=== PATIENT | male | born 1995 | race African-American/Black ===

== ENCOUNTER 2023-04-05 13:38 | Emergency (ER) | payer MEDICARE, MEDICAID, SELFPAY ==
[2023-04-05 13:54] VITALS: BP 166/124; PULSE 122; O2SAT 98
--- NOTE | 2023-04-05 13:57 | ED.PSYCH ---
HPI - Psych General Chief Complaint: Psychiatric Symptoms Stated Complaint: SECTION 12 Time Seen by Provider: 04/05/23 13:42 Source: patient Mode of arrival: EMS Limitations: no limitations History of Present Illness HPI Narrative: Patient comes to the emergency room via ambulance from home. Patient moved from [place] approximately 3 months ago. Per EMS, the patient's mother informed EMS that the patient has history of schizophrenia, patient has not been taking his medications for over 3 months. Patient admits that he has not been seen by a provider here yet. Patient denies suicidal or homicidal ideation. Patient states that he is able to care for himself. According to the patient's mother who told EMS, the patient cannot take care of himself, has been acting erratic. According to the patient's mother, the patient has been using unprescribed methamphetamines, Adderall Related Data Home Medications Medication Instructions Recorded Confirmed aripiprazole 5 mg tablet (Abilify) 5 mg PO DAILY 04/05/23 04/05/23 metformin 500 mg tablet 500 mg PO DAILY 04/05/23 04/05/23 Allergies Allergy/AdvReac Type Severity Reaction Status Date / Time No Known Allergies Allergy Verified 04/05/23 14:08 Review of Systems Review of Systems: Constitutional : No Weight loss, No Fever, No Chills, No Night Sweats, No Fatigue, No Malaise ENT/Mouth : No Hearing loss, No Ear Pain, No Nasal Congestion, No Sinus Pain, No Hoarseness, No sore throat, No Rhinorrhea, No Swallowing Difficulty Eyes: No Eye Pain, No Swelling, No Redness, No Foreign Body, No Discharge, No Vision Changes Cardiovascular : No Chest Pain, No SOB, No Dyspnea on Exertion, No Orthopnea, No Edema, No Palpitations Respiratory : No Cough, No Sputum, No Wheezing, No Smoke Exposure, No Dyspnea Gastrointestinal : No Nausea, No Vomiting, No Diarrhea, No Constipation, No abdominal Pain, No Hematochezia, No Melena Genitourinary : no irregular bleeding, No Dysuria, No Urinary Frequency, No Hematuria, No Urinary Incontinence, No Urgency, No Flank Pain, No Urinary Flow Changes, No Hesitancy Musculoskeletal : No joint pain, No Myalgias, No Joint Swelling Skin : No Skin Lesions, No rash Neuro : No Weakness, No Numbness, No Paresthesias, No Loss of Consciousness, No Dizziness, No Headache Psych : No Anxiety/Panic, No Depression, not suicidal, homicidal, states can take care of himself, admits being off medications Heme/Lymph: No Bruising, No Bleeding,No Lymphadenopathy Endocrine : No Polyuria, No Polydipsia, No Temperature Intolerance PMFSH Past Medical History Medical History (Updated 04/05/23 @ 14:05 by Beba Braden MD) Schizophrenia Social History Social History Smoked in Last 30 Days: No Use of substances other than those prescribed or required for medical reasons: No Advance Directives: No Advance Directives Information Provided: Yes Physical Exam Vital Signs: Vital Signs: Last Vital Signs Temp 98.1 F 04/05/23 13:58 Pulse 95 04/05/23 13:58 Resp 18 04/05/23 13:58 BP 149/106 H 04/05/23 13:58 Pulse Ox 100 04/05/23 13:58 O2 Del Method Room Air 04/05/23 13:58 BMI result Body Mass Index 27.1 Const: Other: Appearance: Alert. Oriented X3. No acute distress. Eyes: Pupils equal, round and reactive to light. Dilated pupils bilaterally ENT: Pharynx normal. Neck: Normal inspection. Neck supple. No lymph nodes noted. No crepitus CVS: Normal heart rate and rhythm. Pulses normal. Normal S1 and S2 Respiratory: No respiratory distress. Breath sounds normal. No Wheezing. No rales Abdomen: Soft and nontender. No rigidity. No distention. Skin: Skin warm and dry. Normal skin color. Normal skin turgor. Extremities: No lower extremity edema. No Lacerations. No Rash Neuro: Oriented X 3. No motor deficit. No sensory deficit. Moving all extremities. No slurred speech. CN 2 through 12 grossly intact Psych: calm, cooperative, odd affect Course Course Course Narrative: -patient's labs pending -patient was Section 12 in the community by a clinician -care team consult pending Medical Decision Making Medical Decision Making MDM Narrative: -care team evaluated the patient. At this time, patient will remain on a Section 12, care team will re-evaluate the patient in the morning. -per Care Team, requesting a case management consult, seems that patient is not taking his medications, family requesting a visiting nurse Differential Diagnosis Differential Diagnoses: The differential diagnosis associated with the presentation includes (Schizophrenia, bipolar disorder, polysubstance abuse) Admission/Observation Consideration of admission/observation: Escalation of care including admission/observation considered (Patient is on a Section 12, waiting to be seen by the care team to determine patient's disposition) Lab Data 04/05/23 15:10 04/05/23 15:10 Labs: Lab Results 04/05/23 04/05/23 Range/Units 14:01 15:10 WBC 8.0 (4.8-10.8) X10*3/uL RBC 5.04 (4.60-5.80) X10*6/uL Hgb 15.9 (14.0-18.0) g/dl Hct 44.9 (42.0-52.0) % MCV 89.1 (80.0-98.0) fL MCH 31.5 (27.0-33.0) pg MCHC 35.4 (31.0-36.0) g/dl RDW 11.9 (11.0-16.0) % Plt Count 305 (160-400) X10*3/uL MPV 10.1 (9.4-12.4) fL Immature Gran % (Auto) 0.3 (0.0-0.4) % Neut % (Auto) 69.1 (45-73) % Lymph % (Auto) 20.9 (20-40) % [place] % (Auto) 8.8 (2-11) % Eos % (Auto) 0.3 (0-4) % Baso % (Auto) 0.6 (0-2) % Lymph # (Auto) 1.7 (1.2-4.9) X10*3/uL [place] # (Auto) 0.7 (0.1-1.2) X10*3/uL Eos # (Auto) 0.0 (0.0-0.4) X10*3/uL Baso # (Auto) 0.1 (0.0-0.2) X10*3/uL Abs Immat Gran (auto) 0.02 (0.00-0.03) X10*3/uL Absolute Neuts (auto) 5.5 (2.0-8.3) x10*3/uL Absolute Nucleated RBC 0.000 (0.0-0.012) X10*3/uL Nucleated RBC % (auto) 0.0 (0.0-0.2) /100WBC Sodium 138 (135-145) mmol/L Potassium 3.0 L (3.3-5.1) mmol/L Chloride 102 (96-108) mmol/L Carbon Dioxide 25 (22-29) mmol/L Anion Gap 14 (12-20) BUN 18 H (9-16) mg/dL Creatinine 0.92 (0.5-1.4) mg/dL Estim Creat Clear Calc 131.2 Estimated GFR > 60 Random Glucose 115 (60-115) mg/dL Calcium 9.7 (8.4-10.2) mg/dL Total Bilirubin 0.7 (0.0-1.0) mg/dL Direct Bilirubin 0.3 (0.0-0.5) mg/dL AST 48 H (5-37) U/L ALT 44 H (0-40) U/L Alkaline Phosphatase 67 (39-117) U/L Total Protein 7.8 (6.5-8.0) g/dL Albumin 4.4 (3.5-5.0) g/dL Urine Color Dark Yellow Urine Appearance Clear Urine pH 6.0 (5.0-9.0) Ur Specific [place] >= 1.030 H (1.005-1.025) Urine Protein 100 (2+) H (Neg-Trace) mg/dL Urine Glucose (UA) Negative (Negative) mg/dL Urine Ketones 15 (Negative) mg/dL Urine Blood Negative (Negative) Urine Nitrite Negative (Negative) Ur Leukocyte Esterase Negative (Negative) Urine RBC 3-5 H (0-2) /HPF Urine WBC 0-5 (0-5) /HPF Ur Squamous Epith Cells 3-5 (0-2) /HPF Urine Bacteria None Seen (None Seen) Hyaline Casts 6-10 (0-2) /LPF Granular Casts Present Urine Opiates Screen Not Detected (Not Detect) Urine Fentanyl Screen Not Detected (Not Detect) Ur Barbiturates Screen Not Detected (Not Detect) Ur Phencyclidine Scrn Not Detected (Not Detect) Ur Amphetamines Screen POSITIVE H (Not Detect) U Benzodiazepines Scrn Not Detected (Not Detect) Urine Cocaine Screen Not Detected (Not Detect) U Marijuana (THC) Screen POSITIVE H (Not Detect) Ethyl Alcohol < 10 mg/dL Discharge Plan Discharge Clinical Impression: Schizophrenia Patient Disposition: Still a Patient Prescriptions: No Action metformin 500 mg Tablet 500 mg PO DAILY aripiprazole [Abilify] 5 mg Tablet 5 mg PO DAILY Interventions: [place]-Suicide Risk Severity Scale Last Done: 04/05/23 14:35
[2023-04-05 13:58] VITALS: BP 149/106; PULSE 95; RESP 18; TEMP 36.7; O2SAT 100; BMI 27.1
[2023-04-05 14:10] LABS: Appearance Urine Clear; Color Urine Dark Yellow; Glucose Urine UA Negative (Negative); Leukocyte Esterase Urine Negative (Negative); Nitrite Urine Negative (Negative); Specific Gravity - Urine >= 1.030 (1.005-1.025); UMIC TRIGGER UACC YES; Urine Blood Negative (Negative); Urine Ketones 15 mg/dL (Negative); Urine Protein 100 (2+) mg/dL (Neg-Trace)
[2023-04-05 14:17] LABS: Amphetamine Screen Urine POSITIVE (Not Detect); Barbiturates, Urine Not Detected (Not Detect); Benzodiazepines Screen Urine Not Detected (Not Detect); Cannabinoid Screen Urine POSITIVE (Not Detect); Cocaine Screen Urine Not Detected (Not Detect); Fentanyl, urine Not Detected (Not Detect); Opiate Screen Urine Not Detected (Not Detect); Phencyclidine Screen Urine Not Detected (Not Detect)
[2023-04-05 14:22] LABS: Bacteria Urine None Seen (None Seen); Granular Casts Urine Present; WBC Urine 0-5 /HPF (0-5)
--- NOTE | 2023-04-05 14:38 | PC.NURSE ---
Pt alert/oriented. Presents to ED on section 12 d/t family concerns. Pt appears anxious when spoken to however calm and polite. States here d/t argument with mother at home. But reports feeling safe in current environment. Denies SI or HI and denies history of it or attempts. Sitting on edge of bed, staring at surroundings, ?paranoia. Pt appears guarded and will only answer yes or no with most questions asked. Med rec completed
[2023-04-05 15:23] LABS: MANUAL DIFF FLAG NO
[2023-04-05 15:26] LABS: Basophils Absolute Auto 0.1 X10*3/uL (0.0-0.2); Basophils Percent Auto 0.6 % (0-2); Eosinophils Percent Auto 0.3 % (0-4); Hematocrit 44.9 % (42.0-52.0); Hemoglobin 15.9 g/dl (14.0-18.0); Imm Gran Abs Auto 0.02 X10*3/uL (0.00-0.03); Imm Gran Pct Auto 0.3 % (0.0-0.4); Lymphocytes Absolute Auto 1.7 X10*3/uL (1.2-4.9); Lymphocytes Percent Auto 20.9 % (20-40); Mean Corpuscular HGB Conc 35.4 g/dl (31.0-36.0); Mean Corpuscular Hemoglobin 31.5 pg (27.0-33.0); Mean Corpuscular Volume 89.1 fL (80.0-98.0); Mean Platelet Volume 10.1 fL (9.4-12.4); Monocytes Absolute Auto 0.7 X10*3/uL (0.1-1.2); Monocytes Percent Auto 8.8 % (2-11); Neutrophils Absolute Auto 5.5 x10*3/uL (2.0-8.3); Neutrophils Percent Auto 69.1 % (45-73); Platelet Count 305 X10*3/uL (160-400); Red Blood Count 5.04 X10*6/uL (4.60-5.80); Red Cell Distribution Width 11.9 % (11.0-16.0)
[2023-04-05 15:58] LABS: Alanine Aminotransferase 44 U/L (0-40); Albumin Level 4.4 g/dL (3.5-5.0); Alkaline Phosphatase 67 U/L (39-117); Anion Gap 14 (12-20); Aspartate Amino Transferase 48 U/L (5-37); Bilirubin Direct 0.3 mg/dL (0.0-0.5); Bilirubin Total 0.7 mg/dL (0.0-1.0); Blood Urea Nitrogen 18 mg/dL (9-16); Calcium 9.7 mg/dL (8.4-10.2); Carbon Dioxide 25 mmol/L (22-29); Chloride 102 mmol/L (96-108); Creatinine Clr Calc Pharmacy 131.2; Estimated Glomerular Filt Rate > 60; Ethanol < 10 mg/dL; Glucose Random 115 mg/dL (60-115); Sodium 138 mmol/L (135-145); Total Protein 7.8 g/dL (6.5-8.0)
--- NOTE | 2023-04-05 20:39 | MHC.CARE ---
T/W and Pt's mother discussed [facility] application process and she reports that she will follow through with this. VNA order has been put in by the provider to which the Pt is agreeable to. Mother would like to see if [facility] appointments could be moved to a closer date and is interested in a dairy nutritionist through [facility] to which the Pt is also agreeable to.
[2023-04-06 05:43] VITALS: BP 119/80; PULSE 99; RESP 18; TEMP 37.2; O2SAT 98
--- NOTE | 2023-04-06 08:22 | PC.NURSE ---
Late entry for resume of care at 0700, pt is currently resting comfortably safety measures in place, Q15 mintute checks maintained
[2023-04-06] MEDS: ARIPiprazole 5 MG TABLET PO (09:07)
[2023-04-06] MEDS: metFORMIN HCl 500 MG TABLET PO (09:07)
== END 2023-04-06 10:31 | disposition home or self-care (01) ==
PROVIDERS: Emergency Medicine; Emergency Provider Emergency Medicine Emergency Medical Services
DX: F25.9 Schizoaffective disorder, unspecified (principal); Z79.899 Other long term (current) drug therapy
CPT/HCPCS: 36415; 80048; 80076; 80307; 81001; 85025; 99284; 99285; S9485

== ENCOUNTER 2023-08-02 08:08 | Outpatient (AMB) | payer MEDICARE, MEDICAID, SELFPAY ==
--- NOTE | 2023-08-02 08:11 | A.OFFPC_ITS ---
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 Intake Note: Pt is here today to est care as a New Patient Allergies No Known Allergies Allergy (Verified 08/02/23 08:37) Medication List - Last Reconciled 08/02/23 by Candis Barksdale MD aripiprazole (Abilify) 15 mg PO DAILY Tobacco use date assessed: 08/02/23 Dental Screening Dental Screen Date: 08/02/23 Did you have a dental visit in the last 12 months?: No Was dental information given to patient?: Patient has dentist HPI 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 He recently came back here to [facility] after living in [place] for 5 years. Patient at that time was homeless, and was admitted at psychiatric unit for treatment of schizophrenia, Adderall abuse and history of cocaine use. As per his mother, there is strong family history of mental illness on both sides. He smokes cigarettes at least a pack a day and as per mother by psych [place] off the streets. He still has not been able to get an appointment to see a psychiatrist and getting contact with a therapist [facility] Medical History (Updated 08/08/23 @ 00:34 by Candis Barksdale MD) Elevated liver enzymes Adderall use disorder, mild, abuse History of cocaine use History of foot ulcer Schizophrenia Surgical History (Updated 08/02/23 @ 09:09 by Candis Barksdale MD) S/P ear surgery Family History (Updated 08/02/23 @ 09:13 by Candis Barksdale MD) Brother Substance use disorder Bipolar disorder Maternal Grandmother Schizophrenia Paternal Grandmother Mental health disorder Mother Diabetes mellitus Anxiety disorder Maternal Uncle Bipolar disorder Alcoholism Father Essential hypertension Social History [facility] Patient Tobacco Use Status: Current everyday Tobacco user Cigarette Packs Per Day: 1 e-Cigarette/Vaping Use: Currently Using service: No Current occupational status: unemployed Cognitive needs: No Hearing needs: No Vision needs: Yes Questionnaire PHQ-9 Over the last 2 weeks, how often have you been bothered by any of the following problems? 1. Little interest or pleasure in doing things: nearly every day 2. Feeling down, depressed, or hopeless: nearly every day 3. Trouble falling or staying asleep, or sleeping too much: nearly every day 4. Feeling tired or having little energy: more than half the days 5. Poor appetite or overeating: more than half the days 6. Feeling bad about yourself - or that you are a failure or have let yourself or your family down: more than half the days 7. Trouble concentrating on things, such as reading the newspaper or watching television: nearly every day 8. Moving or speaking so slowly that other people could have noticed. Or the opposite - being so fidgety or restless that you have been moving around a lot more than usual: not at all 9. Thoughts that you would be better off or of hurting yourself in some way: nearly every day Total score: 21 Depression Screening Interpretation: Positive (Diagnosed to have schizophrenia and cocaine and Adderall abuse, referred to mental health coordinator for as sistance in getting in to see psych) Depression Screening Follow-up: Existing condition and Community Mental Health Worker F/U Depression Screening Done: Yes 70434 - PHQ-9 Billing: Yes Source: Developed by Drs. Vasu Dang, Radha Rush, Sammy Nova and colleagues, with an educational reyna from [employer]. Thrive Questionnaire Date Thrive assessed: 08/02/23 I am a: Patient What is your living situation today?: I have a steady place to live Within the past 12 months, did the food you bought not last and you didn't have the money to get more?: Never true Within the past 12 months, did you worry whether your food would run out before you got money to buy more?: Never true Do you have trouble paying for medicines?: No Do you have trouble getting transportation to medical appointments?: No Do you have trouble paying your heating and electricity bill?: No Do you have trouble taking care of your child, family member or friend?: No Do you have trouble with day-to-day activities such as bathing, preparing meals, shopping, managing finances, etc.?: Yes Are you currently unemployed and looking for a job?: Yes Are you interested in more education?: No THRIVE Score: 0 AUDIT C Alcohol Use Questionnaire (AUDIT-C) 1. How often do you have a drink containing alcohol?: Never Total Score: 0 JESSIE-7 AMB Questionnaire JESSIE-7 Date JESSIE - 7 assessed: 08/02/23 Feeling nervous, anxious, or on edge: 0 = Not at all Not being able to stop or control worryin = Not at all Worrying too much about different things: 0 = Not at all Trouble relaxin = Not at all Being so restless that it is hard to sit still: 0 = Not at all Becoming easily annoyed or irritable: 0 = Not at all Feeling afraid as if something awful might happen: 0 = Not at all Total JESSIE-7 score (0-4 normal; 5-9 mild; 10-14 moderate; 15-21 severe): 0 Source: Developed by Drs. Vasu Dang, Radha Rush, Sammy Nova and colleagues, with an educational reyna from [employer]. JESSIE-7 Assessment Billing JESSIE-7 Assessment Tool: JESSIE-7 Assessment 39145 Review of Systems Const Details: Most of the history obtained from mother as patient not very communicative Reports as per HPI and Reports difficulty sleeping Eyes Reports no additional complaints ENT Reports nasal congestion, Denies nasal discharge, Denies nose pain, Denies post nasal drip, Denies sinus pain and Denies sinus pressure Card Denies chest pain, Denies irregular heart rhythm, Denies lightheadedness and Denies dyspnea Resp Denies cough and Denies dyspnea GI Reports no additional complaints Reports no additional complaints Musc Reports no additional complaints Skin/Breast Denies rash Neuro Reports behavioral changes and Denies seizure-like activity Psych Reports abnormal sleep pattern, Reports behavioral changes, Reports change in appetite, Reports auditory hallucinations, Reports anhedonia, Reports mood swings, Reports visual hallucinations and Reports hallucinations Endo Reports no additional complaints [place]lin/Lymph Reports no additional complaints Aller/Immun Reports no additional complaints Physical exam (Primary Care) Vital Signs: Last Vital Signs Pulse 67 08/02/23 08:13 BP 118/80 08/02/23 08:13 Pulse Ox 96 08/02/23 08:13 Oxygen Delivery Method Room Air 08/02/23 08:13 BMI result Body Mass Index 27.8 Tobacco/Smoking Status: Tobacco use Status Tobacco use date assessed 08/02/23 08/02/23 08:22 Patient Tobacco Use Status Current everyday Tobacco 08/02/23 08:22 e-Cigarette/Vaping Use Currently Using 08/02/23 08:22 PHQ-9: PHQ-9 Score PHQ-9: Total score 27 08/02/23 09:40 Depression Screening Interpretation: Positive (Diagnosed to have schizophrenia and cocaine and Adderall abuse, referred to mental health coordinator for assistance in getting in to see psych) Depression Screening Follow-up: Existing condition and Community Mental Health Worker F/U Thrive Assessment: Date of Thrive Assessment Date Thrive assessed 08/02/23 08/02/23 08:22 Const General: no acute distress and alert HENMT Head: Yes normocephalic Ears: external ears normal and TM's normal bilaterally General nose exam: Normal external nose present and No nasal discharge present Face and sinus: Yes face symmetric Mouth: Normal oral and palatal mucosa present, tongue normal, oropharynx normal and moist mucous membranes Eyes General: appearance normal, both eyes and all related structures Eyelids: Yes eyelids normal Conjunctivae: conjunctivae normal Sclerae: sclerae normal Pupils: Equal, round and reactive pupils present EOM: EOMs intact bilaterally Neck Neck: Yes full ROM, Yes no lymphadenopathy and Yes supple Thyroid: Thyroid normal Resp Effort & Inspection: normal respiratory effort Auscultation: clear to auscultation bilaterally Cardio Rate: regular rate Rhythm: regular rhythm Heart sounds: S1 normal heart sound present and S2 normal heart sound present GI Palpation (GI): Soft to palpation, nontender, no guarding and no masses Auscultation: normal bowel sounds General: Yes no CVA tenderness Male General Exam: No hernia Testes: no testicular mass Back/Spine/Pelvis Back: no CVA tenderness and No back tenderness Skin General skin exam: no rashes or lesions noted Neuro General: gait normal, moves all extremities, Normal light touch and pain sensation, no focal motor deficits and CN's II-XI intact bilaterally Cranial nerves: Yes Equal, round and reactive pupils present Cognition (Neuro): normal cognition Gait exam (Neuro): Normal gait present Motor exam (neuro): 5/5 motor strength present throughout Extrem General: Yes normal to inspection, Yes full ROM, Yes no joint enlargement, Yes no pedal edema and Yes normal gait Psych Appearance: grossly normal and well kempt Mental Status: mental status grossly normal Speech and movement: Slowed movement present (Neuro) Affect: Blunted affect present Attitude: cooperative Results AMB Hemoglobin A1c AMB Hemoglobin A1c 4.8 % Last Edit by Fransisco Rolon MA on 08/02/23 09:13 Results Reviewed Results Reviewed: Laboratory Last Values Hgb A1c (Clinic) 4.8 % (4.0-6.0) 08/02/23 09:07 Assessment and Plan Assessment & Plan (1) Elevated liver transaminase level: Code(s): R74.01 - Elevation of levels of liver transaminase levels (2) Annual visit for general adult medical examination with abnormal findings: Code(s): Z00.01 - Encounter for general adult medical examination with abnormal findings Plan: Will check appropriate labs. Recommended dental visit every 6 months and regular eye exams, at least every 2 years. Instructed to do self- testicular exam to check for any mass. No history of COVID vaccination, reminded to get yearly flu shot, up-to-date with his Tdap, received 2 MMR vaccine in the past as documented. (3) Hypokalemia: Code(s): E87.6 - Hypokalemia Plan: Noted to be having low potassium on previous labs, will check see potassium level (4) Elevated liver enzymes: Code(s): R74.8 - Abnormal levels of other serum enzymes Plan: Comprehensive metabolic panel ordered (5) Adderall use disorder, mild, abuse: Code(s): F15.10 - Other stimulant abuse, uncomplicated Plan: Referred to see addiction clinic at [place] with my request (6) History of cocaine use: Code(s): F14.91 - Cocaine use, unspecified, in remission Plan: Referred to addiction medicine clinic in [place] for further assistance and help with substance abuse Orders: Orders TSH reflex Free T4 08/02/23 E87.6 - Hypokalemia, R73.01 - Impaired fasting glucose, R74.01 - Elevation of levels of liver transaminase levels, Z00.01 - Encounter for general adult medical examination with abnormal findings, Z13.220 - Encounter for screening for lipoid disorders Comprehensive [place]. Panel Fast 08/02/23 E87.6 - Hypokalemia, R73.01 - Impaired fasting glucose, R74.01 - Elevation of levels of liver transaminase levels, Z00.01 - Encounter for general adult medical examination with abnormal findings, Z13.220 - Encounter for screening for lipoid disorders Complete Blood Count Auto Diff 08/02/23 E87.6 - Hypokalemia, R73.01 - Impaired fasting glucose, R74.01 - Elevation of levels of liver transaminase levels, Z00.01 - Encounter for general adult medical examination with abnormal findings, Z13.220 - Encounter for screening for lipoid disorders Vitamin D 25-OH Total 08/02/23 E87.6 - Hypokalemia, R73.01 - Impaired fasting glucose, R74.01 - Elevation of levels of liver transaminase levels, Z00.01 - Encounter for general adult medical examination with abnormal findings, Z13.220 - Encounter for screening for lipoid disorders Vitamin B12 and Folate 08/02/23 E87.6 - Hypokalemia, R73.01 - Impaired fasting glucose, R74.01 - Elevation of levels of liver transaminase levels, Z00.01 - Encounter for general adult medical examination with abnormal findings, Z13.220 - Encounter for screening for lipoid disorders AMB Hemoglobin A1c 08/02/23 Z13.9 - Encounter for screening, unspecified AMB EKG-In Office 08/02/23 F14.91 - Cocaine use, unspecified, in remission, F15.10 - Other stimulant abuse, uncomplicated AMB Hemoglobin A1c 08/02/23 R73.01 - Impaired fasting glucose Coding Level of Care Code New Pt [facility] Care [id number] Diagnoses Elevated liver transaminase level R74.01 Annual visit for general adult medical examination with abnormal findings Z00.01 Hypokalemia E87.6 Elevated liver enzymes R74.8 Adderall use disorder, mild, abuse F15.10 History of cocaine use F14.91 Additional Codes JESSIE-7 Assessment Billing - JESSIE-7 Assessment Tool: JESSIE-7 Assessment [id number] ([id number])
[2023-08-02 08:13] VITALS: BP 118/80; PULSE 67; O2SAT 96; BMI 27.8
== END 2023-08-02 17:18 | disposition home or self-care (01) ==
PROVIDERS: PCP Internal Medicine; Visit Provider Internal Medicine
DX: R73.01 Impaired fasting glucose (principal)
CPT/HCPCS: 83036; 99385

== ENCOUNTER 2023-08-02 09:41 | Outpatient (REF) | payer MEDICARE, MEDICAID, SELFPAY ==
[2023-08-02 10:26] LABS: MANUAL DIFF FLAG NO
[2023-08-02 10:35] LABS: Basophils Absolute Auto 0.1 X10*3/uL (0.0-0.2); Basophils Percent Auto 0.9 % (0-2); Eosinophils Absolute Auto 0.1 X10*3/uL (0.0-0.4); Eosinophils Percent Auto 2.1 % (0-4); Hematocrit 45.6 % (42.0-52.0); Hemoglobin 15.4 g/dl (14.0-18.0); Imm Gran Abs Auto 0.01 X10*3/uL (0.00-0.03); Imm Gran Pct Auto 0.2 % (0.0-0.4); Lymphocytes Absolute Auto 2.2 X10*3/uL (1.2-4.9); Mean Corpuscular HGB Conc 33.8 g/dl (31.0-36.0); Mean Corpuscular Hemoglobin 31.6 pg (27.0-33.0); Mean Corpuscular Volume 93.6 fL (80.0-98.0); Mean Platelet Volume 9.8 fL (9.4-12.4); Monocytes Absolute Auto 0.3 X10*3/uL (0.1-1.2); Neutrophils Absolute Auto 2.9 x10*3/uL (2.0-8.3); Neutrophils Percent Auto 51.8 % (45-73); Platelet Count 292 X10*3/uL (160-400); Red Blood Count 4.87 X10*6/uL (4.60-5.80); Red Cell Distribution Width 13.1 % (11.0-16.0); White Blood Count 5.7 X10*3/uL (4.8-10.8)
[2023-08-02 11:19] LABS: Alanine Aminotransferase 12 U/L (0-40); Albumin Level 4.2 g/dL (3.5-5.0); Alkaline Phosphatase 66 U/L (39-117); Anion Gap 10 (12-20); Aspartate Amino Transferase 15 U/L (5-37); Bilirubin Total 0.2 mg/dL (0.0-1.0); Blood Urea Nitrogen 10 mg/dL (9-16); Calcium 9.8 mg/dL (8.4-10.2); Carbon Dioxide 32 mmol/L (22-29); Chloride 105 mmol/L (96-108); Estimated Glomerular Filt Rate > 60; Glucose Fasting 77 mg/dL (60-99); Potassium 3.9 mmol/L (3.3-5.1); Sodium 143 mmol/L (135-145); Total Protein 7.2 g/dL (6.5-8.0)
[2023-08-02 11:35] LABS: TSH reflex Free T4 1.33 uIU/mL (0.32-4.0); Vitamin D 25-OH Total 11.3 ng/mL (>30)
[2023-08-02 12:27] LABS: Folate 5.6 ng/mL (> or = 4.0); Vitamin B12 529 pg/mL (200-900)
== END 2023-08-02 09:42 | disposition home or self-care (01) ==
LOC: HO.HMGCLDS 09:41
PROVIDERS: PCP Internal Medicine; Visit Provider Internal Medicine
DX: Z00.00 Encounter for general adult medical examination without abnormal findings (principal); R73.01 Impaired fasting glucose; Z13.220 Encounter for screening for lipoid disorders; Z13.9 Encounter for screening, unspecified; E87.6 Hypokalemia; R74.01 Elevation of levels of liver transaminase levels
CPT/HCPCS: 36415; 80053; 82306; 82607; 82746; 84443; 85025

== ENCOUNTER 2023-10-03 15:40 | Outpatient (AMB) | payer MEDICARE, MEDICAID, SELFPAY ==
[2023-10-03 15:47] VITALS: BP 140/80; PULSE 127; O2SAT 96; BMI 26.7
--- NOTE | 2023-10-03 15:47 | MHC.OFFWIV ---
Intake Vital Signs 10/03/23 15:47 Height 6 ft Weight 197 lb BMI 26.7 BP 140/80 H Blood Pressure Location Rt brachial Position Sitting Pulse 127 H Pulse Source Pulse Oximeter Pulse Oximetry (%) 96 Oxygen Delivery Method Room Air Intake Visit Reasons: EP RT eye Intake Note: Pt is here today c/o Rt eye bothering thinks something in it Patient Tobacco Use Status: Current everyday Tobacco user Allergies No Known Allergies Allergy (Verified 10/03/23 15:47) HPI HPI Comments History of Present Illness Details 28 y/o male patient who presents to walk in clinic with c/o right eye pain for 2 months now. Denies light sensitivity. Denies headaches, lightheadedness, nausea or vomiting. Denies Injury or trauma to the eye. [facility] Medical History (Updated 08/08/23 @ 00:34 by Candis Barksdale MD) Elevated liver enzymes Adderall use disorder, mild, abuse History of cocaine use History of foot ulcer Schizophrenia Surgical History (Updated 08/02/23 @ 09:09 by Candis Barksdale MD) S/P ear surgery Family History (Updated 08/02/23 @ 09:13 by Candis Barksdale MD) Brother Substance use disorder Bipolar disorder Maternal Grandmother Schizophrenia Paternal Grandmother Mental health disorder Mother Diabetes mellitus Anxiety disorder Maternal Uncle Bipolar disorder Alcoholism Father Essential hypertension Social History Housing: Condominium Patient Tobacco Use Status: Current everyday Tobacco user Cigarette Packs Per Day: 1 e-Cigarette/Vaping Use: Currently Using service: No Current occupational status: unemployed Cognitive needs: No Hearing needs: No Vision needs: Yes Review of Systems Const All systems reviewed & are unremarkable except as noted in HPI and below Physical Exam Vital Signs: Last Vital Signs Pulse 127 H 10/03/23 15:47 BP 140/80 H 10/03/23 15:47 Pulse Ox 96 10/03/23 15:47 Oxygen Delivery Method Room Air 10/03/23 15:47 BMI result Body Mass Index 26.7 HEENT Head: Yes normocephalic Ears: external ears normal and TM's normal bilaterally General nose exam: Normal nasal mucous membranes and turbinates present Eyes Eyelids: Yes eyelids normal Conjunctivae: conjunctivae normal Sclerae: sclerae normal Corneas: corneas normal Pupils: Equal, round and reactive pupils present EOM: EOMs intact bilaterally Direct Ophthalmoscopy: normal light reflex Neuro General: gait normal and moves all extremities Cranial nerves: Yes Equal, round and reactive pupils present Psych Attitude: cooperative Assessment & Plan Assessment & Plan (1) Ocular pain, right eye: Code(s): H57.11 - Ocular pain, right eye Plan: Eye exam WNL, hemorrhage, swelling or infection. No clear etiology for the pain' Provided Pt with [facility] [place]. Pt to call for an Appointment As soon as available. Coding Level of Care Code Est Pt Level 3 (24107) Diagnoses Ocular pain, right eye H57.11 Time Spent (min) 15
== END 2023-10-03 16:21 | disposition home or self-care (01) ==
PROVIDERS: PCP Internal Medicine; Visit Provider Nurse Practitioner Family
DX: H57.11 Ocular pain, right eye (principal)
CPT/HCPCS: 99213

== ENCOUNTER 2024-01-14 22:22 | Inpatient (IN) | payer MEDICARE, OTHER, MEDICAID, SELFPAY ==
--- NOTE | 2024-01-14 | ECG_ITS ---
Test Reason : TACHYCARDIA Blood Pressure : / mmHG Vent. Rate : 127 BPM Atrial Rate : 127 BPM P-R Int : 154 ms QRS Dur : 096 ms QT Int : 318 ms P-R-T Axes : 054 069 056 degrees QTc Int : 462 ms Sinus tachycardia Possible Left atrial enlargement Borderline ECG No previous ECGs available Referred By: Generic ED Physician Electronically Signed By:NICK DASILVA
[2024-01-14 22:30] VITALS: BP 210/100; PULSE 147; O2SAT 98
[2024-01-14 22:33] VITALS: BP 149/83; PULSE 128; RESP 22; TEMP 37.1; O2SAT 99; BMI 29.3
--- NOTE | 2024-01-14 22:42 | PC.NURSE ---
belongings located in C5 pt changed over by security
[2024-01-14 23:18] LABS: MANUAL DIFF FLAG NO
[2024-01-14 23:19] LABS: Basophils Percent Auto 0.4 % (0-2); Eosinophils Percent Auto 0.4 % (0-4); Hematocrit 42.1 % (42.0-52.0); Hemoglobin 14.9 g/dl (14.0-18.0); Imm Gran Abs Auto 0.03 X10*3/uL (0.00-0.03); Imm Gran Pct Auto 0.3 % (0.0-0.4); Lymphocytes Absolute Auto 1.4 X10*3/uL (1.2-4.9); Lymphocytes Percent Auto 14.8 % (20-40); Mean Corpuscular HGB Conc 35.4 g/dl (31.0-36.0); Mean Corpuscular Volume 90.5 fL (80.0-98.0); Mean Platelet Volume 9.4 fL (9.4-12.4); Monocytes Absolute Auto 0.6 X10*3/uL (0.1-1.2); Monocytes Percent Auto 6.4 % (2-11); Neutrophils Absolute Auto 7.4 x10*3/uL (2.0-8.3); Neutrophils Percent Auto 77.7 % (45-73); Platelet Count 236 X10*3/uL (160-400); Red Blood Count 4.65 X10*6/uL (4.60-5.80); White Blood Count 9.5 X10*3/uL (4.8-10.8)
[2024-01-14 23:21] LABS: Appearance Urine Clear; Color Urine Dark Yellow; Glucose Urine UA Negative (Negative); Leukocyte Esterase Urine Negative (Negative); Nitrite Urine Negative (Negative); Specific Gravity - Urine >= 1.030 (1.005-1.025); UMIC TRIGGER UACC YES; Urine Blood Negative (Negative); Urine Ketones Trace mg/dL (Negative); Urine Protein 30 (1+) mg/dL (Neg-Trace)
[2024-01-14 23:29] LABS: Amphetamine Screen Urine Not Detected (Not Detect); Barbiturates, Urine Not Detected (Not Detect); Benzodiazepines Screen Urine Not Detected (Not Detect); Buprenorphine Scr Not Detected (Not Detect); Cannabinoid Screen Urine POSITIVE (Not Detect); Cocaine Screen Urine POSITIVE (Not Detect); Fentanyl, urine Not Detected (Not Detect); Methadone Screen, Urine Not Detected (Not Detect); Opiate Screen Urine Not Detected (Not Detect); Oxycodone Screen Urine Not Detected (Not Detect); Phencyclidine Screen Urine Not Detected (Not Detect)
[2024-01-14 23:38] LABS: Alanine Aminotransferase 13 U/L (0-40); Albumin Level 4.5 g/dL (3.5-5.0); Alkaline Phosphatase 59 U/L (39-117); Anion Gap 15 (12-20); Aspartate Amino Transferase 25 U/L (5-37); Bilirubin Total 0.4 mg/dL (0.0-1.0); Blood Urea Nitrogen 18 mg/dL (9-16); Calcium 9.6 mg/dL (8.4-10.2); Carbon Dioxide 26 mmol/L (22-29); Chloride 105 mmol/L (96-108); Creatinine Clr Calc Pharmacy 99.5; Estimated Glomerular Filt Rate > 60; Ethanol < 10 mg/dL; Glucose Random 100 mg/dL (60-115); Potassium 3.5 mmol/L (3.3-5.1); Sodium 142 mmol/L (135-145); Total Protein 7.5 g/dL (6.5-8.0)
[2024-01-14 23:49] LABS: Bacteria Urine None Seen (None Seen); Hyaline Casts Urine >20 /LPF (0-2); RBC Urine 0-2 /HPF (0-2); Squamous Epithelial Cell Urine 0-2 /HPF (0-2); WBC Urine 0-5 /HPF (0-5)
--- NOTE | 2024-01-14 23:49 | ED.PSYCH ---
HPI - Psych General Chief Complaint: Psychiatric Symptoms Stated Complaint: crisis Time Seen by Provider: 01/14/24 22:59 Source: patient Mode of arrival: EMS Limitations: no limitations History of Present Illness ED Provider: chepe MERIDA Narrative: Patient 28 years old with your schizophrenia off medication for last day several days history of cocaine use making sexually inappropriate gastric towards mother clarke pascual believes that he is surrounded by snakes [address] evaluation the patient's patient asking for his Adderall at this time not focus Related Data Home Medications ?Medication ?Instructions ?Recorded ?Confirmed aripiprazole 5 mg tablet (Abilify) 15 mg PO DAILY 08/02/23 08/02/23 Previous Rx's ?Medication ?Instructions ?Recorded cholecalciferol (vitamin D3) 1,250 1,250 mcg PO QWEEK 3 months #13 09/22/23 mcg (50,000 unit) capsule caps Allergies Allergy/AdvReac Type Severity Reaction Status Date / Time No Known Allergies Allergy Verified 01/14/24 22:34 Review of Systems Review of Systems: Yes all other systems are reviewed and are negative [facility] Past Medical History Medical History Elevated liver enzymes Adderall use disorder, mild, abuse History of cocaine use History of foot ulcer Schizophrenia Surgical History S/P ear surgery Family History Family History Brother Substance use disorder Bipolar disorder Maternal Grandmother Schizophrenia Paternal Grandmother Mental health disorder Mother Diabetes mellitus Anxiety disorder Maternal Uncle Bipolar disorder Alcoholism Father Essential hypertension Social History Social History Housing: Condominium Alcohol intake: never Patient Tobacco Use Status: Current everyday Tobacco user Cigarette Packs Per Day: 1 Smoked in Last 30 Days: Yes e-Cigarette/Vaping Use: Currently Using Use of substances other than those prescribed or required for medical reasons: Yes Substance Use Type: Marijuana Advance Directives: No Advance Directives Information Provided: No service: No Current occupational status: unemployed Cognitive needs: No Hearing needs: No Vision needs: Yes Physical Exam Vital Signs: Vital Signs: Last Vital Signs Temp 98.7 F 01/14/24 22:33 Pulse 128 H 01/14/24 22:33 Resp 22 H 01/14/24 22:33 BP 149/83 H 01/14/24 22:33 Pulse Ox 99 01/14/24 22:33 BMI result Body Mass Index 29.3 Appearance: Alert. Oriented X3. No acute distress. Anxious Eyes: PERRLA, No Nystagmus ENT: Pharynx normal. Oral Mucosa moist Neck: Normal inspection. Neck supple. CVS: Normal heart rate and rhythm. Pulses normal. Respiratory: No respiratory distress. Equal air entry bilateral, no wheezing/rales/rhonchi Abdomen: Soft and nontender. Bowel sounds are present, no mass palpable, no CVA tenderness Skin: Skin warm and dry. Normal skin color. Normal skin turgor. Extremities: No lower extremity edema. No calf tenderness Neuro: Oriented X 3. No motor deficit. No sensory deficit.No cerebellar signs , cranial nerves II-XII intact Medications Administered Discontinued Medications Generic Name Dose Route Start Last Admin Trade Name Lindenq PRN Reason Stop Dose Admin Lorazepam 2 mg 01/14/24 23:49 01/15/24 00:16 Lorazepam 1 Mg Tablet PO 01/14/24 23:50 2 mg ONCE ONE Administration Medical Decision Making Medical Decision Making [facility] Narrative: Patient with schizophrenia with paranoid with cocaine use will get care team eval Differential Diagnosis Differential Diagnoses: The differential diagnosis associated with the presentation includes Lab Data [facility] Lab Attestation statement: I reviewed the patient's lab results. 01/14/24 23:13 01/14/24 23:13 Labs: Lab Results 01/14/24 Range/Units 23:13 WBC 9.5 (4.8-10.8) X10*3/uL RBC 4.65 (4.60-5.80) X10*6/uL Hgb 14.9 (14.0-18.0) g/dl Hct 42.1 (42.0-52.0) % MCV 90.5 (80.0-98.0) fL MCH 32.0 (27.0-33.0) pg MCHC 35.4 (31.0-36.0) g/dl RDW 12.0 (11.0-16.0) % Plt Count 236 (160-400) X10*3/uL MPV 9.4 (9.4-12.4) fL Immature Gran % (Auto) 0.3 (0.0-0.4) % Neut % (Auto) 77.7 H (45-73) % Lymph % (Auto) 14.8 L (20-40) % [place] % (Auto) 6.4 (2-11) % Eos % (Auto) 0.4 (0-4) % Baso % (Auto) 0.4 (0-2) % Lymph # (Auto) 1.4 (1.2-4.9) X10*3/uL [place] # (Auto) 0.6 (0.1-1.2) X10*3/uL Eos # (Auto) 0.0 (0.0-0.4) X10*3/uL Baso # (Auto) 0.0 (0.0-0.2) X10*3/uL Abs Immat Gran (auto) 0.03 (0.00-0.03) X10*3/uL Absolute Neuts (auto) 7.4 (2.0-8.3) x10*3/uL Absolute Nucleated RBC 0.000 (0.0-0.012) X10*3/uL Nucleated RBC % (auto) 0.0 (0.0-0.2) /100WBC Sodium 142 (135-145) mmol/L Potassium 3.5 (3.3-5.1) mmol/L Chloride 105 (96-108) mmol/L Carbon Dioxide 26 (22-29) mmol/L Anion Gap 15 (12-20) BUN 18 H (9-16) mg/dL Creatinine 1.29 (0.5-1.4) mg/dL Estim Creat Clear Calc 99.5 Estimated GFR > 60 Random Glucose 100 (60-115) mg/dL Calcium 9.6 (8.4-10.2) mg/dL Total Bilirubin 0.4 (0.0-1.0) mg/dL AST 25 (5-37) U/L ALT 13 (0-40) U/L Alkaline Phosphatase 59 (39-117) U/L Total Protein 7.5 (6.5-8.0) g/dL Albumin 4.5 (3.5-5.0) g/dL Urine Color Dark Yellow Urine Appearance Clear Urine pH 6.0 (5.0-9.0) Ur Specific [place] >= 1.030 H (1.005-1.025) Urine Protein 30 (1+) H (Neg-Trace) mg/dL Urine Glucose (UA) Negative (Negative) mg/dL Urine Ketones Trace (Negative) mg/dL Urine Blood Negative (Negative) Urine Nitrite Negative (Negative) Ur Leukocyte Esterase Negative (Negative) Urine RBC 0-2 (0-2) /HPF Urine WBC 0-5 (0-5) /HPF Ur Squamous Epith Cells 0-2 (0-2) /HPF Urine Bacteria None Seen (None Seen) Hyaline Casts >20 (0-2) /LPF Urine Opiates Screen Not Detected (Not Detect) Ur Buprenorphine Scrn Not Detected (Not Detect) ng/mL Ur Oxycodone Screen Not Detected (Not Detect) ng/mL Urine Methadone Screen Not Detected (Not Detect) ng/mL Urine Fentanyl Screen Not Detected (Not Detect) Ur Barbiturates Screen Not Detected (Not Detect) Ur Phencyclidine Scrn Not Detected (Not Detect) Ur Amphetamines Screen Not Detected (Not Detect) U Benzodiazepines Scrn Not Detected (Not Detect) Urine Cocaine Screen POSITIVE H (Not Detect) U Marijuana (THC) Screen POSITIVE H (Not Detect) Ethyl Alcohol < 10 mg/dL Discharge Plan Discharge Clinical Impression: Chronic schizophrenia Patient Disposition: Still a Patient Prescriptions: No Action cholecalciferol (vitamin D3) 1,250 mcg (50,000 unit) capsule 1,250 mcg PO QWEEK 90 Days Qty: 13 0RF aripiprazole [Abilify] 5 mg tablet 15 mg PO DAILY Interventions: [place]-Suicide Risk Severity Scale Last Done: 01/15/24 00:00 Print Language: Khmer
[2024-01-15] MEDS: LORazepam 1 MG TABLET 2 MG PO ×2 (00:16→04:26)
--- NOTE | 2024-01-15 00:30 | PC.NURSE ---
Addendum entered by Carmen Abernathy 01/15/24 03:12: Pt denies SI/HI. Admits to seeing snakes at home. Original Note: This development writer assumed care at 2300. Pt A&Ox2, denies any pain. States he needs to use the phone to call his mother to warn her about the snakes . Pt redirected, and medicated per JUN.
--- NOTE | 2024-01-15 03:13 | PC.NURSE ---
Pt increasingly paranoid, asking for the phone to call his mother, asking if police is coming to pick him up. Pt redirected. 1:1 sitter at bedside.
[2024-01-15] MEDS: HaloperidoL 5 MG TABLET 10 MG PO (04:26)
[2024-01-15] MEDS: diphenhydrAMINE HCL 25 MG CAPSULE 50 MG PO (04:26)
--- NOTE | 2024-01-15 04:42 | PC.NURSE ---
Assumed care of pt at 0330, pt anxious and paranoid, repetitively asking the same questions requesting a phone, stating he has an emergency and there are snakes in his home and he needs to call his mom. Md made aware and assessed pt. Pt requesting his doctor and despite several attempts at redirecting pt continues to get up and request phone, doctor and to go home. Md ordered for PO Benadryl, ativan and haldol. Pt took medication without difficulty, escorted to the bathroom, sitter at bedside.
[2024-01-15 05:47] VITALS: BP 154/62; PULSE 100; RESP 18; TEMP 36.5; O2SAT 97
--- NOTE | 2024-01-15 07:15 | PC.NURSE ---
Resumed care of patient at 0700, patient is currently resting comfortably, order placed for breakfast tray at this time. Pt offers no complaints, awaiting care team at this time
--- NOTE | 2024-01-15 09:54 | PC.NURSE ---
pt currently sleeping 1:1 sitter at bedside, rr equal/non labored, vitals previously stable, will continue with plan of care
--- NOTE | 2024-01-15 10:21 | MHC.CARE ---
Pt mother called and wants to speak with CARE team Vidya Barrientos [phone]
[2024-01-15 10:45] VITALS: BP 116/60; PULSE 92; RESP 18; TEMP 36.4; O2SAT 99
--- NOTE | 2024-01-15 11:01 | PC.NURSE ---
med req- this nurse called pharmacy to have a med req performed. they will be calling [facility] to update the med req
--- NOTE | 2024-01-15 12:17 | PC.NURSE ---
assumed careof pt at 1100- pt currently talking with mother on [facility] phone
--- NOTE | 2024-01-15 13:21 | PC.NURSE ---
care team at bedside
--- NOTE | 2024-01-15 14:39 | PC.NURSE ---
pt up eating lunch no apparent distress at this time- care team meeting complete, sitter remains at bedside
--- NOTE | 2024-01-15 16:19 | PC.NURSE ---
pt boarding in dept- resting on stretcher with eyes closed, audible snoring, NAD noted
--- NOTE | 2024-01-15 16:33 | MHC.CARE ---
Pt is an adult [facility] bedsearch. Section 12A placed in chart.
[2024-01-15 20:30] VITALS: BP 112/64; PULSE 80; RESP 16; TEMP 36.7; O2SAT 98
--- NOTE | 2024-01-16 06:11 | PC.NURSE ---
continues to rest quietly on stretcher with even and unlabored respirations. patient observer remains at bedside for patient safety.
[2024-01-16 06:14] VITALS: BP 110/64; PULSE 98; RESP 16; TEMP 36.1; O2SAT 98
--- NOTE | 2024-01-16 10:42 | MHC.CARE ---
Marie spoke with Roberto's mother and updated her that he has been accepted to the psychiatric unit at [facility] for today. She inquired about a time and which unit however Marie did not have this information at this time. She provided me with Desiree's phone number who is Roberto's ACCS worker. Left message for Desiree at [phone]. Father's name is Kevin and his phone number is [phone]
[2024-01-16 13:51] VITALS: BP 139/73; PULSE 79; RESP 16; TEMP 36.7; O2SAT 99
--- NOTE | 2024-01-16 15:48 | PC.NURSE ---
PT DECLINED NRT OR FLU SHOT
--- NOTE | 2024-01-16 16:49 | PC.ADMIT ---
Roberto is a 28yo male who arrived to the unit at 13:51 via wheel chair from [facility]. Skin check performed, vitals obtained and patient oriented to the unit. Pt was disorganized, repeating questions, giving conflicting answers and minimized the events surrounding his admission, therefor was unable to participate in admission process. I'm fine, I want to leave. Nothing bad happened Per crisis evaluation, Roberto resides with his mother, holds a DX of schizophrenia and MACIE and has been off his medications for an unknown period of time. Pt was using cocoaine for several days and began seeing VH of snakes. Roberto was reported to run into his mothers run, making sexual gestures and looking up her skirt. He was picked up by [place] PD running naked to his neighbors house.
--- NOTE | 2024-01-16 17:24 | PC.ADMIT ---
Mello is a 28y male, admitted from [facility] and arrived on the unit at 13:51. Skin check performed, vitals obtained and pt oriented to the unit. Pt presented as disorganzied, giving conflicting answers, and minimizing the event leading to his admission and provided minimal information during admission process and stated, I'm fine. Nothing happened. I want top leave . He declined a CV and is currently a section 12B. Per crisis evaluation, Roberto resides with his mother and her partner who is medically compromised and wheel-chair bound. He holds a dx of schizophrenia and MACIE and has been off his medication for an unknown period of time. Roberto had been using marijuana and cocaine for several days and began having VH of snakes. Additionally, he ran into his mothers room, started making sexual gestures, inappropriate comments, and looked up her skirt. He was then picked up by police after going to his neighbors house naked. Tox screen positive for marijuana and cocaine. Per crisis evaluation, mother reports he sits in his room, self dialoguing and smoking cigarettes all day. She also states he needed reconstructive ear surgery because he literally lost them in [place] (?). She states he was running the streets in [place] doing different drugs and was then conserved for 10 months at a facility there. He has current providers through [facility] in [place] who are helping complete [facility] guardianship paperwork and getting him into residential housing. He currently on 15min checks for safety.
[2024-01-16 20:00] VITALS: BP 143/74; PULSE 86; RESP 16; TEMP 36.4; O2SAT 99
[2024-01-17 08:34] VITALS: BP 119/67; PULSE 60; RESP 16; TEMP 36.9; O2SAT 97
[2024-01-17 10:44] LABS: Cholesterol 187 mg/dL (<200); HDL Cholesterol 40 mg/dL (>40); LDL Cholesterol Calculated 124 mg/dL (<100); Triglycerides 115 mg/dL (<150)
[2024-01-17 10:50] LABS: Estimated Average Glucose 91 mg/dL; Hemoglobin A1C 112.6976 umol/L; Hemoglobin A1c % 4.8 % (<6.0); Total Hemoglobin (HGBA1C) 3830.1022 umol/L
[2024-01-17] MEDS: Paliperidone ER 6 MG TAB.ER.24 PO (12:10)
[2024-01-17] MEDS: Divalproex Sodium Sprinkles 125 MG CAP.DR.SPR PO (12:10)
[2024-01-17] MEDS: Divalproex Sodium 500 MG TABLET.DR 1000 MG PO (12:10)
[2024-01-17] MEDS: ARIPiprazole 20 MG TABLET PO (12:10)
[2024-01-17] MEDS: Benztropine Mesylate 1 MG TABLET PO (12:10)
--- NOTE | 2024-01-17 12:54 | PC.NURSE ---
01/17/24 signed a CV then signed a 3 day up on 01/20/24.
--- NOTE | 2024-01-17 14:01 | HO.PSYADMNOT ---
HPI Date of Service: 01/17/24 Chief Complaint: psychosis Sources of Information: patient interviewed, chart reviewed and crisis/core team assessment reviewed HPI Subjective Notes: Rouse Warning, Conditional Voluntary and 3 Day Narrative: Patient is a 28-year-old male with history of schizophrenia, cocaine use disorder and stimulant use disorder who was brought in by EMS due to being found running outside naked secondary to medication noncompliance and cocaine use. Per crisis report, patient was found running outside naked by police. Per family, patient has schizophrenia has been off his medications and has been using cocaine. Pt presented with increased paranoia and believes that he was surrounded by snakes. Patient has a hx of frequent visual hallucinations. Patient also ran over to the neighbor's house naked. He denied SI/HI/AH. Per patient's mother, patient was living on the streets in [place] and was conserved for 10 months on an inpatient unit. Patient's mother is working with [facility] to file [facility] paperwork for guardianship. Patient has outpatient psychiatric providers through [facility]. Patient's mother's filed section 35 and pt received treatment from October 2023- December 13 2023. Utox positive for cocaine and marijuana. Patient denied any other substance use. During admission assessment, patient presents alert and oriented x3. Calm and cooperative. long term care social worker, Melisa, present during assessment. Patient reports feeling okay ; patient stated, I'm a normal kid. I take my meds. I got into cocaine and something crazy happened and I started seeing snakes and running naked. I think it was the amount of cocaine that I was taking . Patient reports he is medication compliant. He reports using one bag of cocaine every few days ; he is unable to specify amount. Patient reports smoking marijuana daily. Denies any other substance use. denies hx of SA/SIB. Patient signed 3 day notice stating that he does not feel like he needs to be inpatient in that he just took too much cocaine which made him act in a bizarre manner. Patient denies SI/HI/VH/AH. Medical Evaluation Reviewed: Yes [facility] Medical History (Updated 01/17/24 @ 17:24 by Roseanna Rawls NP) Elevated liver enzymes Adderall use disorder, mild, abuse History of cocaine use History of foot ulcer Schizophrenia Surgical History S/P ear surgery Family History: Denies Social History: Lives with mother and stepdad. Single. No kids. Disability. High school diploma. Substance History: Patient reports using 1 bag of cocaine every few days and smoking marijuana daily. Denies any other substance use. Trauma History: Denies Diagnostics Vital Signs (24Hr): Vital Signs - 24 hr 01/16/24 20:00 01/17/24 08:34 Temperature 97.6 F 98.5 F Pulse Rate 86 60 Respiratory Rate 16 16 Blood Pressure 143/74 H 119/67 Pulse Oximetry 99 97 Oxygen Delivery Method Room Air Room Air BMI result Body Mass Index 29.3 Labs 01/14/24 23:13 01/14/24 23:13 Labs: Laboratory Results - last 48 hr 01/17/24 09:46 Estimat Average Glucose 91 Hemoglobin A1c % 4.8 Triglycerides 115 Cholesterol 187 LDL Cholesterol, Calc 124 H HDL Cholesterol 40 L Meds/Allergies Meds Home Medications ?Medication ?Instructions ?Recorded ?Confirmed ?Type aripiprazole 20 mg tablet 20 mg PO DAILY 01/15/24 01/17/24 History benztropine 1 mg tablet 1 mg PO DAILY 01/15/24 01/17/24 History divalproex 125 mg tablet,delayed 125 mg PO DAILY 01/15/24 01/17/24 History release divalproex 500 mg tablet,delayed 1,000 mg PO DAILY 01/15/24 01/17/24 History release paliperidone 6 mg tablet,extended 6 mg PO DAILY 01/15/24 01/17/24 History release 24 hr propranolol 10 mg tablet 10 mg PO BID PRN anxiety 01/15/24 01/17/24 History Allergies Allergies Allergy/AdvReac Type Severity Reaction Status Date / Time No Known Allergies Allergy Verified 01/14/24 22:34 Mental Status Exam Mental Status Exam Narrative: Pt is alert and oriented; behavior is cooperative and calm; dressed in casual attire; mood is described as okay ; eye contact appropriate; Speech is normal rate, volume and not pressured; thought process is organized; Thought content is on discharge; otherwise pertinent to relevant topics and without any delusional content, paranoid ideations or grandiosity; denies SI/HI/VH/AH. Assessment & Plan Assessment & Plan (1) Schizophrenia: Status: Acute Code(s): F20.9 - Schizophrenia, unspecified (2) Cocaine use disorder: Status: Acute Code(s): F14.10 - Cocaine abuse, uncomplicated (3) Stimulant abuse: Status: Acute Code(s): F15.10 - Other stimulant abuse, uncomplicated Plan Patient is a 28-year-old male with history of schizophrenia, cocaine use disorder and stimulant use disorder who was brought in by EMS due to being found running outside naked secondary to medication noncompliance and cocaine use. 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 No changes have occurred unless specified. If the History and Physical was not performed prior to admission, the Hospitalist's service will be consulted for completing the admission physical. Time Spent With Patient Time: Total time managing care of this patient today _60___ minutes.
[2024-01-17 20:00] VITALS: BP 131/57; PULSE 63; RESP 18; TEMP 37; O2SAT 96
[2024-01-18 08:07] VITALS: BP 103/53; PULSE 65; TEMP 36.8; O2SAT 97
[2024-01-18] MEDS: ARIPiprazole 20 MG TABLET PO (08:31)
[2024-01-18] MEDS: Benztropine Mesylate 1 MG TABLET PO (08:31)
[2024-01-18] MEDS: Divalproex Sodium 500 MG TABLET.DR 1000 MG PO (08:31)
[2024-01-18] MEDS: Paliperidone ER 6 MG TAB.ER.24 PO (08:31)
[2024-01-18] MEDS: Divalproex Sodium Sprinkles 125 MG CAP.DR.SPR PO (10:06)
--- NOTE | 2024-01-18 14:30 | PC.NURSE ---
01/18/24 retracted 3day, 01/18/24 Signed a 3day up on 01/24/24.
--- NOTE | 2024-01-18 15:30 | HO.PSYCHPN ---
Subjective Subjective Date of Service: 01/18/24 Reason For Visit: psychosis Subjective Notes: 3 Day Interim History: Reviewed with Dr. Castro. Patient retracted 3 day notice and signed another 3 day notice which is due on 01/24/2024. Patient reports feeling okay; discussed possibility of receiving FOX. carry in worker to set up provider meeting along with pact team and mother; patient aware. Patient denies SI/HI/VH/AH. Medication Compliance: Yes Side effects from medications: No Attending Groups: No Review of Systems Constitutional: Reports as per HPI Eyes: Reports as per HPI Reports as per HPI Cardiovascular: Reports as per HPI Respiratory: Reports as per HPI Gastrointestinal: Reports as per HPI Genitourinary: Reports as per HPI Musculoskeletal: Reports as per HPI Skin/Breast: Reports as per HPI Reports as per HPI Psychiatric: Reports as per HPI Endocrine: Reports as per HPI Hematologic/Lymphatic: Reports as per HPI Allergic/Immunologic: Reports as per HPI Mental Status Exam Mental Status Exam Narrative: Pt is alert and oriented; behavior is cooperative and calm; dressed in casual attire; mood is described as okay ; eye contact appropriate; Speech is normal rate, volume and not pressured; thought process is organized; Thought content is on discharge; otherwise pertinent to relevant topics and without any delusional content, paranoid ideations or grandiosity; denies SI/HI/VH/AH. Diagnostics Vital Signs (24Hr): Vital Signs - 24 hr 01/17/24 20:00 01/18/24 08:07 Temperature 98.6 F 98.3 F Pulse Rate 63 65 Respiratory Rate 18 Blood Pressure 131/57 L 103/53 L Pulse Oximetry 96 97 Oxygen Delivery Method Room Air Room Air BMI result Body Mass Index 29.3 Labs 01/14/24 23:13 01/14/24 23:13 Labs: Laboratory Results - last 48 hr 01/17/24 09:46 Estimat Average Glucose 91 Hemoglobin A1c % 4.8 Triglycerides 115 Cholesterol 187 LDL Cholesterol, Calc 124 H HDL Cholesterol 40 L Medications Medications Current Medications Acetaminophen (Acetaminophen 325 Mg Tablet) 650 mg PO Q6H PRN PRN Reason: Headache/Pain Mild Scale (1-3) Al Hydroxide/Mg Hydroxide (Magnesium Hydrox/Alum Hydrox 30 Ml Oral.Susp) 30 ml PO Q6H PRN PRN Reason: Heartburn/Nausea Aripiprazole (Aripiprazole 20 Mg Tablet) 20 mg PO DAILY [facility] Last Admin: 01/18/24 08:31 Dose: 20 mg Benztropine Mesylate (Benztropine Mesylate 1 Mg Tablet) 1 mg PO DAILY [facility] Last Admin: 01/18/24 08:31 Dose: 1 mg Divalproex Sodium (Divalproex Sodium 500 Mg Tablet.Dr) 1,000 mg PO DAILY [facility] Last Admin: 01/18/24 08:31 Dose: 1,000 mg Divalproex Sodium (Divalproex Sodium Sprinkles 125 Mg Cap.Dr.Spr) 125 mg PO DAILY [facility] Last Admin: 01/18/24 10:06 Dose: 125 mg Hydroxyzine HCl (Hydroxyzine Hcl 25 Mg Tablet) 25 mg PO Q6H PRN PRN Reason: Anxiety Magnesium Hydroxide (Milk Of Magnesia 30 Ml Oral.Susp) 30 ml PO DAILY PRN PRN Reason: Constipation Nicotine (Nicotine 21 Mg Patch.Td24) 21 mg TRANSDERMA DAILY PRN PRN Reason: smoking cessation Nicotine Polacrilex (Nicotine Polacrilex 2 Mg Gum) 4 mg BUCCAL Q2H PRN PRN Reason: Nicotine Cravings Olanzapine (Olanzapine 5 Mg Tablet) 5 mg PO TID PRN PRN Reason: agitation Paliperidone (Paliperidone Er 6 Mg Tab.Er.24) 6 mg PO DAILY [facility] Last Admin: 01/18/24 08:31 Dose: 6 mg Propranolol HCl (Propranolol Hcl 10 Mg Tablet) 10 mg PO BID PRN; Protocol PRN Reason: anxiety Trazodone HCl (Trazodone Hcl 50 Mg Tablet) 50 mg PO BEDTIME MRX1 PRN PRN Reason: Insomnia Allergies Allergies Allergy/AdvReac Type Severity Reaction Status Date / Time No Known Allergies Allergy Verified 01/14/24 22:34 Assessment & Plan Assessment & Plan (1) Schizophrenia: Status: Acute Code(s): F20.9 - Schizophrenia, unspecified (2) Cocaine use disorder: Status: Acute Code(s): F14.10 - Cocaine abuse, uncomplicated (3) Stimulant abuse: Status: Acute Code(s): F15.10 - Other stimulant abuse, uncomplicated Plan Patient is a 28-year-old male with history of schizophrenia, cocaine use disorder and stimulant use disorder who was brought in by EMS due to being found running outside naked secondary to medication noncompliance and cocaine use. 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 Patient reports feeling okay; discussed possibility of receiving FOX. carry in worker to set up provider meeting along with pact team and mother; patient aware. Patient denies SI/HI/VH/AH. Continue current tx plan. Patient educated on: diagnosis, medication risk/benefits and therapeutic strategies Reason for continued inpatient stay Substantial Risk for: med/psych decompensation Time Spent With Patient Time: Total time managing care of this patient today _20___ minutes.
[2024-01-18 20:00] VITALS: BP 102/51; PULSE 73; RESP 14; O2SAT 96
[2024-01-19 07:00] VITALS: BMI 28.3
[2024-01-19 08:00] VITALS: BP 143/72; PULSE 104; RESP 18; TEMP 36.9; O2SAT 99
[2024-01-19] MEDS: Paliperidone ER 6 MG TAB.ER.24 PO (08:11)
[2024-01-19] MEDS: Benztropine Mesylate 1 MG TABLET PO (08:11)
[2024-01-19] MEDS: ARIPiprazole 20 MG TABLET PO (08:11)
[2024-01-19] MEDS: Divalproex Sodium 500 MG TABLET.DR 1000 MG PO (08:11)
[2024-01-19] MEDS: Divalproex Sodium Sprinkles 125 MG CAP.DR.SPR PO (08:11)
--- NOTE | 2024-01-19 12:27 | P.PNPSI_ITS ---
Subjective Subjective Date of Service: 01/19/24 Reason For Visit: psychosis Subjective Notes: 3 Day Interim History: Reviewed with Dr. Castro. Patient reports feeling okay ; he is focused on discharging home. Pt agreed to FOX; will receive Abilify Maintena 400mg IM on 01/21/24; pt aware. Patient denies SI/HI/VH/AH. 3 day up on 01/24/24. Medication Compliance: Yes Side effects from medications: No Attending Groups: Intermittent Review of Systems Constitutional: Reports as per HPI Eyes: Reports as per HPI Reports as per HPI Cardiovascular: Reports as per HPI Respiratory: Reports as per HPI Gastrointestinal: Reports as per HPI Genitourinary: Reports as per HPI Musculoskeletal: Reports as per HPI Skin/Breast: Reports as per HPI Reports as per HPI Psychiatric: Reports as per HPI Endocrine: Reports as per HPI Hematologic/Lymphatic: Reports as per HPI Allergic/Immunologic: Reports as per HPI Mental Status Exam Mental Status Exam Narrative: Pt is alert and oriented; behavior is cooperative and calm; dressed in casual attire; mood is described as okay ; eye contact appropriate; Speech is normal rate, volume and not pressured; thought process is organized; Thought content is on discharge; otherwise pertinent to relevant topics and without any delusional content, paranoid ideations or grandiosity; denies SI/HI/VH/AH. Diagnostics Vital Signs (24Hr): Vital Signs - 24 hr 01/18/24 20:00 01/19/24 08:00 Temperature 98.5 F Pulse Rate 73 104 H Respiratory Rate 14 18 Blood Pressure 102/51 L 143/72 H Pulse Oximetry 96 99 Oxygen Delivery Method Room Air Room Air BMI result Body Mass Index 29.3 Labs 01/14/24 23:13 01/14/24 23:13 Medications Medications Current Medications Acetaminophen (Acetaminophen 325 Mg Tablet) 650 mg PO Q6H PRN PRN Reason: Headache/Pain Mild Scale (1-3) Al Hydroxide/Mg Hydroxide (Magnesium Hydrox/Alum Hydrox 30 Ml Oral.Susp) 30 ml PO Q6H PRN PRN Reason: Heartburn/Nausea Aripiprazole (Aripiprazole 20 Mg Tablet) 20 mg PO DAILY [facility] Last Admin: 01/19/24 08:11 Dose: 20 mg Benztropine Mesylate (Benztropine Mesylate 1 Mg Tablet) 1 mg PO DAILY [facility] Last Admin: 01/19/24 08:11 Dose: 1 mg Divalproex Sodium (Divalproex Sodium 500 Mg Tablet.Dr) 1,000 mg PO DAILY [facility] Last Admin: 01/19/24 08:11 Dose: 1,000 mg Divalproex Sodium (Divalproex Sodium Sprinkles 125 Mg Cap.Dr.Spr) 125 mg PO DAILY [facility] Last Admin: 01/19/24 08:11 Dose: 125 mg Hydroxyzine HCl (Hydroxyzine Hcl 25 Mg Tablet) 25 mg PO Q6H PRN PRN Reason: Anxiety Magnesium Hydroxide (Milk Of Magnesia 30 Ml Oral.Susp) 30 ml PO DAILY PRN PRN Reason: Constipation Nicotine (Nicotine 21 Mg Patch.Td24) 21 mg TRANSDERMA DAILY PRN PRN Reason: smoking cessation Nicotine Polacrilex (Nicotine Polacrilex 2 Mg Gum) 4 mg BUCCAL Q2H PRN PRN Reason: Nicotine Cravings Olanzapine (Olanzapine 5 Mg Tablet) 5 mg PO TID PRN PRN Reason: agitation Paliperidone (Paliperidone Er 6 Mg Tab.Er.24) 6 mg PO DAILY [facility] Last Admin: 01/19/24 08:11 Dose: 6 mg Propranolol HCl (Propranolol Hcl 10 Mg Tablet) 10 mg PO BID PRN; Protocol PRN Reason: anxiety Trazodone HCl (Trazodone Hcl 50 Mg Tablet) 50 mg PO BEDTIME MRX1 PRN PRN Reason: Insomnia Allergies Allergies Allergy/AdvReac Type Severity Reaction Status Date / Time No Known Allergies Allergy Verified 01/14/24 22:34 Assessment & Plan Assessment & Plan (1) Schizophrenia: Status: Acute Code(s): F20.9 - Schizophrenia, unspecified (2) Cocaine use disorder: Status: Acute Code(s): F14.10 - Cocaine abuse, uncomplicated (3) Stimulant abuse: Status: Acute Code(s): F15.10 - Other stimulant abuse, uncomplicated Plan Patient is a 28-year-old male with history of schizophrenia, cocaine use disorder and stimulant use disorder who was brought in by EMS due to being found running outside naked secondary to medication noncompliance and cocaine use. 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 Patient reports feeling okay; discussed possibility of receiving FOX. community placement worker to set up provider meeting along with pact team and mother; patient aware. Patient denies SI/HI/VH/AH. Continue current tx plan. 01/18: Patient reports feeling okay ; he is focused on discharging home. Pt agreed to FOX; will receive Abilify Maintena 400mg IM on 01/21/24; pt aware. Patient denies SI/HI/VH/AH. 3 day up on 01/24/24. Patient educated on: diagnosis and medication risk/benefits Reason for continued inpatient stay Substantial Risk for: med/psych decompensation Time Spent With Patient Time: Total time managing care of this patient today _20___ minutes.
[2024-01-19] MEDS: Flu Vacc TS2024-25(6mos up)/PF 0.5 ML SYRINGE IM (12:47)
[2024-01-19 20:00] VITALS: BP 171/78; PULSE 104; RESP 18; TEMP 36.6; O2SAT 97
[2024-01-20 08:33] VITALS: BP 164/75; PULSE 109; TEMP 36.7; O2SAT 97
[2024-01-20] MEDS: Paliperidone ER 6 MG TAB.ER.24 PO (09:33)
[2024-01-20] MEDS: Divalproex Sodium Sprinkles 125 MG CAP.DR.SPR PO (09:33)
[2024-01-20] MEDS: ARIPiprazole 20 MG TABLET PO (09:33)
[2024-01-20] MEDS: Divalproex Sodium 500 MG TABLET.DR 1000 MG PO (09:33)
[2024-01-20] MEDS: Benztropine Mesylate 1 MG TABLET PO (09:33)
[2024-01-20 09:43] LABS: Ammonia 44 umol/L (13-55)
[2024-01-20 09:52] LABS: Valproate 40.3 mcg/mL (50.0-100.0)
[2024-01-20 09:55] LABS: Alanine Aminotransferase 25 U/L (0-40); Albumin Level 4.6 g/dL (3.5-5.0); Alkaline Phosphatase 64 U/L (39-117); Anion Gap 14 (12-20); Aspartate Amino Transferase 24 U/L (5-37); Bilirubin Direct 0.1 mg/dL (0.0-0.5); Bilirubin Total 0.3 mg/dL (0.0-1.0); Carbon Dioxide 30 mmol/L (22-29); Chloride 101 mmol/L (96-108); Potassium 4.2 mmol/L (3.3-5.1); Sodium 141 mmol/L (135-145); Total Protein 7.5 g/dL (6.5-8.0)
--- NOTE | 2024-01-20 12:53 | P.PNPSI_ITS ---
Subjective Subjective Date of Service: 01/20/24 Reason For Visit: psychosis Subjective Notes: 3 Day Interim History: Reviewed with Dr. Castro. Active on unit. Patient reports feeling good ; focused on discharging home. denies any issues. Pt agreed to FOX; will receive Abilify Maintena 400mg IM on 01/21/24; pt aware. denies SI/HI/VH/AH. 3 day up on 01/24/24. Family meeting scheduled on 01/24/24 per social work. Medication Compliance: Yes Side effects from medications: No Review of Systems Constitutional: Reports as per HPI Eyes: Reports as per HPI Reports as per HPI Cardiovascular: Reports as per HPI Respiratory: Reports as per HPI Gastrointestinal: Reports as per HPI Genitourinary: Reports as per HPI Musculoskeletal: Reports as per HPI Skin/Breast: Reports as per HPI Reports as per HPI Psychiatric: Reports as per HPI Endocrine: Reports as per HPI Hematologic/Lymphatic: Reports as per HPI Allergic/Immunologic: Reports as per HPI Mental Status Exam Mental Status Exam Narrative: Pt is alert and oriented; behavior is cooperative and calm; dressed in casual attire; mood is described as good ; eye contact appropriate; Speech is normal rate, volume and not pressured; thought process is organized; Thought content is on discharge; otherwise pertinent to relevant topics and without any delusional content, paranoid ideations or grandiosity; denies SI/HI/VH/AH. Diagnostics Vital Signs (24Hr): Vital Signs - 24 hr 01/19/24 20:00 01/20/24 08:33 Temperature 97.8 F 98.1 F Pulse Rate 104 H 109 H Respiratory Rate 18 Blood Pressure 171/78 H 164/75 H Pulse Oximetry 97 97 Oxygen Delivery Method Room Air Room Air BMI result Body Mass Index 28.3 Labs 01/14/24 23:13 01/20/24 09:01 Labs: Laboratory Results - last 48 hr 01/20/24 09:01 Sodium 141 Potassium 4.2 Chloride 101 Carbon Dioxide 30 H Anion Gap 14 Total Bilirubin 0.3 Direct Bilirubin 0.1 AST 24 ALT 25 Alkaline Phosphatase 64 Ammonia 44 Total Protein 7.5 Albumin 4.6 Valproic Acid 40.3 L Medications Medications Current Medications Acetaminophen (Acetaminophen 325 Mg Tablet) 650 mg PO Q6H PRN PRN Reason: Headache/Pain Mild Scale (1-3) Al Hydroxide/Mg Hydroxide (Magnesium Hydrox/Alum Hydrox 30 Ml Oral.Susp) 30 ml PO Q6H PRN PRN Reason: Heartburn/Nausea Aripiprazole (Aripiprazole 20 Mg Tablet) 20 mg PO DAILY [facility] Last Admin: 01/20/24 09:33 Dose: 20 mg Aripiprazole (Aripiprazole Er 400 Mg Suser.Syr) 400 mg IM Q28D [facility] Benztropine Mesylate (Benztropine Mesylate 1 Mg Tablet) 1 mg PO DAILY [facility] Last Admin: 01/20/24 09:33 Dose: 1 mg Divalproex Sodium (Divalproex Sodium 500 Mg Tablet.Dr) 1,000 mg PO DAILY [facility] Last Admin: 01/20/24 09:33 Dose: 1,000 mg Divalproex Sodium (Divalproex Sodium Sprinkles 125 Mg Cap.Dr.Spr) 125 mg PO DAILY [facility] Last Admin: 01/20/24 09:33 Dose: 125 mg Hydroxyzine HCl (Hydroxyzine Hcl 25 Mg Tablet) 25 mg PO Q6H PRN PRN Reason: Anxiety Magnesium Hydroxide (Milk Of Magnesia 30 Ml Oral.Susp) 30 ml PO DAILY PRN PRN Reason: Constipation Nicotine (Nicotine 21 Mg Patch.Td24) 21 mg TRANSDERMA DAILY PRN PRN Reason: smoking cessation Nicotine Polacrilex (Nicotine Polacrilex 2 Mg Gum) 4 mg BUCCAL Q2H PRN PRN Reason: Nicotine Cravings Olanzapine (Olanzapine 5 Mg Tablet) 5 mg PO TID PRN PRN Reason: agitation Paliperidone (Paliperidone Er 6 Mg Tab.Er.24) 6 mg PO DAILY [facility] Last Admin: 01/20/24 09:33 Dose: 6 mg Propranolol HCl (Propranolol Hcl 10 Mg Tablet) 10 mg PO BID PRN; Protocol PRN Reason: anxiety Trazodone HCl (Trazodone Hcl 50 Mg Tablet) 50 mg PO BEDTIME MRX1 PRN PRN Reason: Insomnia Allergies Allergies Allergy/AdvReac Type Severity Reaction Status Date / Time No Known Allergies Allergy Verified 01/14/24 22:34 Assessment & Plan Assessment & Plan (1) Schizophrenia: Status: Acute Code(s): F20.9 - Schizophrenia, unspecified (2) Cocaine use disorder: Status: Acute Code(s): F14.10 - Cocaine abuse, uncomplicated (3) Stimulant abuse: Status: Acute Code(s): F15.10 - Other stimulant abuse, uncomplicated Plan Patient is a 28-year-old male with history of schizophrenia, cocaine use disorder and stimulant use disorder who was brought in by EMS due to being found running outside naked secondary to medication noncompliance and cocaine use. 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 technology coach Discharge planning 01/17: Patient retracted 3 day notice and signed another 3 day notice which is due on 01/24/2024. Patient reports feeling okay; discussed possibility of receiving FOX. plant care worker to set up provider meeting along with pact team and mother; patient aware. Patient denies SI/HI/VH/AH. Continue current tx plan. 01/18: Patient reports feeling okay ; he is focused on discharging home. Pt agreed to FOX; will receive Abilify Maintena 400mg IM on 01/21/24; pt aware. Patient denies SI/HI/VH/AH. 3 day up on 01/24/24. 01/19: Active on unit. Patient reports feeling good ; focused on discharging home. denies any issues. Pt agreed to FOX; will receive Abilify Maintena 400mg IM on 01/21/24; pt aware. denies SI/HI/VH/AH. 3 day up on 01/24/24. Family meeting scheduled on 01/24/24 per social work. Patient educated on: diagnosis and medication risk/benefits Reason for continued inpatient stay Substantial Risk for: med/psych decompensation Time Spent With Patient Time: Total time managing care of this patient today _20___ minutes.
[2024-01-20 14:09] VITALS: BP 115/61; PULSE 92; TEMP 37; O2SAT 98
[2024-01-21 08:00] VITALS: BP 109/56; PULSE 70; RESP 18; TEMP 36.4; O2SAT 95
[2024-01-21] MEDS: Divalproex Sodium Sprinkles 125 MG CAP.DR.SPR PO (08:20)
[2024-01-21] MEDS: Divalproex Sodium 500 MG TABLET.DR 1000 MG PO (08:20)
[2024-01-21] MEDS: ARIPiprazole 20 MG TABLET PO (08:21)
[2024-01-21] MEDS: Benztropine Mesylate 1 MG TABLET PO (08:21)
[2024-01-21] MEDS: Paliperidone ER 6 MG TAB.ER.24 PO (08:21)
[2024-01-21] MEDS: ARIPiprazole ER 400 MG SUSER.SYR IM (09:55)
--- NOTE | 2024-01-21 11:10 | HO.PSYCHPN ---
Subjective Subjective Date of Service: 01/21/24 Reason For Visit: psychosis Subjective Notes: Conditional Voluntary and 3 Day Interim History: Patient was seen and discussed in rounds today. Records and plans were reviewed. He continues to have a 3 day notice in which is up on 01/21. Denies any symptoms. Continues to have some inappropriate affect/laughter. No complaints or side effects. No changes were made today Review of Systems Review of Systems Yes all other systems are reviewed and are negative Mental Status Exam Mental Status Exam Narrative: In today's visit he is alert, oriented and pleasant. Normal speech. Moderate eye contact. Affect is appropriate and constricted. Reported to have some inappropriate laughter but not observed today. No SI. No AVH. Cognitively could not be assessed. Judgment appears to be intact Diagnostics Vital Signs (24Hr): Vital Signs - 24 hr 01/20/24 14:09 01/21/24 08:00 Temperature 98.6 F 97.5 F Pulse Rate 92 70 Respiratory Rate 18 Blood Pressure 115/61 109/56 L Pulse Oximetry 98 95 Oxygen Delivery Method Room Air Room Air BMI result Body Mass Index 28.3 Labs 01/14/24 23:13 01/20/24 09:01 Labs: Laboratory Results - last 48 hr 01/20/24 09:01 Sodium 141 Potassium 4.2 Chloride 101 Carbon Dioxide 30 H Anion Gap 14 Total Bilirubin 0.3 Direct Bilirubin 0.1 AST 24 ALT 25 Alkaline Phosphatase 64 Ammonia 44 Total Protein 7.5 Albumin 4.6 Valproic Acid 40.3 L Medications Medications Current Medications Acetaminophen (Acetaminophen 325 Mg Tablet) 650 mg PO Q6H PRN PRN Reason: Headache/Pain Mild Scale (1-3) Al Hydroxide/Mg Hydroxide (Magnesium Hydrox/Alum Hydrox 30 Ml Oral.Susp) 30 ml PO Q6H PRN PRN Reason: Heartburn/Nausea Aripiprazole (Aripiprazole 20 Mg Tablet) 20 mg PO DAILY [facility] Last Admin: 01/21/24 08:21 Dose: 20 mg Aripiprazole (Aripiprazole Er 400 Mg Suser.Syr) 400 mg IM Q28D [facility] Last Admin: 01/21/24 09:55 Dose: 400 mg Benztropine Mesylate (Benztropine Mesylate 1 Mg Tablet) 1 mg PO DAILY [facility] Last Admin: 01/21/24 08:21 Dose: 1 mg Divalproex Sodium (Divalproex Sodium 500 Mg Tablet.) 1,000 mg PO DAILY [facility] Last Admin: 01/21/24 08:20 Dose: 1,000 mg Divalproex Sodium (Divalproex Sodium Sprinkles 125 Mg Cap.Spr) 125 mg PO DAILY [facility] Last Admin: 01/21/24 08:20 Dose: 125 mg Hydroxyzine HCl (Hydroxyzine Hcl 25 Mg Tablet) 25 mg PO Q6H PRN PRN Reason: Anxiety Magnesium Hydroxide (Milk Of Magnesia 30 Ml Oral.Susp) 30 ml PO DAILY PRN PRN Reason: Constipation Nicotine (Nicotine 21 Mg Patch.Td24) 21 mg TRANSDERMA DAILY PRN PRN Reason: smoking cessation Nicotine Polacrilex (Nicotine Polacrilex 2 Mg Gum) 4 mg BUCCAL Q2H PRN PRN Reason: Nicotine Cravings Olanzapine (Olanzapine 5 Mg Tablet) 5 mg PO TID PRN PRN Reason: agitation Paliperidone (Paliperidone Er 6 Mg Tab.Er.24) 6 mg PO DAILY [facility] Last Admin: 01/21/24 08:21 Dose: 6 mg Propranolol HCl (Propranolol Hcl 10 Mg Tablet) 10 mg PO BID PRN; Protocol PRN Reason: anxiety Trazodone HCl (Trazodone Hcl 50 Mg Tablet) 50 mg PO BEDTIME MRX1 PRN PRN Reason: Insomnia Allergies Allergies Allergy/AdvReac Type Severity Reaction Status Date / Time No Known Allergies Allergy Verified 01/14/24 22:34 Assessment & Plan Assessment & Plan (1) Schizophrenia: Status: Acute Code(s): F20.9 - Schizophrenia, unspecified (2) Cocaine use disorder: Status: Acute Code(s): F14.10 - Cocaine abuse, uncomplicated (3) Stimulant abuse: Status: Acute Code(s): F15.10 - Other stimulant abuse, uncomplicated Plan Patient is a 28-year-old male with history of schizophrenia, cocaine use disorder and stimulant use disorder who was brought in by EMS due to being found running outside naked secondary to medication noncompliance and cocaine use. 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 Patient reports feeling okay; discussed possibility of receiving FOX. box worker to set up provider meeting along with pact team and mother; patient aware. Patient denies SI/HI/VH/AH. Continue current tx plan. 01/18: Patient reports feeling okay ; he is focused on discharging home. Pt agreed to FOX; will receive Abilify Maintena 400mg IM on 01/21/24; pt aware. Patient denies SI/HI/VH/AH. 3 day up on 01/24/24. 01/19: Active on unit. Patient reports feeling good ; focused on discharging home. denies any issues. Pt agreed to FOX; will receive Abilify Maintena 400mg IM on 01/21/24; pt aware. denies SI/HI/VH/AH. 3 day up on 01/24/24. Family meeting scheduled on 01/24/24 per social work. Reason for continued inpatient stay Substantial Risk for: rapid decompensation Time Spent With Patient Time: Total time managing care of this patient today ____ minutes.
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
[2024-01-21 20:00] VITALS: RESP 16
[2024-01-22] MEDS: Divalproex Sodium Sprinkles 125 MG CAP.DR.SPR PO (08:19)
[2024-01-22] MEDS: Divalproex Sodium 500 MG TABLET.DR 1000 MG PO (08:19)
[2024-01-22] MEDS: Benztropine Mesylate 1 MG TABLET PO (08:20)
[2024-01-22] MEDS: Paliperidone ER 6 MG TAB.ER.24 PO (08:20)
[2024-01-22] MEDS: ARIPiprazole 20 MG TABLET PO (08:20)
[2024-01-22 08:52] VITALS: BP 152/94; PULSE 104; RESP 19; TEMP 36.6; O2SAT 99
--- NOTE | 2024-01-22 10:05 | P.PNPSI_ITS ---
Subjective Subjective Date of Service: 01/22/24 Reason For Visit: psychosis Subjective Notes: Conditional Voluntary and 3 Day Interim History: Patient was seen and discussed in rounds today. Records and plans were reviewed. He has been stable with no behavioral issues reported. Walking up and down the freed. No complaints or side effects. Eating and sleeping adequately. Received his IM Abilify yesterday. No SI. No changes were made today Review of Systems Review of Systems Yes all other systems are reviewed and are negative Mental Status Exam Mental Status Exam Narrative: In today's visit he is alert, oriented and pleasant. Normal speech. Moderate eye contact. Affect is appropriate and constricted. Reported to have some inappropriate laughter but not observed today. No SI. No AVH. Cognitively could not be assessed. Judgment appears to be intact Diagnostics Vital Signs (24Hr): Vital Signs - 24 hr 01/21/24 20:00 01/22/24 08:52 Temperature 97.8 F Pulse Rate 104 H Respiratory Rate 16 19 Blood Pressure 152/94 H Pulse Oximetry 99 Oxygen Delivery Method Room Air BMI result Body Mass Index 28.3 Labs 01/14/24 23:13 01/20/24 09:01 Medications Medications Current Medications Acetaminophen (Acetaminophen 325 Mg Tablet) 650 mg PO Q6H PRN PRN Reason: Headache/Pain Mild Scale (1-3) Al Hydroxide/Mg Hydroxide (Magnesium Hydrox/Alum Hydrox 30 Ml Oral.Susp) 30 ml PO Q6H PRN PRN Reason: Heartburn/Nausea Aripiprazole (Aripiprazole 20 Mg Tablet) 20 mg PO DAILY [facility] Last Admin: 01/22/24 08:20 Dose: 20 mg Aripiprazole (Aripiprazole Er 400 Mg Suser.Syr) 400 mg IM Q28D [facility] Last Admin: 01/21/24 09:55 Dose: 400 mg Benztropine Mesylate (Benztropine Mesylate 1 Mg Tablet) 1 mg PO DAILY [facility] Last Admin: 01/22/24 08:20 Dose: 1 mg Divalproex Sodium (Divalproex Sodium 500 Mg Tablet.Dr) 1,000 mg PO DAILY [facility] Last Admin: 01/22/24 08:19 Dose: 1,000 mg Divalproex Sodium (Divalproex Sodium Sprinkles 125 Mg Cap.) 125 mg PO DAILY [facility] Last Admin: 01/22/24 08:19 Dose: 125 mg Hydroxyzine HCl (Hydroxyzine Hcl 25 Mg Tablet) 25 mg PO Q6H PRN PRN Reason: Anxiety Magnesium Hydroxide (Milk Of Magnesia 30 Ml Oral.Susp) 30 ml PO DAILY PRN PRN Reason: Constipation Nicotine (Nicotine 21 Mg Patch.Td24) 21 mg TRANSDERMA DAILY PRN PRN Reason: smoking cessation Nicotine Polacrilex (Nicotine Polacrilex 2 Mg Gum) 4 mg BUCCAL Q2H PRN PRN Reason: Nicotine Cravings Olanzapine (Olanzapine 5 Mg Tablet) 5 mg PO TID PRN PRN Reason: agitation Paliperidone (Paliperidone Er 6 Mg Tab.Er.24) 6 mg PO DAILY [facility] Last Admin: 01/22/24 08:20 Dose: 6 mg Propranolol HCl (Propranolol Hcl 10 Mg Tablet) 10 mg PO BID PRN; Protocol PRN Reason: anxiety Trazodone HCl (Trazodone Hcl 50 Mg Tablet) 50 mg PO BEDTIME MRX1 PRN PRN Reason: Insomnia Allergies Allergies Allergy/AdvReac Type Severity Reaction Status Date / Time No Known Allergies Allergy Verified 01/14/24 22:34 Assessment & Plan Assessment & Plan (1) Schizophrenia: Status: Acute Code(s): F20.9 - Schizophrenia, unspecified (2) Cocaine use disorder: Status: Acute Code(s): F14.10 - Cocaine abuse, uncomplicated (3) Stimulant abuse: Status: Acute Code(s): F15.10 - Other stimulant abuse, uncomplicated Plan Patient is a 28-year-old male with history of schizophrenia, cocaine use disorder and stimulant use disorder who was brought in by EMS due to being found running outside naked secondary to medication noncompliance and cocaine use. 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 Patient reports feeling okay; discussed possibility of receiving FOX. optical goods worker to set up provider meeting along with pact team and mother; patient aware. Patient denies SI/HI/VH/AH. Continue current tx plan. 01/18: Patient reports feeling okay ; he is focused on discharging home. Pt agreed to FOX; will receive Abilify Maintena 400mg IM on 01/21/24; pt aware. Patient denies SI/HI/VH/AH. 3 day up on 01/24/24. 01/19: Active on unit. Patient reports feeling good ; focused on discharging home. denies any issues. Pt agreed to FOX; will receive Abilify Maintena 400mg IM on 01/21/24; pt aware. denies SI/HI/VH/AH. 3 day up on 01/24/24. Family meeting scheduled on 01/24/24 per social work. 01/21: Continue current regimen and plans Reason for continued inpatient stay Substantial Risk for: rapid decompensation Time Spent With Patient Time: Total time managing care of this patient today ____ minutes.
[2024-01-22 20:00] VITALS: BP 160/77; PULSE 107; RESP 16; TEMP 36.6; O2SAT 98
--- NOTE | 2024-01-23 09:24 | P.PNPSI_ITS ---
Subjective Subjective Date of Service: 01/23/24 Reason For Visit: psychosis Subjective Notes: Conditional Voluntary and 3 Day Interim History: Patient was seen and discussed in rounds today. Records and plans were reviewed. He continues to have self dialogue. No behavioral problems. No complaints or side effects on the long-acting injection on Tuesday. Eating and sleeping adequately. No changes were made today Review of Systems Review of Systems Yes all other systems are reviewed and are negative Mental Status Exam Mental Status Exam Narrative: In today's visit he is alert, oriented and pleasant. Normal speech. Moderate eye contact. Affect is appropriate and constricted. Reported to have some inappropriate laughter but not observed today. No SI. No AVH. Cognitively could not be assessed. Judgment appears to be intact Diagnostics Vital Signs (24Hr): Vital Signs - 24 hr 01/22/24 20:00 Temperature 98 F Pulse Rate 107 H Respiratory Rate 16 Blood Pressure 160/77 H Pulse Oximetry 98 Oxygen Delivery Method Room Air BMI result Body Mass Index 28.3 Labs 01/14/24 23:13 01/20/24 09:01 Medications Medications Current Medications Acetaminophen (Acetaminophen 325 Mg Tablet) 650 mg PO Q6H PRN PRN Reason: Headache/Pain Mild Scale (1-3) Al Hydroxide/Mg Hydroxide (Magnesium Hydrox/Alum Hydrox 30 Ml Oral.Susp) 30 ml PO Q6H PRN PRN Reason: Heartburn/Nausea Aripiprazole (Aripiprazole 20 Mg Tablet) 20 mg PO DAILY [facility] Last Admin: 01/22/24 08:20 Dose: 20 mg Aripiprazole (Aripiprazole Er 400 Mg Suser.Syr) 400 mg IM Q28D [facility] Last Admin: 01/21/24 09:55 Dose: 400 mg Benztropine Mesylate (Benztropine Mesylate 1 Mg Tablet) 1 mg PO DAILY [facility] Last Admin: 01/22/24 08:20 Dose: 1 mg Divalproex Sodium (Divalproex Sodium 500 Mg Tablet.) 1,000 mg PO DAILY [facility] Last Admin: 01/22/24 08:19 Dose: 1,000 mg Divalproex Sodium (Divalproex Sodium Sprinkles 125 Mg Cap.Spr) 125 mg PO DAILY [facility] Last Admin: 01/22/24 08:19 Dose: 125 mg Hydroxyzine HCl (Hydroxyzine Hcl 25 Mg Tablet) 25 mg PO Q6H PRN PRN Reason: Anxiety Magnesium Hydroxide (Milk Of Magnesia 30 Ml Oral.Susp) 30 ml PO DAILY PRN PRN Reason: Constipation Nicotine (Nicotine 21 Mg Patch.Td24) 21 mg TRANSDERMA DAILY PRN PRN Reason: smoking cessation Nicotine Polacrilex (Nicotine Polacrilex 2 Mg Gum) 4 mg BUCCAL Q2H PRN PRN Reason: Nicotine Cravings Olanzapine (Olanzapine 5 Mg Tablet) 5 mg PO TID PRN PRN Reason: agitation Paliperidone (Paliperidone Er 6 Mg Tab.Er.24) 6 mg PO DAILY [facility] Last Admin: 01/22/24 08:20 Dose: 6 mg Propranolol HCl (Propranolol Hcl 10 Mg Tablet) 10 mg PO BID PRN; Protocol PRN Reason: anxiety Trazodone HCl (Trazodone Hcl 50 Mg Tablet) 50 mg PO BEDTIME MRX1 PRN PRN Reason: Insomnia Allergies Allergies Allergy/AdvReac Type Severity Reaction Status Date / Time No Known Allergies Allergy Verified 01/14/24 22:34 Assessment & Plan Assessment & Plan (1) Schizophrenia: Status: Acute Code(s): F20.9 - Schizophrenia, unspecified (2) Cocaine use disorder: Status: Acute Code(s): F14.10 - Cocaine abuse, uncomplicated (3) Stimulant abuse: Status: Acute Code(s): F15.10 - Other stimulant abuse, uncomplicated Plan Patient is a 28-year-old male with history of schizophrenia, cocaine use disorder and stimulant use disorder who was brought in by EMS due to being found running outside naked secondary to medication noncompliance and cocaine use. 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 Patient reports feeling okay; discussed possibility of receiving FOX. residential program worker to set up provider meeting along with pact team and mother; patient aware. Patient denies SI/HI/VH/AH. Continue current tx plan. 01/18: Patient reports feeling okay ; he is focused on discharging home. Pt agreed to FOX; will receive Abilify Maintena 400mg IM on 01/21/24; pt aware. Patient denies SI/HI/VH/AH. 3 day up on 01/24/24. 01/19: Active on unit. Patient reports feeling good ; focused on discharging home. denies any issues. Pt agreed to FOX; will receive Abilify Maintena 400mg IM on 01/21/24; pt aware. denies SI/HI/VH/AH. 3 day up on 01/24/24. Family meeting scheduled on 01/24/24 per social work. 01/21: Continue current regimen and plans 01/22: Continue current plans and regimen Reason for continued inpatient stay Substantial Risk for: med/psych decompensation Time Spent With Patient Time: Total time managing care of this patient today ____ minutes.
[2024-01-23 09:42] VITALS: BP 108/63; PULSE 76; RESP 16; TEMP 36.4; O2SAT 94
[2024-01-23] MEDS: Divalproex Sodium 500 MG TABLET.DR 1000 MG PO (09:42)
[2024-01-23] MEDS: ARIPiprazole 20 MG TABLET PO (09:42)
[2024-01-23] MEDS: Divalproex Sodium Sprinkles 125 MG CAP.DR.SPR PO (09:42)
[2024-01-23] MEDS: Paliperidone ER 6 MG TAB.ER.24 PO (09:42)
[2024-01-23] MEDS: Benztropine Mesylate 1 MG TABLET PO (09:42)
[2024-01-23 20:00] VITALS: BP 108/53; PULSE 81; RESP 16; TEMP 36.8; O2SAT 97
[2024-01-24] MEDS: Magnesium Hydrox/Alum Hydrox 30 ML ORAL.SUSP PO (02:12)
[2024-01-24 08:00] VITALS: BP 155/68; PULSE 106; RESP 18; TEMP 37.1; O2SAT 99
[2024-01-24] MEDS: Divalproex Sodium 500 MG TABLET.DR 1000 MG PO (08:49)
[2024-01-24] MEDS: ARIPiprazole 20 MG TABLET PO (08:50)
[2024-01-24] MEDS: Paliperidone ER 6 MG TAB.ER.24 PO (08:50)
[2024-01-24] MEDS: Benztropine Mesylate 1 MG TABLET PO (08:50)
[2024-01-24] MEDS: Divalproex Sodium Sprinkles 125 MG CAP.DR.SPR PO (08:50)
--- NOTE | 2024-01-24 10:27 | PM.PSYDC ---
DS: Providers Provider Date of Service: 01/24/24 Date of admission: 01/16/24 13:12 Date of discharge: 01/24/24 Primary care physician: Lucy Physician Admitting clinician: Roseanna Rawls Attending physician on admission: Ricki Castro Attending physician on discharge: Ricki Castro Discharging clinician: Roseanna Rawls DS: Diagnosis Discharge Diagnosis (1) Schizophrenia: Status: Acute (2) Cocaine use disorder: Status: Acute (3) Stimulant abuse: Status: Acute DS: Medications Discharge Medications Home Medications: Home Medications ?Medication ?Instructions ?Recorded ?Confirmed aripiprazole 20 mg tablet 20 mg PO DAILY 01/15/24 01/17/24 benztropine 1 mg tablet 1 mg PO DAILY 01/15/24 01/17/24 divalproex 125 mg tablet,delayed 125 mg PO DAILY 01/15/24 01/17/24 release divalproex 500 mg tablet,delayed 1,000 mg PO DAILY 01/15/24 01/17/24 release paliperidone 6 mg tablet,extended 6 mg PO DAILY 01/15/24 01/17/24 release 24 hr propranolol 10 mg tablet 10 mg PO BID PRN anxiety 01/15/24 01/17/24 Mental Status Exam Mental Status Exam Narrative: Pt is alert and oriented; behavior is cooperative and calm; dressed in casual attire; mood is described as good ; eye contact appropriate; Speech is normal rate, volume and not pressured; thought process is organized; Thought content is on discharge; otherwise pertinent to relevant topics and without any delusional content, paranoid ideations or grandiosity; denies SI/HI/VH/AH. Data Data Completed and Pending Completed studies during hospitalization [Text1]: 01/17/24 01/20/24 09:46 09:01 Sodium 141 Potassium 4.2 Chloride 101 Carbon Dioxide 30 H Anion Gap 14 Estimat Average Glucose 91 Hemoglobin A1c % 4.8 Total Bilirubin 0.3 Direct Bilirubin 0.1 AST 24 ALT 25 Alkaline Phosphatase 64 Ammonia 44 Total Protein 7.5 Albumin 4.6 Triglycerides 115 Cholesterol 187 LDL Cholesterol, Calc 124 H HDL Cholesterol 40 L Valproic Acid 40.3 L DS: Summary Hospital Course Hospital Course: Patient is a 28-year-old male with history of schizophrenia, cocaine use disorder and stimulant use disorder who was brought in by EMS due to being found running outside naked secondary to medication noncompliance and cocaine use. Per crisis report, patient was found running outside naked by police. Per family, patient has schizophrenia has been off his medications and has been using cocaine. Pt presented with increased paranoia and believes that he was surrounded by snakes. Patient has a hx of frequent visual hallucinations. Patient also ran over to the neighbor's house naked. He denied SI/HI/AH. Per patient's mother, patient was living on the streets in [place] and was conserved for 10 months on an inpatient unit. Patient's mother is working with [facility] to file [facility] paperwork for guardianship. Patient has outpatient psychiatric providers through [facility]. Patient's mother's filed section 35 and pt received treatment from October 2023- December 13 2023. Utox positive for cocaine and marijuana. Patient denied any other substance use. During admission assessment, patient presents alert and oriented x3. Calm and cooperative. before and after school daycare workerMelisa, present during assessment. Patient reports feeling okay ; patient stated, I'm a normal kid. I take my meds. I got into cocaine and something crazy happened and I started seeing snakes and running naked. I think it was the amount of cocaine that I was taking . Patient reports he is medication compliant. He reports using one bag of cocaine every few days ; he is unable to specify amount. Patient reports smoking marijuana daily. Denies any other substance use. denies hx of SA/SIB. Patient signed 3 day notice stating that he does not feel like he needs to be inpatient in that he just took too much cocaine which made him act in a bizarre manner. Patient denies SI/HI/VH/AH. 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 Patient reports feeling okay; discussed possibility of receiving FOX. before and after school daycare worker to set up provider meeting along with pact team and mother; patient aware. Patient denies SI/HI/VH/AH. Continue current tx plan. Patient reports feeling okay ; he is focused on discharging home. Pt agreed to FOX; will receive Abilify Maintena 400mg IM on 01/21/24; pt aware. Patient denies SI/HI/VH/AH. 3 day up on 01/24/24. Active on unit. Patient reports feeling good ; focused on discharging home. denies any issues. Pt agreed to FOX; will receive Abilify Maintena 400mg IM on 01/21/24; pt aware. denies SI/HI/VH/AH. 3 day up on 01/24/24. Family meeting scheduled on 01/24/24 per social work. T/W and before and after school daycare worker, [place]; met with patient and his mother to review medications and hospital course. Pt reports he plans on following up with outpatient providers. pt denies SI/HI/VH/AH. pt discharged on 3 day notice. Time spent discussing smoking cessation with patient: 3 to 10 minutes Status at Discharge Cognitive/behavioral status at discharge: Patient was interviewed prior to discharge and found to be fully oriented and without SI or HI. Patient has insight and demonstrates good judgment in terms of wanting to pursue treatment. Patient has a safety plan that includes presenting to the closest ER or calling 911 if feeling unsafe. Functional status at discharge: independent ambulation Overall status at discharge: patient is back to baseline Time Spent with Patient Time attestation: Total time managing care of this patient today _30___ minutes. Time spent: Less than 30 minutes Discharge Plan Discharge Anticipated Discharge Date/Time: 01/24/24 11:30 Patient Disposition: Home, Self-Care Discharge Diagnosis: Schizophrenia, Cocaine use d/o, Stimulant abuse Referrals: Abilify Injection: [facility] [Other] - 02/18/24 (Call the pharmacy the morning before you go for the injection to be sure a pharmacist is available at the time you plan to go Stay in contact with your ACCS team, as they will be trying to assist in identifying a plan for the injection moving forward. Until a better plan is in place, keep having the injection sent to [facility] and call them once the injection is sent to let them know the due date and need for pharmacist to give it. ) Candis Barksdale MD [Physician] - 1 Week (The office will call you with an appointment to be seen within 1 week) Discharge Medications: New benztropine 1 mg Tablet 1 mg PO DAILY 30 Days Qty: 30 0RF divalproex 125 mg Capsule, Delayed Rel Sprinkle 125 mg PO DAILY 30 Days Qty: 30 0RF divalproex 500 mg Tablet,Delayed Release (Dr/Ec) 1,000 mg PO DAILY 30 Days Qty: 60 0RF paliperidone [Invega] 6 mg Tablet Extended Release 24 Hr 6 mg PO DAILY 30 Days Qty: 30 0RF aripiprazole [Abilify] 20 mg Tablet 20 mg PO DAILY 30 Days Qty: 30 0RF Abilify Maintena 400 mg Suspension,Extended Rel Syring 400 mg IM Q28D Qty: 1 0RF Rx Instructions: Next IM due on 02/18/2024. Continued propranolol 10 mg tablet 10 mg PO BID PRN (Reason: anxiety) Discontinued divalproex 500 mg tablet,delayed release (DR/EC) 1,000 mg PO DAILY divalproex 125 mg tablet,delayed release (DR/EC) 125 mg PO DAILY benztropine 1 mg tablet 1 mg PO DAILY aripiprazole 20 mg tablet 20 mg PO DAILY paliperidone 6 mg tablet extended release 24 hr 6 mg PO DAILY Discharge Orders: Discharge Order (Routine); Ordered 01/24/24 Ordered By: Roseanna Rawls Diet: Regular diet Activity on Discharge: As tolerated Stand Alone Forms: Patient Portal Discharge page, Community Support Print Language: [place]an Care Plan Goals: Maintain mood and safe behaviors Take medications as prescribed Continue to pursue sobriety Practice coping skills Continue with outpatient providers and reach out to them as needed Health Concerns: Mood stability and behaviors Sobriety Plan of Treatment: Follow up with your PCP, psychiatric provider and other outpatient providers regarding above concerns Take medications as prescribed Assessment: Patient was interviewed prior to discharge and found to be fully oriented and without SI or HI. Patient has insight and demonstrates good judgment in terms of wanting to pursue treatment. Patient has a safety plan that includes presenting to the closest ER or calling 911 if feeling unsafe. Discharge Date/Time: 01/24/24 11:57
[2024-01-24] MEDS: Naloxone HCl Nasal TAKE HOME 4 MG SPRAY 8 MG NOSTRILALT (11:54)
== END 2024-01-24 11:57 | disposition home or self-care (01) | DRG 885 ==
LOC: HO.ED 01-15 04:21 → HO.PM5 01-16 13:35
PROVIDERS: Internal Medicine; Admitting Provider Psychiatry & Neurology Psychiatry; Emergency Provider Emergency Medicine Emergency Medical Services; Responsible Provider Registered Nurse; Visit Provider Psychiatry & Neurology Psychiatry
DX: F20.9 Schizophrenia, unspecified (principal); F17.210 Nicotine dependence, cigarettes, uncomplicated; Z71.6 Tobacco abuse counseling; F14.10 Cocaine abuse, uncomplicated; Z91.199 Patient's noncompliance with other medical treatment and regimen due to unspecified reason; F15.10 Other stimulant abuse, uncomplicated; Z71.51 Drug abuse counseling and surveillance of drug abuser; Z79.899 Other long term (current) drug therapy
CPT/HCPCS: 36415; 80051; 80053; 80061; 80076; 80164; 80307; 81001; 82140; 83036; 85025; 90656; 93005; 99285; J0401; S9485

== ENCOUNTER → 2024-01-16 13:12 | Outpatient (BNV) | payer OTHER, SELFPAY | PROVIDERS: Admitting Provider Psychiatry & Neurology Psychiatry; Emergency Provider Emergency Medicine Emergency Medical Services; Visit Provider Registered Nurse | DX: F20.0 Paranoid schizophrenia (principal); F14.10 Cocaine abuse, uncomplicated; F15.10 Other stimulant abuse, uncomplicated | CPT/HCPCS: 90792; 99231; 99232; 99238 ==

== ENCOUNTER 2024-02-10 11:44 | Emergency (ER) | payer MEDICARE, MEDICAID, SELFPAY ==
[2024-02-10 11:48] VITALS: BP 150/90; PULSE 130; O2SAT 94
--- NOTE | 2024-02-10 12:00 | PC.NURSE ---
Pt. changed over per security. Belongings taken by security and locked in [place].
[2024-02-10 12:08] VITALS: BP 140/69; PULSE 94; RESP 20; TEMP 36.9; O2SAT 97; BMI 25.8
--- NOTE | 2024-02-10 12:45 | PC.NURSE ---
Pt.'s mother, Vidya, would like to leave her number in the chart - [phone] Mother states that pt. was just discharged from .
--- NOTE | 2024-02-10 12:52 | ED.GENADULT ---
HPI - General Adult General Chief complaint: Psychiatric Symptoms Stated complaint: S/P COCAINE USE,PDCUSTODY,CALM+COOPERATIVE PER EMS Time Seen by Provider: 02/10/24 12:52 Source: patient and police Mode of arrival: ambulatory Limitations: no limitations History of Present Illness ED Provider: Blanca Valdes PA-C HPI narrative: Patient is a 28 year old assigned male at with a history of schizophrenia and stimulant abuse presenting to the emergency department today with police after being found knocking on multiple doors. Patient states that he was using cocaine and went knocking on random doors for which the police brought him here. Patient denies any dizziness, lightheadedness, abdominal pain, nausea, vomiting, fever, chills, blurry vision, double vision, loss of vision, chest pain, difficulty breathing, shortness of breath, back pain, night sweats, pain with urination, increased urinary frequency, increased urinary urgency, blood in his urine or stool, syncope or a near syncopal episode, recent trauma or falls, bowel incontinence, bladder incontinence, or any other complaints at this time. Relieving factors: none Exacerbating factors: none Associated symptoms: denies other symptoms Treatments prior to arrival: none Related Data Home Medications ?Medication ?Instructions ?Recorded ?Confirmed propranolol 10 mg tablet 10 mg PO BID PRN anxiety 01/15/24 01/17/24 Previous Rx's ?Medication ?Instructions ?Recorded aripiprazole 20 mg tablet (Abilify) 20 mg PO DAILY 30 days #30 tabs 01/24/24 aripiprazole 400 mg suspension, 400 mg IM Q28D #1 ea 01/24/24 extended rel.intramuscular syringe (Abilifsingh Lovea) benztropine 1 mg tablet 1 mg PO DAILY 30 days #30 tabs 01/24/24 divalproex 125 mg capsule,delayed 125 mg PO DAILY 30 days #30 caps 01/24/24 release sprinkle divalproex 500 mg tablet,delayed 1,000 mg (2 x 500 mg) PO DAILY 30 01/24/24 release days #60 tabs paliperidone 6 mg tablet,extended 6 mg PO DAILY 30 days #30 tabs 01/24/24 release 24 hr (Invega) Allergies Allergy/AdvReac Type Severity Reaction Status Date / Time No Known Allergies Allergy Verified 02/10/24 12:09 Review of Systems Constitutional: Constitutional: Reports no additional constitutional complaints, Denies chills, Denies fever(s) and Denies night sweats Eyes: Eyes: Reports no additional eye complaints, Denies blurry vision, Denies change in vision, Denies diplopia, Denies eye discharge, Denies loss of vision and Denies eye pain ENT: Denies dizziness Cardiovascular: Cardiovascular: Reports no additional cardiovascular complaints, Denies chest pain, Denies lightheadedness, Denies Loss of Consciousness and Denies dyspnea Respiratory: Respiratory: Reports no additional respiratory complaints and Denies dyspnea Gastrointestinal: Gastrointestinal: Reports no additional gastrointestinal complaints, Denies abdominal pain, Denies melena, Denies hematochezia, Denies change in bowel habits and Denies change in stool character Genitourinary: Genitourinary: Reports no additional male genitourinary complaints, Denies hematuria, Denies oliguria, Denies difficulty urinating, Denies dysuria, Denies urinary frequency, Denies urinary hesitancy, Denies urinary incontinence and Denies urinary urgency Musculoskeletal: Musculoskeletal: Reports no additional musculoskeletal complaints, Denies numbness and Denies tingling Neurologic: Denies dizziness, Denies loss of vision, Denies numbness and Denies tingling Psychiatric: Psychiatric: Reports no additional psychiatric complaints Endocrine: Endocrine: Reports no additional endocrine complaints Hematologic/Lymphatic: Hematologic/Lymphatic: Reports no additional hematologic/lymphatic complaints Allergic/Immunologic: Allergic/Immunologic: Reports no additional allergic/immunologic complaints [facility] Past Medical History Attestation statement: The following information was validated with the patient. Source: old records reviewed and nursing notes reviewed Medical History Elevated liver enzymes Adderall use disorder, mild, abuse History of cocaine use History of foot ulcer Schizophrenia Surgical History S/P ear surgery Family History Family History Brother Substance use disorder Bipolar disorder Maternal Grandmother Schizophrenia Paternal Grandmother Mental health disorder Mother Diabetes mellitus Anxiety disorder Maternal Uncle Bipolar disorder Alcoholism Father Essential hypertension Social History Social History Household Members: Family Household Members Other:: mother and her partner Housing: Unknown / Unable to assess Alcohol intake: never Patient Tobacco Use Status: Current everyday Tobacco user Tobacco use type: Cigarette Cigarette Packs Per Day: 1 Cigarettes Per Day: 20.0 e-Cigarette/Vaping Use: Currently Using Substance Use Type: Crack/Cocaine and Marijuana Advance Directives: No Advance Directives Information Provided: Yes Do you have a plan to hurt others: No Plan service: No Current occupational status: unemployed Sexual orientation: Straight/Heterosexual Cognitive needs: No Hearing needs: No Vision needs: Yes Physical Exam ED Vital Signs: Vital Signs - 24 hr 02/10/24 12:08 02/10/24 14:29 Temperature 98.4 F Pulse Rate 94 112 H Respiratory Rate 20 16 Blood Pressure 140/69 H 136/80 Pulse Oximetry 97 98 Oxygen Delivery Method Room Air Room Air BMI result Body Mass Index 25.8 Const General: cooperative, no acute distress, alert and awake Nutritional Appearance: well nourished Orientation/consciousness: patient oriented x3 Limitations: no limitations HENMT Head: Yes normal to inspection and Yes atraumatic Ears: hearing grossly normal bilaterally and external ears normal General nose exam: Normal external nose present, no nasal discharge noted and no epistaxis Face and sinus: Yes normal facial exam, No abrasion and No laceration Mouth: Normal oral and palatal mucosa present, no drooling and no muffled voice Eyes General: appearance normal, both eyes and all related structures Periorbital: periorbital findings normal Eyelids: Yes eyelids normal Conjunctivae: conjunctivae normal Pupils: Equal, round and reactive pupils present EOM: EOMs intact bilaterally Neck Neck: Yes normal visual inspection, Yes full ROM and Yes no lymphadenopathy Chest Chest palpation & inspection: normal inspection of the chest Resp Effort & Inspection: normal respiratory effort and able to speak in complete sentences GI Inspection: Yes normal to inspection Neuro General: patient oriented x3 and moves all extremities Cranial nerves: Yes Equal, round and reactive pupils present Cognition (Neuro): normal cognition Extrem General: Yes normal to inspection, Yes full ROM and Yes capillary refill normal Psych Appearance: grossly normal Mental Status: mental status grossly normal Affect: normal affect Attitude: cooperative Thought process: Normal thought process present Thought content: Normal thought content present Insight: Good insight present (Psych) Medical Decision Making Medical Decision Making MDM Narrative: Patient is a 28 year old assigned male at with a history of schizophrenia and stimulant abuse presenting to the emergency department today with police after being found knocking on multiple doors. Patient's physical exam was unremarkable. Patient's blood work was unremarkable. I explained my physical exam findings as well as all test results to the patient. I answered all questions asked by the patient. Patient was evaluated by CARE team who recommended discharge. I stressed the importance of the patient taking his medication as directed (either prescribed or as the over the counter packaging recommends). I stressed the importance of the patient following up with his primary care provider. I stressed the importance of the patient returning to the emergency department immediately if his symptoms were to worsen or if he were to develop any dizziness, shortness of breath, difficulty breathing, chest pain, blurry vision, loss of vision, nausea, vomiting, abdominal pain, fever, chills, back pain, or any other complaints. Patient verbalized agreement and understanding with this treatment plan and discharge. Differential Diagnosis Differential Diagnoses: The differential diagnosis associated with the presentation includes Stimulant abuse Stimulant use Admission/Observation Consideration of admission/observation: Escalation of care including admission/observation considered Patient would have been admitted to the hospital had his work up had any findings where hospital admission was appropriate and his clinical presentation warranted hospital admission. Consult Healthcare Provider Management of the patient was discussed with: Behavioral Health Provider (spoke to the CARE team as noted in the MDM Rationale portion of this note.) Lab Data [facility] Lab Attestation statement: I reviewed the patient's lab results. My interpretation of these results are in the MDM Rationale portion of this note. 02/10/24 13:22 02/10/24 13:22 Labs: Lab Results 02/10/24 Range/Units 13:22 WBC 9.0 (4.8-10.8) X10*3/uL RBC 4.42 L (4.60-5.80) X10*6/uL Hgb 14.2 (14.0-18.0) g/dl Hct 41.4 L (42.0-52.0) % MCV 93.7 (80.0-98.0) fL MCH 32.1 (27.0-33.0) pg MCHC 34.3 (31.0-36.0) g/dl RDW 12.7 (11.0-16.0) % Plt Count 234 (160-400) X10*3/uL MPV 9.5 (9.4-12.4) fL Immature Gran % (Auto) 0.3 (0.0-0.4) % Neut % (Auto) 84.9 H (45-73) % Lymph % (Auto) 11.1 L (20-40) % [place] % (Auto) 3.0 (2-11) % Eos % (Auto) 0.0 (0-4) % Baso % (Auto) 0.7 (0-2) % Lymph # (Auto) 1.0 L (1.2-4.9) X10*3/uL [place] # (Auto) 0.3 (0.1-1.2) X10*3/uL Eos # (Auto) 0.0 (0.0-0.4) X10*3/uL Baso # (Auto) 0.1 (0.0-0.2) X10*3/uL Abs Immat Gran (auto) 0.03 (0.00-0.03) X10*3/uL Absolute Neuts (auto) 7.6 (2.0-8.3) x10*3/uL Absolute Nucleated RBC 0.000 (0.0-0.012) X10*3/uL Nucleated RBC % (auto) 0.0 (0.0-0.2) /100WBC Sodium 145 (135-145) mmol/L Potassium 4.6 (3.3-5.1) mmol/L Chloride 112 H (96-108) mmol/L Carbon Dioxide 27 (22-29) mmol/L Anion Gap 11 L (12-20) BUN 6 L (9-16) mg/dL Creatinine 0.92 (0.5-1.4) mg/dL Estim Creat Clear Calc 122.3 Estimated GFR > 60 Random Glucose 101 (60-115) mg/dL Calcium 9.7 (8.4-10.2) mg/dL Total Bilirubin 0.1 (0.0-1.0) mg/dL AST 16 (5-37) U/L ALT 16 (0-40) U/L Alkaline Phosphatase 50 (39-117) U/L Total Protein 6.7 (6.5-8.0) g/dL Albumin 4.0 (3.5-5.0) g/dL Urine Color Dark Yellow Urine Appearance Clear Urine pH 6.5 (5.0-9.0) Ur Specific [place] >= 1.030 H (1.005-1.025) Urine Protein Trace (Neg-Trace) mg/dL Urine Glucose (UA) Negative (Negative) mg/dL Urine Ketones Trace (Negative) mg/dL Urine Blood Negative (Negative) Urine Nitrite Negative (Negative) Ur Leukocyte Esterase Negative (Negative) Salicylates < 5.0 L (15-30) mg/dL Urine Opiates Screen Not Detected (Not Detect) Ur Buprenorphine Scrn Not Detected (Not Detect) ng/mL Ur Oxycodone Screen Not Detected (Not Detect) ng/mL Urine Methadone Screen Not Detected (Not Detect) ng/mL Urine Fentanyl Screen Not Detected (Not Detect) Acetaminophen < 3 (<30) mcg/mL Ur Barbiturates Screen Not Detected (Not Detect) Ur Phencyclidine Scrn Not Detected (Not Detect) Ur Amphetamines Screen Not Detected (Not Detect) U Benzodiazepines Scrn Not Detected (Not Detect) Urine Cocaine Screen POSITIVE H (Not Detect) U Marijuana (THC) Screen POSITIVE H (Not Detect) Ethyl Alcohol < 10 mg/dL COVID-19 (GERALDO) Negative (Negative) COVID-19 Clin Com See Note Independent Historian Clinical information obtained from an independent historian. History obtained from or confirmed by: Other (PD provided additional history and confirmed the history provided by the patient.) Discharge Plan Discharge Clinical Impression: Cocaine use disorder, Stimulant abuse Patient Disposition: Home, Self-Care Instructions: Cocaine Abuse (ED) Additional Instructions: Please refrain from the use of stimulants. Follow up with your primary care provider. Return to the emergency department immediately if your symptoms worsen or if you develop any dizziness, shortness of breath, difficulty breathing, chest pain, blurry vision, loss of vision, nausea, vomiting, abdominal pain, fever, chills, back pain, or any other complaints. Prescriptions: No Action propranolol 10 mg tablet 10 mg PO BID PRN (Reason: anxiety) benztropine 1 mg Tablet 1 mg PO DAILY 30 Days Qty: 30 0RF divalproex 125 mg Capsule, Delayed Rel Sprinkle 125 mg PO DAILY 30 Days Qty: 30 0RF divalproex 500 mg Tablet,Delayed Release (Dr/Ec) 1,000 mg PO DAILY 30 Days Qty: 60 0RF paliperidone [Invega] 6 mg Tablet Extended Release 24 Hr 6 mg PO DAILY 30 Days Qty: 30 0RF aripiprazole [Abilify] 20 mg Tablet 20 mg PO DAILY 30 Days Qty: 30 0RF Abilify Maintena 400 mg Suspension,Extended Rel Syring 400 mg IM Q28D Qty: 1 0RF Rx Instructions: Next IM due on 02/18/2024. Referrals: [facility] [place] [facility] [Provider Group] (Call to establish and follow up with a primary care provider. If you already have a primary care provider, please follow up with them.) [facility] [place] [facility], [place]r[facility] [Provider Group] (Call to establish and follow up with a primary care provider. If you already have a primary care provider, please follow up with them.) [facility] [place] [facility],Alysia [Provider Group] (Call to establish and follow up with a primary care provider. If you already have a primary care provider, please follow up with them.) Print Language: Lao
--- NOTE | 2024-02-10 12:54 | ECG_ITS ---
Test Reason : COCAINE USE Blood Pressure : / mmHG Vent. Rate : 119 BPM Atrial Rate : 119 BPM P-R Int : 162 ms QRS Dur : 088 ms QT Int : 320 ms P-R-T Axes : 000 124 133 degrees QTc Int : 450 ms Sinus tachycardia Lateral infarct , age undetermined - could be from lead reversal Abnormal ECG When compared with ECG of 14-JAN-2024 22:54, QRS axis Shifted right Lateral infarct is now Present Referred By: Blanca Valdes Electronically Signed By:LAURA HERNANDEZ
[2024-02-10 13:29] LABS: MANUAL DIFF FLAG NO
[2024-02-10 13:32] LABS: Appearance Urine Clear; Basophils Absolute Auto 0.1 X10*3/uL (0.0-0.2); Basophils Percent Auto 0.7 % (0-2); Color Urine Dark Yellow; Glucose Urine UA Negative (Negative); Hematocrit 41.4 % (42.0-52.0); Hemoglobin 14.2 g/dl (14.0-18.0); Imm Gran Abs Auto 0.03 X10*3/uL (0.00-0.03); Imm Gran Pct Auto 0.3 % (0.0-0.4); Leukocyte Esterase Urine Negative (Negative); Lymphocytes Percent Auto 11.1 % (20-40); Mean Corpuscular HGB Conc 34.3 g/dl (31.0-36.0); Mean Corpuscular Hemoglobin 32.1 pg (27.0-33.0); Mean Corpuscular Volume 93.7 fL (80.0-98.0); Mean Platelet Volume 9.5 fL (9.4-12.4); Monocytes Absolute Auto 0.3 X10*3/uL (0.1-1.2); Neutrophils Absolute Auto 7.6 x10*3/uL (2.0-8.3); Neutrophils Percent Auto 84.9 % (45-73); Nitrite Urine Negative (Negative); PH 6.5 (5.0-9.0); Platelet Count 234 X10*3/uL (160-400); Red Blood Count 4.42 X10*6/uL (4.60-5.80); Red Cell Distribution Width 12.7 % (11.0-16.0); Specific Gravity - Urine >= 1.030 (1.005-1.025); Urine Blood Negative (Negative); Urine Ketones Trace mg/dL (Negative); Urine Protein Trace mg/dL (Neg-Trace)
[2024-02-10 13:43] LABS: Amphetamine Screen Urine Not Detected (Not Detect); Barbiturates, Urine Not Detected (Not Detect); Benzodiazepines Screen Urine Not Detected (Not Detect); Buprenorphine Scr Not Detected (Not Detect); Cannabinoid Screen Urine POSITIVE (Not Detect); Cocaine Screen Urine POSITIVE (Not Detect); Fentanyl, urine Not Detected (Not Detect); Methadone Screen, Urine Not Detected (Not Detect); Opiate Screen Urine Not Detected (Not Detect); Oxycodone Screen Urine Not Detected (Not Detect); Phencyclidine Screen Urine Not Detected (Not Detect)
[2024-02-10 13:50] LABS: COVID-19 Test Negative (Negative); IDNOW Serial# 152EDE1D
[2024-02-10 13:52] LABS: Acetaminophen LAB < 3 mcg/mL (<30); Salicylate < 5.0 mg/dL (15-30)
[2024-02-10 13:58] LABS: Alanine Aminotransferase 16 U/L (0-40); Alkaline Phosphatase 50 U/L (39-117); Anion Gap 11 (12-20); Aspartate Amino Transferase 16 U/L (5-37); Bilirubin Total 0.1 mg/dL (0.0-1.0); Blood Urea Nitrogen 6 mg/dL (9-16); Calcium 9.7 mg/dL (8.4-10.2); Carbon Dioxide 27 mmol/L (22-29); Chloride 112 mmol/L (96-108); Creatinine Clr Calc Pharmacy 122.3; Estimated Glomerular Filt Rate > 60; Ethanol < 10 mg/dL; Glucose Random 101 mg/dL (60-115); Potassium 4.6 mmol/L (3.3-5.1); Sodium 145 mmol/L (135-145); Total Protein 6.7 g/dL (6.5-8.0)
[2024-02-10 14:29] VITALS: BP 136/80; PULSE 112; RESP 16; O2SAT 98
--- NOTE | 2024-02-10 14:30 | MHC.EDTECH ---
Pt changeover on arrival w security present at bedside. Belongings secured in security [facility] locker area
--- NOTE | 2024-02-10 15:09 | MHC.CARE ---
Patient seen by CARE team, does not appear to meet INPT LOC. Discussed with patient's mother who is in agreement, and will pick patient up in the ED around 430pm. Patient himself is aware of this plan.
[2024-02-10 16:34] VITALS: BP 136/67; PULSE 99; RESP 18; TEMP 36.7; O2SAT 96
== END 2024-02-10 16:34 | disposition home or self-care (01) ==
PROVIDERS: Physician Assistant Medical; Emergency Provider Emergency Medicine Emergency Medical Services
DX: F14.10 Cocaine abuse, uncomplicated (principal); F15.10 Other stimulant abuse, uncomplicated; F12.10 Cannabis abuse, uncomplicated; F20.9 Schizophrenia, unspecified; R00.0 Tachycardia, unspecified; Z11.52 Encounter for screening for COVID-19; Z79.899 Other long term (current) drug therapy; Z51.81 Encounter for therapeutic drug level monitoring
CPT/HCPCS: 80053; 80143; 80179; 80307; 81003; 85025; 87635; 93005; 99284; S9485

== ENCOUNTER → 2024-02-10 12:54 | Outpatient (BNV) | payer MEDICARE, MEDICAID, SELFPAY | PROVIDERS: Emergency Provider Emergency Medicine Emergency Medical Services; Visit Provider Internal Medicine | DX: R00.0 Tachycardia, unspecified (principal) | CPT/HCPCS: 93010 ==

== ENCOUNTER 2024-04-04 15:01 | Emergency (ER) | payer MEDICARE, MEDICAID, SELFPAY ==
[2024-04-04 15:22] VITALS: BP 137/73; BP 160/100; PULSE 105; PULSE 94; RESP 14; TEMP 37.5; O2SAT 100; O2SAT 99; BMI 28.7
[2024-04-04 15:31] LABS: MANUAL DIFF FLAG NO
[2024-04-04 15:42] LABS: Basophils Percent Auto 0.6 % (0-2); Eosinophils Percent Auto 0.1 % (0-4); Hematocrit 43.1 % (42.0-52.0); Hemoglobin 14.7 g/dl (14.0-18.0); Imm Gran Abs Auto 0.02 X10*3/uL (0.00-0.03); Imm Gran Pct Auto 0.3 % (0.0-0.4); Lymphocytes Absolute Auto 1.3 X10*3/uL (1.2-4.9); Lymphocytes Percent Auto 18.6 % (20-40); Mean Corpuscular HGB Conc 34.1 g/dl (31.0-36.0); Mean Corpuscular Hemoglobin 31.9 pg (27.0-33.0); Mean Corpuscular Volume 93.5 fL (80.0-98.0); Mean Platelet Volume 9.7 fL (9.4-12.4); Monocytes Absolute Auto 0.4 X10*3/uL (0.1-1.2); Monocytes Percent Auto 6.1 % (2-11); Neutrophils Percent Auto 74.3 % (45-73); Platelet Count 197 X10*3/uL (160-400); Red Blood Count 4.61 X10*6/uL (4.60-5.80); Red Cell Distribution Width 12.3 % (11.0-16.0); White Blood Count 6.7 X10*3/uL (4.8-10.8)
--- NOTE | 2024-04-04 15:49 | ED_ITS ---
HPI - General Adult General Chief complaint: ETOH/Substance Use Stated complaint: Cocaine use. Pt has schizophrenia per ems Time Seen by Provider: 04/04/24 15:10 Source: patient Mode of arrival: ambulatory Limitations: no limitations History of Present Illness ED Provider: RACHID Reyes HPI narrative: 28-year-old male history of cocaine use disorder, alcohol abuse, schizophrenia, stimulant abuse presenting to the emergency department after using cocaine he states he used a little bit, he was angry at his mother he decided to call 911 and he came into the hospital. He reports he really does not want to be here. He is not suicidal, not homicidal. Denies anxiety, depression. Denies visual, auditory and tactile hallucinations. Tells me he is fine and would like to leave. He is not seeking assistance of any type he does not want detox. Denies medical complaints at this time. No fevers, chills, chest pain, shortness of breath, nausea, vomiting, abdominal pain. Related Data Home Medications ?Medication ?Instructions ?Recorded ?Confirmed propranolol 10 mg tablet 10 mg PO BID PRN anxiety 01/15/24 01/17/24 Previous Rx's ?Medication ?Instructions ?Recorded aripiprazole 20 mg tablet (Abilify) 20 mg PO DAILY 30 days #30 tabs 01/24/24 aripiprazole 400 mg suspension, 400 mg IM Q28D #1 ea 01/24/24 extended rel.intramuscular syringe (Abilify Maintena) benztropine 1 mg tablet 1 mg PO DAILY 30 days #30 tabs 01/24/24 divalproex 125 mg capsule,delayed 125 mg PO DAILY 30 days #30 caps 01/24/24 release sprinkle divalproex 500 mg tablet,delayed 1,000 mg (2 x 500 mg) PO DAILY 30 01/24/24 release days #60 tabs paliperidone 6 mg tablet,extended 6 mg PO DAILY 30 days #30 tabs 01/24/24 release 24 hr (Invega) Allergies Allergy/AdvReac Type Severity Reaction Status Date / Time No Known Allergies Allergy Verified 04/04/24 15:24 Review of Systems 2 Review of Systems: Yes all other systems are reviewed and are negative PMFSH Past Medical History Attestation statement: The following information was validated with the patient. Source: old records reviewed and nursing notes reviewed Medical History Elevated liver enzymes Adderall use disorder, mild, abuse History of cocaine use History of foot ulcer Schizophrenia Surgical History S/P ear surgery Family History Family History Brother Substance use disorder Bipolar disorder Maternal Grandmother Schizophrenia Paternal Grandmother Mental health disorder Mother Diabetes mellitus Anxiety disorder Maternal Uncle Bipolar disorder Alcoholism Father Essential hypertension Social History Social History Household Members: Family Household Members Other:: mother and her partner Housing: Unknown / Unable to assess Alcohol intake: never Patient Tobacco Use Status: Current everyday Tobacco user Tobacco use type: Cigarette Cigarette Packs Per Day: 1 Cigarettes Per Day: 20.0 Smoked in Last 30 Days: Yes e-Cigarette/Vaping Use: Currently Using Use of substances other than those prescribed or required for medical reasons: Yes Substance Use Type: Crack/Cocaine Substance Use Frequency: Daily Last Used Substance: Just Prior to Admission Advance Directives: No Advance Directives Information Provided: Yes Do you have a plan to hurt others: No Plan service: No Current occupational status: unemployed Sexual orientation: Straight/Heterosexual Cognitive needs: No Hearing needs: No Vision needs: Yes Physical Exam ED Vital Signs: Vital Signs - 24 hr 04/04/24 15:22 Temperature 99.5 F Pulse Rate 94 Respiratory Rate 14 Blood Pressure 137/73 Pulse Oximetry 100 BMI result Body Mass Index 28.7 vss Appearance: Alert.? Oriented X3.? No acute distress.? Head: Normocephalic, atraumatic, no step-offs or deformities Eyes: Pupils equal, round and reactive to light.? Neck: Normal inspection.? Neck supple.? CVS: Normal heart rate and rhythm.? Pulses normal.? Respiratory: No respiratory distress.? Breath sounds normal.? Abdomen: Soft and nontender.? Skin: Skin warm and dry.? Normal skin color.? Normal skin turgor.? Extremities: No lower extremity edema.? No calf ttp. 5/5 strength to bilateral upper and lower extremities Neuro: Oriented X 3.? No motor deficit.? No sensory deficit. CN 2-12 intact Course Reevaluation(s) Reevaluation #1: CBC unremarkable. Chemistry pending. Urine and urine toxicology not yet obtained. Arch patient not interested in detox. Patient will be discharged home. Time: 15:53 Medical Decision Making Medical Decision Making [facility] Narrative: 28-year-old male presents with cocaine abuse, not SI not HI. No complaints at this time. Physical exam benign. Patient likely here secondary to cocaine use disorder. No signs of overdose, no anxiety, depression, suicidal or homicidal ideation. No medical complaints unlikely metabolic derangements. Patient wants to leave he does not want a workup. He is not on a section 12 and there is no indication for 1 at this time. He is not a threat to self or others. Patient has a right to refuse labs and further treatment. Patient will be discharged home Differential Diagnosis Differential Diagnoses: The differential diagnosis associated with the presentation includes (Patient likely here secondary to cocaine use disorder. No signs of overdose, no anxiety, depression, suicidal or homicidal ideation. No medical complaints unlikely metabolic derangements.) Admission/Observation Consideration of admission/observation: Escalation of care including admission/observation considered (no indication ) Consult Healthcare Provider Management of the patient was discussed with: Behavioral Health Provider (Care team will give him a list of resources for detox.) Lab Data [facility] Lab Attestation statement: I reviewed the patient's lab results. 04/04/24 15:26 04/04/24 15:26 Labs: Lab Results 04/04/24 Range/Units 15:26 WBC 6.7 (4.8-10.8) X10*3/uL RBC 4.61 (4.60-5.80) X10*6/uL Hgb 14.7 (14.0-18.0) g/dl Hct 43.1 (42.0-52.0) % MCV 93.5 (80.0-98.0) fL MCH 31.9 (27.0-33.0) pg MCHC 34.1 (31.0-36.0) g/dl RDW 12.3 (11.0-16.0) % Plt Count 197 (160-400) X10*3/uL MPV 9.7 (9.4-12.4) fL Immature Gran % (Auto) 0.3 (0.0-0.4) % Neut % (Auto) 74.3 H (45-73) % Lymph % (Auto) 18.6 L (20-40) % [place] % (Auto) 6.1 (2-11) % Eos % (Auto) 0.1 (0-4) % Baso % (Auto) 0.6 (0-2) % Lymph # (Auto) 1.3 (1.2-4.9) X10*3/uL [place] # (Auto) 0.4 (0.1-1.2) X10*3/uL Eos # (Auto) 0.0 (0.0-0.4) X10*3/uL Baso # (Auto) 0.0 (0.0-0.2) X10*3/uL Abs Immat Gran (auto) 0.02 (0.00-0.03) X10*3/uL Absolute Neuts (auto) 5.0 (2.0-8.3) x10*3/uL Absolute Nucleated RBC 0.000 (0.0-0.012) X10*3/uL Nucleated RBC % (auto) 0.0 (0.0-0.2) /100WBC Social Determinants Patient?s care significantly limited by Social Determinants of Health including: Other Social Determinant of Health Discharge Plan Discharge Clinical Impression: Schizophrenia, Cocaine use disorder Patient Disposition: Home, Self-Care Instructions: Cocaine Abuse (ED), Schizophrenia (ED) Additional Instructions: Take your medications as prescribed. If you were prescribed antibiotics today, it is important that you take your medication to their entirety, do not skip any doses, do not finish them early. Follow-up with your primary care provider this week. Return to the emergency department with new or worsening symptoms. Such as fevers, chills, chest pain, shortness of breath, nausea, vomiting, dizziness, headache, vision changes, lethargy In case of emergency call 911 Prescriptions: No Action propranolol 10 mg tablet 10 mg PO BID PRN (Reason: anxiety) benztropine 1 mg Tablet 1 mg PO DAILY 30 Days Qty: 30 0RF divalproex 125 mg Capsule, Delayed Rel Sprinkle 125 mg PO DAILY 30 Days Qty: 30 0RF divalproex 500 mg Tablet,Delayed Release (Dr/Ec) 1,000 mg PO DAILY 30 Days Qty: 60 0RF paliperidone [Invega] 6 mg Tablet Extended Release 24 Hr 6 mg PO DAILY 30 Days Qty: 30 0RF aripiprazole [Abilify] 20 mg Tablet 20 mg PO DAILY 30 Days Qty: 30 0RF Abilify Maintena 400 mg Suspension,Extended Rel Syring 400 mg IM Q28D Qty: 1 0RF Rx Instructions: Next IM due on 02/18/2024. Referrals: Physician,None [Primary Care Provider] - 2 days Print Language: Welsh
[2024-04-04 15:54] VITALS: BP 137/73; PULSE 94; RESP 14; TEMP 37.5; O2SAT 100
[2024-04-04 15:54] LABS: Alanine Aminotransferase 28 U/L (0-40); Albumin Level 4.4 g/dL (3.5-5.0); Anion Gap 14 (12-20); Aspartate Amino Transferase 27 U/L (5-37); Bilirubin Total 0.3 mg/dL (0.0-1.0); Blood Urea Nitrogen 13 mg/dL (9-16); Calcium 9.4 mg/dL (8.4-10.2); Carbon Dioxide 29 mmol/L (22-29); Chloride 102 mmol/L (96-108); Creatinine Clr Calc Pharmacy 150.4; Estimated Glomerular Filt Rate > 60; Ethanol < 10 mg/dL; Glucose Random 98 mg/dL (60-115); Magnesium 2.1 mg/dL (1.6-2.6); Potassium 3.9 mmol/L (3.3-5.1); Sodium 141 mmol/L (135-145); Total Protein 7.4 g/dL (6.5-8.0)
[2024-04-04 16:20] LABS: Alkaline Phosphatase 51 U/L (39-117)
== END 2024-04-04 15:55 | disposition home or self-care (01) ==
PROVIDERS: Physician Assistant; Emergency Provider Emergency Medicine
DX: F25.9 Schizoaffective disorder, unspecified (principal); F14.10 Cocaine abuse, uncomplicated; F15.10 Other stimulant abuse, uncomplicated; Z79.899 Other long term (current) drug therapy; Z51.81 Encounter for therapeutic drug level monitoring
CPT/HCPCS: 36415; 80053; 80307; 83735; 85025; 99283

== ENCOUNTER 2024-04-04 22:51 | Inpatient (IN) | payer MEDICARE, OTHER, SELFPAY ==
--- NOTE | 2024-04-04 | ECG_ITS ---
Test Reason : SUBSTANCE USE Blood Pressure : / mmHG Vent. Rate : 102 BPM Atrial Rate : 102 BPM P-R Int : 162 ms QRS Dur : 104 ms QT Int : 376 ms P-R-T Axes : 055 067 048 degrees QTc Int : 490 ms Sinus tachycardia Prominent T waves across precordium- comparable to previous ECG When compared with ECG of 10-FEB-2024 12:57, No significant changes seen If any chest discomfort then consider repeating the ECG Referred By: Peter Francis Electronically Signed By:Juan Giron
[2024-04-04 22:55] VITALS: BP 160/100; PULSE 110; O2SAT 98
[2024-04-04 23:28] VITALS: BP 152/91; PULSE 104; RESP 18; TEMP 36.6; O2SAT 99; BMI 24.4
[2024-04-05 00:42] LABS: Ethanol < 10 mg/dL
[2024-04-05] MEDS: LORazepam 1 MG TABLET 2 MG PO ×2 (01:53→20:45)
--- NOTE | 2024-04-05 02:39 | PC.NURSE ---
patient periodically coming out of room and asking about going home today t/w responds. periodically client appears to be self-stimluating in room.
--- NOTE | 2024-04-05 02:55 | PC.NURSE ---
patient appears to be standing staring out window in the dark
--- NOTE | 2024-04-05 03:05 | ED_ITS ---
HPI - Psych General Chief Complaint: Psychiatric Symptoms Stated Complaint: Cocaine use, schizophrenia Time Seen by Provider: 04/04/24 23:02 Source: patient Mode of arrival: EMS Limitations: no limitations History of Present Illness ED Provider: HPI Narrative: Patient's history of cocaine abuse schizophrenia came here as he was hallucinating seeing snakes in the room asking for Adderall on arrival does not know why he is in the ER patient's mom called ambulance patient was seen here earlier but patient left without workup or seeing any care team Related Data Previous Rx's ?Medication ?Instructions ?Recorded aripiprazole 400 mg suspension, 400 mg IM Q28D #1 ea 01/24/24 extended rel.intramuscular syringe (Abilifsingh Maintena) Allergies Allergy/AdvReac Type Severity Reaction Status Date / Time No Known Allergies Allergy Verified 04/04/24 23:32 Review of Systems Review of Systems: Yes all other systems are reviewed and are negative PMFSH Past Medical History Medical History Elevated liver enzymes Adderall use disorder, mild, abuse History of cocaine use History of foot ulcer Schizophrenia Surgical History S/P ear surgery Family History Family History Brother Substance use disorder Bipolar disorder Maternal Grandmother Schizophrenia Paternal Grandmother Mental health disorder Mother Diabetes mellitus Anxiety disorder Maternal Uncle Bipolar disorder Alcoholism Father Essential hypertension Social History Social History Household Members: Family Household Members Other:: mother and her partner Housing: Unknown / Unable to assess Alcohol intake: never Patient Tobacco Use Status: Current everyday Tobacco user Tobacco use type: Cigarette Cigarette Packs Per Day: 1 Cigarettes Per Day: 20.0 e-Cigarette/Vaping Use: Currently Using Substance Use Type: Crack/Cocaine Advance Directives: No Advance Directives Information Provided: No service: No Current occupational status: unemployed Sexual orientation: Straight/Heterosexual Cognitive needs: No Hearing needs: No Vision needs: Yes Physical Exam Vital Signs: Vital Signs: Last Vital Signs Temp 98.4 F 04/05/24 04:02 Pulse 98 12/26/24 04:02 Resp 18 04/05/24 04:02 BP 113/63 04/05/24 04:02 Pulse Ox 100 04/05/24 04:02 O2 Del Method Room Air 04/05/24 04:02 BMI result Body Mass Index 24.4 Appearance: Alert. Anxious. No acute distress. Eyes: PERRLA, No Nystagmus ENT: Pharynx normal. Oral Mucosa moist Neck: Normal inspection. Neck supple. CVS: Normal heart rate and rhythm. Pulses normal. Respiratory: No respiratory distress. Equal air entry bilateral, no wheezing/rales/rhonchi Abdomen: Soft and nontender. Bowel sounds are present, no mass palpable, no CVA tenderness Skin: Skin warm and dry. Normal skin color. Normal skin turgor. Extremities: No lower extremity edema. No calf tenderness psych: Anxious denies any SI or HI delusional+ Neuro: Oriented X2-3 No motor deficit. No sensory deficit.No cerebellar signs , cranial nerves II-XII intact Medications Administered Discontinued Medications Generic Name Dose Route Start Last Admin Trade Name Bradly PRN Reason Stop Dose Admin Lorazepam 2 mg 04/05/24 01:45 04/05/24 01:53 Lorazepam 1 Mg Tablet PO 04/05/24 01:46 2 mg ONCE ONE Administration Medical Decision Making Medical Decision Making [facility] Narrative: Patient with cocaine abuse disorder, alcohol abuse, schizophrenia comes here for delusional and hallucinations will get care team involved Lab Data [facility] Lab Attestation statement: I reviewed the patient's lab results. Labs: Lab Results 04/05/24 04/05/24 Range/Units 00:23 04:04 Urine Color Dark Yellow Urine Appearance Clear Urine pH 6.5 (5.0-9.0) Ur Specific [place] >= 1.030 H (1.005-1.025) Urine Protein Trace (Neg-Trace) mg/dL Urine Glucose (UA) Negative (Negative) mg/dL Urine Ketones Trace (Negative) mg/dL Urine Blood Negative (Negative) Urine Nitrite Negative (Negative) Ur Leukocyte Esterase Negative (Negative) Urine RBC 0-2 (0-2) /HPF Urine WBC 0-5 (0-5) /HPF Ur Squamous Epith Cells 0-2 (0-2) /HPF Urine Bacteria None Seen (None Seen) Hyaline Casts 0-2 (0-2) /LPF Urine Opiates Screen Not Detected (Not Detect) Ur Buprenorphine Scrn Not Detected (Not Detect) ng/mL Ur Oxycodone Screen Not Detected (Not Detect) ng/mL Urine Methadone Screen Not Detected (Not Detect) ng/mL Urine Fentanyl Screen Not Detected (Not Detect) Ur Barbiturates Screen Not Detected (Not Detect) Ur Phencyclidine Scrn Not Detected (Not Detect) Ur Amphetamines Screen Not Detected (Not Detect) U Benzodiazepines Scrn Not Detected (Not Detect) Urine Cocaine Screen POSITIVE H (Not Detect) U Marijuana (THC) Screen POSITIVE H (Not Detect) Ethyl Alcohol < 10 mg/dL Independent Interpretation I performed an independent interpretation of an: EKG Discharge Plan Discharge Clinical Impression: Schizophrenia, Acute psychosis Patient Disposition: Still a Patient Prescriptions: No Action Abilify Maintena 400 mg Suspension,Extended Rel Syring 400 mg IM Q28D Qty: 1 0RF Rx Instructions: Next IM due on 02/18/2024. Interventions: [place]-Suicide Risk Severity Scale Last Done: 04/05/24 01:14 Print Language: Mohawk
--- NOTE | 2024-04-05 03:25 | PC.NURSE ---
patient continues to disease control inspector dark room
--- NOTE | 2024-04-05 03:45 | PC.NURSE ---
patient redirected to take a seat d/t concerns for client safety, client didnt protest but also didnt comply.
--- NOTE | 2024-04-05 03:59 | PC.NURSE ---
patient asked again about dc, gave urine sample, patient awaits care team assessment
[2024-04-05 04:02] VITALS: BP 113/63; PULSE 98; RESP 18; TEMP 36.9; O2SAT 100
[2024-04-05 04:11] LABS: Appearance Urine Clear; Color Urine Dark Yellow; Glucose Urine UA Negative (Negative); Leukocyte Esterase Urine Negative (Negative); Nitrite Urine Negative (Negative); PH 6.5 (5.0-9.0); Specific Gravity - Urine >= 1.030 (1.005-1.025); Urine Blood Negative (Negative); Urine Ketones Trace mg/dL (Negative); Urine Protein Trace mg/dL (Neg-Trace)
[2024-04-05 04:15] LABS: Bacteria Urine None Seen (None Seen); Hyaline Casts Urine 0-2 /LPF (0-2); RBC Urine 0-2 /HPF (0-2); Squamous Epithelial Cell Urine 0-2 /HPF (0-2); WBC Urine 0-5 /HPF (0-5)
--- NOTE | 2024-04-05 04:20 | PC.NURSE ---
remains standing in room
[2024-04-05 04:24] LABS: Amphetamine Screen Urine Not Detected (Not Detect); Barbiturates, Urine Not Detected (Not Detect); Benzodiazepines Screen Urine Not Detected (Not Detect); Buprenorphine Scr Not Detected (Not Detect); Cannabinoid Screen Urine POSITIVE (Not Detect); Cocaine Screen Urine POSITIVE (Not Detect); Fentanyl, urine Not Detected (Not Detect); Methadone Screen, Urine Not Detected (Not Detect); Opiate Screen Urine Not Detected (Not Detect); Oxycodone Screen Urine Not Detected (Not Detect); Phencyclidine Screen Urine Not Detected (Not Detect)
--- NOTE | 2024-04-05 08:40 | MHC.CARE ---
0800 - Attempted to meet with pt to conduct an assessment. Pt is in bed, laying on his side and does not respond to verbal prompting or to being gently shaken. Pt does appear awake, and staff have stated that he was recently out of his room and on the phone with his Mother.
[2024-04-05 11:02] LABS: MANUAL DIFF FLAG NO
[2024-04-05 11:04] LABS: Basophils Percent Auto 0.6 % (0-2); Eosinophils Absolute Auto 0.2 X10*3/uL (0.0-0.4); Eosinophils Percent Auto 2.3 % (0-4); Hematocrit 40.7 % (42.0-52.0); Hemoglobin 14.1 g/dl (14.0-18.0); Imm Gran Abs Auto 0.01 X10*3/uL (0.00-0.03); Imm Gran Pct Auto 0.2 % (0.0-0.4); Lymphocytes Percent Auto 30.9 % (20-40); Mean Corpuscular HGB Conc 34.6 g/dl (31.0-36.0); Mean Corpuscular Hemoglobin 32.3 pg (27.0-33.0); Mean Corpuscular Volume 93.1 fL (80.0-98.0); Mean Platelet Volume 9.9 fL (9.4-12.4); Monocytes Absolute Auto 0.7 X10*3/uL (0.1-1.2); Monocytes Percent Auto 10.9 % (2-11); Neutrophils Absolute Auto 3.6 x10*3/uL (2.0-8.3); Neutrophils Percent Auto 55.1 % (45-73); Platelet Count 216 X10*3/uL (160-400); Red Blood Count 4.37 X10*6/uL (4.60-5.80); Red Cell Distribution Width 12.3 % (11.0-16.0); White Blood Count 6.5 X10*3/uL (4.8-10.8)
--- NOTE | 2024-04-05 11:08 | MHC.CARE ---
Pt will be an inpatient psychiatric bedsearch
[2024-04-05 11:25] LABS: Alanine Aminotransferase 21 U/L (0-40); Albumin Level 3.9 g/dL (3.5-5.0); Anion Gap 11 (12-20); Aspartate Amino Transferase 26 U/L (5-37); Bilirubin Total 0.4 mg/dL (0.0-1.0); Blood Urea Nitrogen 15 mg/dL (9-16); Calcium 9.2 mg/dL (8.4-10.2); Carbon Dioxide 31 mmol/L (22-29); Chloride 103 mmol/L (96-108); Creatinine Clr Calc Pharmacy 134.9; Estimated Glomerular Filt Rate > 60; Glucose Random 96 mg/dL (60-115); Potassium 3.6 mmol/L (3.3-5.1); Sodium 141 mmol/L (135-145); Total Protein 6.5 g/dL (6.5-8.0)
[2024-04-05 11:58] LABS: Alkaline Phosphatase 48 U/L (39-117)
--- NOTE | 2024-04-05 13:50 | MHC.CARE ---
Desiree Calderon - [facility] cnc lathe programmer Phone - [phone]
[2024-04-05 17:47] VITALS: BP 117/71; PULSE 77; RESP 16; TEMP 36.9; O2SAT 97
--- NOTE | 2024-04-06 03:57 | PC.NURSE ---
late entry- asked ed provider to restart meds, perhaps provider couldnt prioritize this item. asked 2nd prvider for antipsychotic and benzodiazepine (patient had positive response to prior dose)
[2024-04-06 06:20] VITALS: BP 108/55; PULSE 78; RESP 18; TEMP 36.7; O2SAT 98
--- NOTE | 2024-04-06 09:12 | PC.NURSE ---
patient currently sleeping, rr equal/non labored, plan of care ongoing.
[2024-04-06 13:38] VITALS: BMI 28.9
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
[2024-04-06 15:29] VITALS: BP 164/67; PULSE 92; RESP 18; TEMP 36.1; O2SAT 97
--- NOTE | 2024-04-06 17:52 | PC.ADMIT ---
Roberto was admitted to [facility] on a 12B on 04/06/24 at 1325 for treatment of schizophrenia after being medication non-complaint per patient's mothers report. Admission done primarily from crisis assessment due to patient being unwilling to speak to RN. Roberto was brought into the ED via ambulance from his home after using cocaine and reporting VH of snakes on his body and in his room. He was requesting Adderall while in the ED despite not being previously prescribed Adderall. He has a longstanding history of substance use (primarily Cocaine) and taking non-prescribed Adderall. He has been presumably medication non-compliant for approximately 1 month. He has a history of prior [facility] admissions, most recent being in January of 2024 at [facility] on M[facility] and a history of HI towards his mother. Per crisis report, Roberto has a visiting nurse to administer medications through [facility]. Upon initial assessment, Roberto is calm and pleasant, cooperative with skin check and vitals. Skin check unremarkable. His mood is flat and affect is congruent with mood. Roberto reports feeling good and is asking about discharge. He currently denies SI/HI/AVH to RN. Per crisis report, Roberto was presenting with bizarre behavior and thought blocking, not evident at time of admission. His thoughts are clear and linear, focus is impaired evident by Roberto not directly answering questions or changing subject. [facility] contacted regarding last dose of Abilify Maintena but did not answer. Roberto is not a good historian and could not give an accurate timeline of last dose. Tox screen positive for THC and Cocaine. Pt is a 1 PPD smoker but denied nicotine replacement. No medical issues or physical complaints offered. Placed on 15 minute checks for safety.
[2024-04-06 20:00] VITALS: BP 110/51; PULSE 69; RESP 18; TEMP 36.6; O2SAT 96
[2024-04-06] MEDS: Divalproex Sodium 500 MG TABLET.DR 1000 MG PO (20:06)
[2024-04-06 20:09] LABS: Ammonia 55 umol/L (13-55)
[2024-04-06 20:16] LABS: Valproate < 12.5 mcg/mL (50.0-100.0)
[2024-04-07 07:53] VITALS: BP 142/70; PULSE 81; RESP 16; TEMP 36.7; O2SAT 97
--- NOTE | 2024-04-07 10:37 | HO.PSYCHPN ---
Subjective Subjective Date of Service: 04/07/24 Reason For Visit: Manic Psychotic Behavior Interim History: Patient seen. ZACHARY RN. Patient reports he is doing well. He denies AVH. Denies seeing snakes. Denies SI. Says he slept well last night. RN reports he is isolative to self. Calm and cooperative. Review of Systems Review of Systems Yes all other systems are reviewed and are negative Mental Status Exam Mental Status Exam Narrative: Pt is alert and oriented; behavior is cooperative and calm; dressed in hospital attire; mood is described as pretty good; eye contact appropriate; Speech is normal rate, loudness, amount, and not pressured; thought process is superficially organized; Thought content is on discharge and getting adderall; otherwise pertinent to relevant topics and without any delusional content, paranoid ideation or grandiosity; denies SI/HI/VH/AH. Diagnostics Vital Signs (24Hr): Vital Signs - 24 hr 04/06/24 15:29 04/06/24 20:00 04/07/24 07:53 Temperature 97.0 F 97.8 F 98.0 F Pulse Rate 92 69 81 Respiratory Rate 18 18 16 Blood Pressure 164/67 H 110/51 L 142/70 H Pulse Oximetry 97 96 97 Oxygen Delivery Method Room Air Room Air Room Air BMI result Body Mass Index 28.9 Labs 04/05/24 10:49 04/05/24 10:49 Labs: Laboratory Results - last 48 hr 04/05/24 04/06/24 10:49 19:57 WBC 6.5 RBC 4.37 L Hgb 14.1 Hct 40.7 L MCV 93.1 MCH 32.3 MCHC 34.6 RDW 12.3 Plt Count 216 MPV 9.9 Immature Gran % (Auto) 0.2 Neut % (Auto) 55.1 Lymph % (Auto) 30.9 [place] % (Auto) 10.9 Eos % (Auto) 2.3 Baso % (Auto) 0.6 Lymph # (Auto) 2.0 [place] # (Auto) 0.7 Eos # (Auto) 0.2 Baso # (Auto) 0.0 Abs Immat Gran (auto) 0.01 Absolute Neuts (auto) 3.6 Absolute Nucleated RBC 0.000 Nucleated RBC % (auto) 0.0 Sodium 141 Potassium 3.6 Chloride 103 Carbon Dioxide 31 H Anion Gap 11 L BUN 15 Creatinine 0.86 Estim Creat Clear Calc 134.9 Estimated GFR > 60 Random Glucose 96 Calcium 9.2 Total Bilirubin 0.4 AST 26 ALT 21 Alkaline Phosphatase 48 Ammonia 55 Total Protein 6.5 Albumin 3.9 Valproic Acid < 12.5 L Medications Medications Current Medications Acetaminophen (Acetaminophen 325 Mg Tablet) 650 mg PO Q6H PRN PRN Reason: Headache/Pain Mild Scale (1-3) Al Hydroxide/Mg Hydroxide (Magnesium Hydrox/Alum Hydrox 30 Ml Oral.Susp) 30 ml PO Q6H PRN PRN Reason: Heartburn/Nausea Divalproex Sodium (Divalproex Sodium 500 Mg Tablet.Dr) 1,000 mg PO BEDTIME ORA Last Admin: 04/06/24 20:06 Dose: 1,000 mg Hydroxyzine HCl (Hydroxyzine Hcl 25 Mg Tablet) 25 mg PO Q6H PRN PRN Reason: Anxiety Magnesium Hydroxide (Milk Of Magnesia 30 Ml Oral.Susp) 30 ml PO DAILY PRN PRN Reason: Constipation Nicotine Polacrilex (Nicotine Polacrilex 2 Mg Gum) 4 mg BUCCAL Q2H PRN PRN Reason: Nicotine Cravings Propranolol HCl (Propranolol Hcl 10 Mg Tablet) 10 mg PO BID PRN; Protocol PRN Reason: anxiety Trazodone HCl (Trazodone Hcl 50 Mg Tablet) 50 mg PO BEDTIME MRX1 PRN PRN Reason: Insomnia Allergies Allergies Allergy/AdvReac Type Severity Reaction Status Date / Time No Known Allergies Allergy Verified 04/04/24 23:32 Assessment & Plan Assessment & Plan (1) Stimulant abuse: Status: Acute Code(s): F15.10 - Other stimulant abuse, uncomplicated (2) Cocaine use disorder: Status: Acute Code(s): F14.10 - Cocaine abuse, uncomplicated (3) Schizophrenia: Status: Acute Code(s): F20.9 - Schizophrenia, unspecified (4) Adderall use disorder, mild, abuse: Status: Acute Code(s): F15.10 - Other stimulant abuse, uncomplicated Plan continue VPA and propranolol. Rx Hx shows months of abilify FOX through 03/16 and PO invega through 02/17. restart PO invega, T/C different FOX from abilify. collect collateral on antipsychotic Hx. do not prescribe stimulants. supportive care through cocaine withdrawal syndrome. 12/28: Continue current management and treatment plan. Reason for continued inpatient stay Substantial Risk for: inability to function and rapid decompensation Time Spent With Patient Time: Total time managing care of this patient today ____ minutes.
[2024-04-07 20:00] VITALS: BP 116/86; PULSE 93; RESP 18; TEMP 36.3; O2SAT 97
[2024-04-07] MEDS: Divalproex Sodium 500 MG TABLET.DR 1000 MG PO (20:45)
[2024-04-07] MEDS: traZODone HCL 50 MG TABLET PO (23:14)
[2024-04-07] MEDS: hydrOXYzine HCL 25 MG TABLET PO (23:14)
[2024-04-08 08:00] VITALS: BP 112/53; PULSE 65; RESP 14; TEMP 36.6; O2SAT 97
--- NOTE | 2024-04-08 09:58 | HO.PSYCHPN ---
Subjective Subjective Date of Service: 04/08/24 Reason For Visit: Manic Psychotic Behavior Interim History: Patient seen. Discussed with RN. Patient has been doing well. He denies hallucinations. Isolating. He asks If I say I am seeing things will they keep me longer? He doesn't appear to be respondiong to internal stimuli. Denies SI. Says he slept well last night. RN reports he is isolative to self. Calm and cooperative. Review of Systems Review of Systems Yes all other systems are reviewed and are negative Mental Status Exam Mental Status Exam Narrative: Pt is alert and oriented; behavior is cooperative and calm; dressed in hospital attire; mood is described as pretty good; eye contact appropriate; Speech is normal rate, loudness, amount, and not pressured; thought process is superficially organized; Thought content is on discharge and getting adderall; otherwise pertinent to relevant topics and without any delusional content, paranoid ideation or grandiosity; denies SI/HI/VH/AH. Diagnostics Vital Signs (24Hr): Vital Signs - 24 hr 04/07/24 20:00 04/08/24 08:00 Temperature 97.3 F 97.9 F Pulse Rate 93 65 Respiratory Rate 18 14 Blood Pressure 116/86 112/53 L Pulse Oximetry 97 97 Oxygen Delivery Method Room Air Room Air BMI result Body Mass Index 28.9 Labs 04/05/24 10:49 04/05/24 10:49 Labs: Laboratory Results - last 48 hr 04/06/24 19:57 Ammonia 55 Valproic Acid < 12.5 L Medications Medications Current Medications Acetaminophen (Acetaminophen 325 Mg Tablet) 650 mg PO Q6H PRN PRN Reason: Headache/Pain Mild Scale (1-3) Al Hydroxide/Mg Hydroxide (Magnesium Hydrox/Alum Hydrox 30 Ml Oral.Susp) 30 ml PO Q6H PRN PRN Reason: Heartburn/Nausea Divalproex Sodium (Divalproex Sodium 500 Mg Tablet.) 1,000 mg PO BEDTIME ORA Last Admin: 04/07/24 20:45 Dose: 1,000 mg Hydroxyzine HCl (Hydroxyzine Hcl 25 Mg Tablet) 25 mg PO Q6H PRN PRN Reason: Anxiety Last Admin: 04/07/24 23:14 Dose: 25 mg Magnesium Hydroxide (Milk Of Magnesia 30 Ml Oral.Susp) 30 ml PO DAILY PRN PRN Reason: Constipation Nicotine Polacrilex (Nicotine Polacrilex 2 Mg Gum) 4 mg BUCCAL Q2H PRN PRN Reason: Nicotine Cravings Propranolol HCl (Propranolol Hcl 10 Mg Tablet) 10 mg PO BID PRN; Protocol PRN Reason: anxiety Trazodone HCl (Trazodone Hcl 50 Mg Tablet) 50 mg PO BEDTIME MRX1 PRN PRN Reason: Insomnia Last Admin: 04/07/24 23:14 Dose: 50 mg Allergies Allergies Allergy/AdvReac Type Severity Reaction Status Date / Time No Known Allergies Allergy Verified 04/04/24 23:32 Assessment & Plan Assessment & Plan (1) Stimulant abuse: Status: Acute Code(s): F15.10 - Other stimulant abuse, uncomplicated (2) Cocaine use disorder: Status: Acute Code(s): F14.10 - Cocaine abuse, uncomplicated (3) Schizophrenia: Status: Acute Code(s): F20.9 - Schizophrenia, unspecified (4) Adderall use disorder, mild, abuse: Status: Acute Code(s): F15.10 - Other stimulant abuse, uncomplicated Plan continue VPA and propranolol. Rx Hx shows months of abilify FOX through 03/16 and PO invega through 02/17. restart PO invega, T/C different FOX from abilify. collect collateral on antipsychotic Hx. do not prescribe stimulants. supportive care through cocaine withdrawal syndrome. 04/07: Continue current management and treatment plan. 04/08: Continue current management and treatment plan. Reason for continued inpatient stay Substantial Risk for: inability to function and rapid decompensation Time Spent With Patient Time: Total time managing care of this patient today ____ minutes.
[2024-04-08 20:00] VITALS: BP 139/73; PULSE 80; RESP 15; TEMP 36.8; O2SAT 99
[2024-04-08] MEDS: Divalproex Sodium 500 MG TABLET.DR 1000 MG PO (20:44)
[2024-04-08] MEDS: traZODone HCL 50 MG TABLET PO (20:44)
[2024-04-09] MEDS: hydrOXYzine HCL 25 MG TABLET PO ×2 (01:12→22:21)
[2024-04-09] MEDS: traZODone HCL 50 MG TABLET PO ×3 (01:12→22:21)
[2024-04-09] MEDS: Magnesium Hydrox/Alum Hydrox 30 ML ORAL.SUSP PO (01:12)
[2024-04-09 08:30] VITALS: BP 119/74; PULSE 96; RESP 18; TEMP 36.6; O2SAT 97
--- NOTE | 2024-04-09 09:43 | HO.PSYCHPN ---
Subjective Subjective Date of Service: 04/09/24 Reason For Visit: Manic Psychotic Behavior Subjective Notes: 3 Day Interim History: Active on unit. keeping to self. patient reports feeling better ; pt stated, I'm doing good. I'm no longer having voices. I also slept really good last night . denies SI/HI/VH/AH. Pt reports he plans on staying with his mother when discharged. 3 day up on 04/12/24. Medication Compliance: Yes Side effects from medications: No Attending Groups: No Review of Systems Constitutional: Reports as per HPI Eyes: Reports as per HPI Reports as per HPI Cardiovascular: Reports as per HPI Respiratory: Reports as per HPI Gastrointestinal: Reports as per HPI Genitourinary: Reports as per HPI Musculoskeletal: Reports as per HPI Skin/Breast: Reports as per HPI Reports as per HPI Psychiatric: Reports as per HPI Endocrine: Reports as per HPI Hematologic/Lymphatic: Reports as per HPI Allergic/Immunologic: Reports as per HPI Mental Status Exam Mental Status Exam Patient Appearance: Appropriate Patient Orientation: Person, Place, Time and Situation Level of Consciousness: Awake and Alert Patient Behavior: Appropriate, Cooperative and Good Eye Contact Mood Description: Calm Affect Description: Calm Ability to Follow Directions: Good Speech Pattern: Clear and Appropriate Memory Description: Intact Hallucinations: None Thought Process: Intact Thought Content: positive for Intact Diagnostics Vital Signs (24Hr): Vital Signs - 24 hr 04/08/24 20:00 Temperature 98.2 F Pulse Rate 80 Respiratory Rate 15 Blood Pressure 139/73 Pulse Oximetry 99 BMI result Body Mass Index 28.9 Labs 04/05/24 10:49 04/05/24 10:49 Medications Medications Current Medications Acetaminophen (Acetaminophen 325 Mg Tablet) 650 mg PO Q6H PRN PRN Reason: Headache/Pain Mild Scale (1-3) Al Hydroxide/Mg Hydroxide (Magnesium Hydrox/Alum Hydrox 30 Ml Oral.Susp) 30 ml PO Q6H PRN PRN Reason: Heartburn/Nausea Last Admin: 04/09/24 01:12 Dose: 30 ml Divalproex Sodium (Divalproex Sodium 500 Mg Tablet.Dr) 1,000 mg PO BEDTIME ORA Last Admin: 04/08/24 20:44 Dose: 1,000 mg Hydroxyzine HCl (Hydroxyzine Hcl 25 Mg Tablet) 25 mg PO Q6H PRN PRN Reason: Anxiety Last Admin: 04/09/24 01:12 Dose: 25 mg Magnesium Hydroxide (Milk Of Magnesia 30 Ml Oral.Susp) 30 ml PO DAILY PRN PRN Reason: Constipation Nicotine Polacrilex (Nicotine Polacrilex 2 Mg Gum) 4 mg BUCCAL Q2H PRN PRN Reason: Nicotine Cravings Propranolol HCl (Propranolol Hcl 10 Mg Tablet) 10 mg PO BID PRN; Protocol PRN Reason: anxiety Trazodone HCl (Trazodone Hcl 50 Mg Tablet) 50 mg PO BEDTIME MRX1 PRN PRN Reason: Insomnia Last Admin: 04/09/24 01:12 Dose: 50 mg Allergies Allergies Allergy/AdvReac Type Severity Reaction Status Date / Time No Known Allergies Allergy Verified 04/04/24 23:32 Assessment & Plan Assessment & Plan (1) Stimulant abuse: Status: Acute Code(s): F15.10 - Other stimulant abuse, uncomplicated (2) Cocaine use disorder: Status: Acute Code(s): F14.10 - Cocaine abuse, uncomplicated (3) Schizophrenia: Status: Acute Code(s): F20.9 - Schizophrenia, unspecified (4) Adderall use disorder, mild, abuse: Status: Acute Code(s): F15.10 - Other stimulant abuse, uncomplicated Plan continue VPA and propranolol. Rx Hx shows months of abilify FOX through 03/16 and PO invega through 02/17. restart PO invega, T/C different FOX from abilify. collect collateral on antipsychotic Hx. do not prescribe stimulants. supportive care through cocaine withdrawal syndrome. 04/07: Continue current management and treatment plan. 04/08: Continue current management and treatment plan. 04/09: Active on unit. keeping to self. patient reports feeling better ; pt stated, I'm doing good. I'm no longer having voices. I also slept really good last night . denies SI/HI/VH/AH. Pt reports he plans on staying with his mother when discharged. 3 day up on 04/12/24. Continue current tx plan. Patient educated on: diagnosis and medication risk/benefits Reason for continued inpatient stay Substantial Risk for: med/psych decompensation Time Spent With Patient Time: Total time managing care of this patient today _20___ minutes.
[2024-04-09 19:16] LABS: COVID-19 Test Negative (Negative); IDNOW Serial# 08D9AD1C
[2024-04-09 19:43] VITALS: BP 122/58; PULSE 72; RESP 18; TEMP 36.5; O2SAT 96
[2024-04-09] MEDS: Divalproex Sodium 500 MG TABLET.DR 1000 MG PO (20:34)
[2024-04-09] MEDS: Acetaminophen 325 MG TABLET 650 MG PO (20:37)
[2024-04-09] MEDS: guaiFENesin DM 600/30 1 TAB TAB.ER.12H PO (20:56)
[2024-04-10 07:33] VITALS: BP 128/67; PULSE 79; RESP 16; TEMP 36.4; O2SAT 95
[2024-04-10] MEDS: guaiFENesin DM 600/30 1 TAB TAB.ER.12H PO ×2 (08:40→21:15)
[2024-04-10] MEDS: Benztropine Mesylate 1 MG TABLET PO (12:10)
[2024-04-10] MEDS: Paliperidone ER 6 MG TAB.ER.24 PO (12:10)
--- NOTE | 2024-04-10 12:23 | HO.PSYCHPN ---
Subjective Subjective Date of Service: 04/10/24 Reason For Visit: Manic Psychotic Behavior Interim History: calm, cooperative. asking repeatedly if he will be able to go ; informed he will. not sure when last he received his FOX blanca. per staff, 12b up 04/12. isolative. COVID NEG. denies psych Sx. slept 6 hours. Mental Status Exam Mental Status Exam Narrative: Pt is alert and oriented; behavior is cooperative and calm; dressed in street clothes; mood is described as good; eye contact appropriate; Speech is normal rate, loudness, amount, and not pressured; thought process is organized; Thought content is on discharge; otherwise pertinent to relevant topics and without any delusional content, paranoid ideation or grandiosity; no SI/HI/VH/AH expressed. Diagnostics Vital Signs (24Hr): Vital Signs - 24 hr 04/09/24 19:43 04/10/24 07:33 Temperature 97.7 F 97.6 F Pulse Rate 72 79 Respiratory Rate 18 16 Blood Pressure 122/58 L 128/67 Pulse Oximetry 96 95 Oxygen Delivery Method Room Air Room Air BMI result Body Mass Index 28.9 Labs 04/05/24 10:49 04/05/24 10:49 Labs: Laboratory Results - last 48 hr 04/09/24 18:53 COVID-19 (GERALDO) Negative COVID-19 Clin Com See Note Medications Medications Current Medications Acetaminophen (Acetaminophen 325 Mg Tablet) 650 mg PO Q6H PRN PRN Reason: Headache/Pain Mild Scale (1-3) Last Admin: 04/09/24 20:37 Dose: 650 mg Al Hydroxide/Mg Hydroxide (Magnesium Hydrox/Alum Hydrox 30 Ml Oral.Susp) 30 ml PO Q6H PRN PRN Reason: Heartburn/Nausea Last Admin: 04/09/24 01:12 Dose: 30 ml Benztropine Mesylate (Benztropine Mesylate 1 Mg Tablet) 1 mg PO DAILY [facility] Last Admin: 04/10/24 12:10 Dose: 1 mg Divalproex Sodium (Divalproex Sodium 500 Mg Tablet.Dr) 1,000 mg PO BEDTIME ORA Last Admin: 04/09/24 20:34 Dose: 1,000 mg Guaifenesin/Dextromethorphan (Guaifenesin Dm 600/30 1 Tab Tab.Er.12h) 1 tab PO BID ORA Last Admin: 04/10/24 08:40 Dose: 1 tab Hydroxyzine HCl (Hydroxyzine Hcl 25 Mg Tablet) 25 mg PO Q6H PRN PRN Reason: Anxiety Last Admin: 04/09/24 22:21 Dose: 25 mg Magnesium Hydroxide (Milk Of Magnesia 30 Ml Oral.Susp) 30 ml PO DAILY PRN PRN Reason: Constipation Nicotine Polacrilex (Nicotine Polacrilex 2 Mg Gum) 4 mg BUCCAL Q2H PRN PRN Reason: Nicotine Cravings Paliperidone (Paliperidone Er 6 Mg Tab.Er.24) 6 mg PO DAILY [facility] Last Admin: 04/10/24 12:10 Dose: 6 mg Propranolol HCl (Propranolol Hcl 10 Mg Tablet) 10 mg PO BID PRN; Protocol PRN Reason: anxiety Trazodone HCl (Trazodone Hcl 50 Mg Tablet) 50 mg PO BEDTIME MRX1 PRN PRN Reason: Insomnia Last Admin: 04/09/24 22:21 Dose: 50 mg Allergies Allergies Allergy/AdvReac Type Severity Reaction Status Date / Time No Known Allergies Allergy Verified 04/04/24 23:32 Assessment & Plan Assessment & Plan (1) Stimulant abuse: Status: Acute Code(s): F15.10 - Other stimulant abuse, uncomplicated (2) Cocaine use disorder: Status: Acute Code(s): F14.10 - Cocaine abuse, uncomplicated (3) Schizophrenia: Status: Acute Code(s): F20.9 - Schizophrenia, unspecified (4) Adderall use disorder, mild, abuse: Status: Acute Code(s): F15.10 - Other stimulant abuse, uncomplicated Plan continue VPA and propranolol. Rx Hx shows months of abilify FOX through 03/16 and PO invega through 02/17. restart PO invega, T/C different FOX from abilify. collect collateral on antipsychotic Hx. do not prescribe stimulants. supportive care through cocaine withdrawal syndrome. 04/07: Continue current management and treatment plan. 04/08: Continue current management and treatment plan. 04/09: Active on unit. keeping to self. patient reports feeling better ; pt stated, I'm doing good. I'm no longer having voices. I also slept really good last night . denies SI/HI/VH/AH. Pt reports he plans on staying with his mother when discharged. 3 day up on 04/12/24. Continue current tx plan. 04/10: asking for discharge ; informed that is the plan. not sure when last abilify maintenna 400 mg was given, call placed to [facility] to confirm. 12b up 04/12. cogentin 1 daily and invega 6 mg daily restarted. Reason for continued inpatient stay Substantial Risk for: inability to function and rapid decompensation Time Spent With Patient Time: Total time managing care of this patient today __35__ minutes.
[2024-04-10 19:35] VITALS: BP 110/51; PULSE 76; RESP 18; TEMP 37.3; O2SAT 97
[2024-04-10] MEDS: hydrOXYzine HCL 25 MG TABLET PO (21:15)
[2024-04-10] MEDS: Divalproex Sodium 500 MG TABLET.DR 1000 MG PO (21:15)
[2024-04-10] MEDS: traZODone HCL 50 MG TABLET PO (21:15)
[2024-04-11 07:25] VITALS: BP 126/67; PULSE 72; RESP 16; TEMP 36.9; O2SAT 98
[2024-04-11] MEDS: Benztropine Mesylate 1 MG TABLET PO (09:10)
[2024-04-11] MEDS: guaiFENesin DM 600/30 1 TAB TAB.ER.12H PO ×2 (09:10→20:23)
[2024-04-11] MEDS: Paliperidone ER 6 MG TAB.ER.24 PO (09:10)
--- NOTE | 2024-04-11 11:46 | P.PNPSI_ITS ---
Subjective Subjective Date of Service: 04/11/24 Reason For Visit: Manic Psychotic Behavior Subjective Notes: Section 12B Healthcare Proxy: No Guardianship: No Medical Problems Affecting Mental Status: No Interim History: 28 yo reports stopped meds and relapsed on cocaine which lead to current hospitalization- He is sleeping on his medication and appear brighter not attending groups but visible in the mileu- denies si or s/e of medications He says he slept but nursing reports he took 2 prns to sleep hydroxyine and trazodone Medication Compliance: Yes Side effects from medications: No Attending Groups: No Review of Systems Acute medical concerns: No Medical Review of Systems: unchanged Mental Status Exam Mental Status Exam Patient Appearance: Appropriate Patient Orientation: Person, Place, Time and Situation Level of Consciousness: Awake Patient Behavior: Appropriate and Cooperative Mood Description: Blunted Affect Description: Blunted Patient Cognition Impaired: No Ability to Follow Directions: Fair Speech Pattern: Clear and Impoverished Thought Content: positive for Intact and positive for Poverty of Content Judgement: Fair Diagnostics Vital Signs (24Hr): Vital Signs - 24 hr 04/10/24 19:35 04/11/24 07:25 Temperature 99.1 F 98.4 F Pulse Rate 76 72 Respiratory Rate 18 16 Blood Pressure 110/51 L 126/67 Pulse Oximetry 97 98 Oxygen Delivery Method Room Air Room Air BMI result Body Mass Index 28.9 Labs 04/05/24 10:49 04/05/24 10:49 Labs: Laboratory Results - last 48 hr 04/09/24 18:53 COVID-19 (GERALDO) Negative COVID-19 Clin Com See Note Medications Medications Current Medications Acetaminophen (Acetaminophen 325 Mg Tablet) 650 mg PO Q6H PRN PRN Reason: Headache/Pain Mild Scale (1-3) Last Admin: 04/09/24 20:37 Dose: 650 mg Al Hydroxide/Mg Hydroxide (Magnesium Hydrox/Alum Hydrox 30 Ml Oral.Susp) 30 ml PO Q6H PRN PRN Reason: Heartburn/Nausea Last Admin: 04/09/24 01:12 Dose: 30 ml Benztropine Mesylate (Benztropine Mesylate 1 Mg Tablet) 1 mg PO DAILY [facility] Last Admin: 04/11/24 09:10 Dose: 1 mg Divalproex Sodium (Divalproex Sodium 500 Mg Tablet.Dr) 1,000 mg PO BEDTIME [facility] Last Admin: 04/10/24 21:15 Dose: 1,000 mg Guaifenesin/Dextromethorphan (Guaifenesin Dm 600/30 1 Tab Tab.Er.12h) 1 tab PO BID [facility] Last Admin: 04/11/24 09:10 Dose: 1 tab Hydroxyzine HCl (Hydroxyzine Hcl 25 Mg Tablet) 25 mg PO Q6H PRN PRN Reason: Anxiety Last Admin: 04/10/24 21:15 Dose: 25 mg Magnesium Hydroxide (Milk Of Magnesia 30 Ml Oral.Susp) 30 ml PO DAILY PRN PRN Reason: Constipation Nicotine Polacrilex (Nicotine Polacrilex 2 Mg Gum) 4 mg BUCCAL Q2H PRN PRN Reason: Nicotine Cravings Paliperidone (Paliperidone Er 6 Mg Tab.Er.24) 6 mg PO DAILY [facility] Last Admin: 04/11/24 09:10 Dose: 6 mg Propranolol HCl (Propranolol Hcl 10 Mg Tablet) 10 mg PO BID PRN; Protocol PRN Reason: anxiety Trazodone HCl (Trazodone Hcl 50 Mg Tablet) 50 mg PO BEDTIME MRX1 PRN PRN Reason: Insomnia Last Admin: 04/10/24 21:15 Dose: 50 mg Allergies Allergies Allergy/AdvReac Type Severity Reaction Status Date / Time No Known Allergies Allergy Verified 04/04/24 23:32 Assessment & Plan Assessment & Plan (1) Stimulant abuse: Status: Acute Code(s): F15.10 - Other stimulant abuse, uncomplicated (2) Cocaine use disorder: Status: Acute Code(s): F14.10 - Cocaine abuse, uncomplicated (3) Schizophrenia: Status: Acute Code(s): F20.9 - Schizophrenia, unspecified (4) Adderall use disorder, mild, abuse: Status: Acute Code(s): F15.10 - Other stimulant abuse, uncomplicated Plan continue VPA and propranolol. Rx Hx shows months of abilify FOX through 03/16 and PO invega through 02/17. restart PO invega, T/C different FOX from abilify. collect collateral on antipsychotic Hx. do not prescribe stimulants. supportive care through cocaine withdrawal syndrome. 04/07: Continue current management and treatment plan. 04/08: Continue current management and treatment plan. 04/09: Active on unit. keeping to self. patient reports feeling better ; pt stated, I'm doing good. I'm no longer having voices. I also slept really good last night . denies SI/HI/VH/AH. Pt reports he plans on staying with his mother when discharged. 3 day up on 04/12/24. Continue current tx plan. 04/10: asking for discharge ; informed that is the plan. not sure when last abilify maintenna 400 mg was given, call placed to [facility] to confirm. 12b up 04/12. cogentin 1 daily and invega 6 mg daily restarted. 04/11/24 - ongoing treatment for psychotic decompensation in setting of substance relapse and compliance issue- pending dc 04/12/24 Patient educated on: medication risk/benefits Informed Consent: understands Reason for continued inpatient stay Substantial Risk for: rapid decompensation Time Spent With Patient Time: Total time managing care of this patient today ____ minutes.
[2024-04-11 20:00] VITALS: BP 120/69; PULSE 77; RESP 18; TEMP 36.7; O2SAT 98
[2024-04-11] MEDS: Divalproex Sodium 500 MG TABLET.DR 1000 MG PO (20:23)
[2024-04-11] MEDS: hydrOXYzine HCL 25 MG TABLET PO (20:41)
[2024-04-11] MEDS: traZODone HCL 50 MG TABLET PO (20:41)
[2024-04-11] MEDS: Acetaminophen 325 MG TABLET 650 MG PO (21:08)
[2024-04-12] MEDS: traZODone HCL 50 MG TABLET PO (00:44)
[2024-04-12 07:30] VITALS: BP 158/67; PULSE 87; RESP 14; TEMP 36.6; O2SAT 99
[2024-04-12] MEDS: Paliperidone ER 6 MG TAB.ER.24 PO (09:35)
[2024-04-12] MEDS: Benztropine Mesylate 1 MG TABLET PO (09:35)
[2024-04-12] MEDS: guaiFENesin DM 600/30 1 TAB TAB.ER.12H PO (09:35)
--- NOTE | 2024-04-12 10:22 | PM.PSYDC ---
DS: Providers Provider Date of Service: 04/12/24 Date of admission: 04/06/24 12:04 Primary care physician: Unknown Physician DS: Diagnosis Discharge Diagnosis (1) Stimulant abuse: Status: Acute (2) Cocaine use disorder: Status: Acute (3) Schizophrenia: Status: Acute (4) Adderall use disorder, mild, abuse: Status: Acute DS: Medications Discharge Medications Home Medications: Home Medications ?Medication ?Instructions ?Recorded ?Confirmed divalproex 500 mg tablet,delayed 1,000 mg PO BEDTIME 04/05/24 04/05/24 release propranolol 10 mg tablet 10 mg PO BID PRN anxiety 04/05/24 04/05/24 Previous Rx's ?Medication ?Instructions ?Recorded aripiprazole 400 mg suspension, 400 mg IM Q28D #1 ea 01/24/24 extended rel.intramuscular syringe (Gemini Betancur) benztropine 1 mg tablet 1 mg PO DAILY #0 tabs 04/12/24 paliperidone 6 mg tablet,extended 6 mg PO DAILY #0 tabs 04/12/24 release 24 hr (Invega) Mental Status Exam Mental Status Exam Narrative: Pt is alert and oriented; behavior is cooperative and calm; dressed in street clothes; mood is described as pretty good; eye contact appropriate; Speech is normal rate, loudness, amount, and not pressured; thought process is organized; Thought content is on discharge; otherwise pertinent to relevant topics and without any delusional content, paranoid ideation or grandiosity; no SI/HI/VH/AH. Data Data Completed and Pending Completed studies during hospitalization [Text1]: 04/05/24 04/06/24 04/09/24 10:49 19:57 18:53 WBC 6.5 RBC 4.37 L Hgb 14.1 Hct 40.7 L MCV 93.1 MCH 32.3 MCHC 34.6 RDW 12.3 Plt Count 216 MPV 9.9 Immature Gran % (Auto) 0.2 Neut % (Auto) 55.1 Lymph % (Auto) 30.9 [place] % (Auto) 10.9 Eos % (Auto) 2.3 Baso % (Auto) 0.6 Lymph # (Auto) 2.0 [place] # (Auto) 0.7 Eos # (Auto) 0.2 Baso # (Auto) 0.0 Abs Immat Gran (auto) 0.01 Absolute Neuts (auto) 3.6 Absolute Nucleated RBC 0.000 Nucleated RBC % (auto) 0.0 Sodium 141 Potassium 3.6 Chloride 103 Carbon Dioxide 31 H Anion Gap 11 L BUN 15 Creatinine 0.86 Estim Creat Clear Calc 134.9 Estimated GFR > 60 Random Glucose 96 Calcium 9.2 Total Bilirubin 0.4 AST 26 ALT 21 Alkaline Phosphatase 48 Ammonia 55 Total Protein 6.5 Albumin 3.9 Valproic Acid < 12.5 L COVID-19 (GERALDO) Negative COVID-19 Clin Com See Note DS: Summary Time Spent with Patient Time attestation: Total time managing care of this patient today ____ minutes. Discharge Plan Discharge Anticipated Discharge Date/Time: 04/12/24 11:59 Patient Disposition: Home, Self-Care Discharge Diagnosis: Schizophrenia Cocaine Use Disorder Stimulant Use Disorder Referrals: Hoda Brewer (Psychiatry) [Other] - 04/23/24 10:00 am (IN OFFICE APPOINTMENT) Physician,Unknown J [Primary Care Provider] - 1 Week Discharge Medications: New benztropine 1 mg Tablet 1 mg PO DAILY Qty: 0 0RF paliperidone [Invega] 6 mg Tablet Extended Release 24 Hr 6 mg PO DAILY Qty: 0 0RF Continued Abilify Maintena 400 mg Suspension,Extended Rel Syring 400 mg IM Q28D Qty: 1 0RF Patient Comments: Confirmed dose on 04/10/24 with Samira at [facility] Rx Instructions: Next IM due on 02/18/2024. divalproex 500 mg tablet,delayed release (DR/EC) 1,000 mg PO BEDTIME propranolol 10 mg tablet 10 mg PO BID PRN (Reason: anxiety) Discharge Orders: Discharge Order (Routine); Ordered 04/12/24 Ordered By: Watson Pedraza Diet: Advance to usual diet Activity on Discharge: As tolerated Stand Alone Forms: Patient Portal Discharge page Print Language: Estonian Care Plan Goals: remain safe and stable in the outpatient treatment setting Health Concerns: none Plan of Treatment: take medications as prescribed, attend appointments as scheduled Assessment: not at imminent risk of harm to self or others
== END 2024-04-12 11:55 | disposition home or self-care (01) | DRG 885 ==
LOC: HO.ED 04-05 06:47 → HO.PADLT16 04-06 12:17
PROVIDERS: Social Worker; Admitting Provider Psychiatry & Neurology Psychiatry; Emergency Provider Internal Medicine; Visit Provider Psychiatry & Neurology Psychiatry
DX: F20.9 Schizophrenia, unspecified (principal); F17.210 Nicotine dependence, cigarettes, uncomplicated; F15.10 Other stimulant abuse, uncomplicated; F14.10 Cocaine abuse, uncomplicated; Z71.6 Tobacco abuse counseling; Z20.822 Contact with and (suspected) exposure to COVID-19; Z79.899 Other long term (current) drug therapy
CPT/HCPCS: 36415; 80053; 80164; 80307; 81001; 82140; 85025; 87635; 93005; 99285

== ENCOUNTER → 2024-04-04 23:21 | Outpatient (BNV) | payer MEDICARE, SELFPAY | PROVIDERS: Emergency Provider Internal Medicine; Visit Provider Internal Medicine Cardiovascular Disease | DX: R00.0 Tachycardia, unspecified (principal) | CPT/HCPCS: 93010 ==

== ENCOUNTER → 2024-04-06 12:04 | Outpatient (BNV) | payer OTHER, SELFPAY | PROVIDERS: Admitting Provider Psychiatry & Neurology Psychiatry; Emergency Provider Internal Medicine; Visit Provider Psychiatry & Neurology Psychiatry | DX: F20.9 Schizophrenia, unspecified (principal); F15.10 Other stimulant abuse, uncomplicated; F14.10 Cocaine abuse, uncomplicated | CPT/HCPCS: 90792; 99231 ==

== ENCOUNTER 2024-05-06 01:53 | Emergency (ER) | payer MEDICAID, SELFPAY ==
[2024-05-06 02:06] VITALS: BP 148/87; PULSE 109; RESP 16; TEMP 36.6; O2SAT 97
[2024-05-06 02:22] VITALS: BP 148/87; PULSE 111; RESP 27; TEMP 36.6; BMI 31.0
[2024-05-06 03:02] LABS: MANUAL DIFF FLAG NO
[2024-05-06 03:03] LABS: Basophils Percent Auto 0.5 % (0-2); Hematocrit 41.1 % (42.0-52.0); Hemoglobin 14.2 g/dl (14.0-18.0); Imm Gran Abs Auto 0.03 X10*3/uL (0.00-0.03); Imm Gran Pct Auto 0.3 % (0.0-0.4); Lymphocytes Absolute Auto 1.4 X10*3/uL (1.2-4.9); Mean Corpuscular HGB Conc 34.5 g/dl (31.0-36.0); Mean Corpuscular Hemoglobin 31.8 pg (27.0-33.0); Mean Corpuscular Volume 92.2 fL (80.0-98.0); Mean Platelet Volume 9.4 fL (9.4-12.4); Monocytes Absolute Auto 0.5 X10*3/uL (0.1-1.2); Monocytes Percent Auto 5.5 % (2-11); Neutrophils Absolute Auto 6.8 x10*3/uL (2.0-8.3); Neutrophils Percent Auto 77.7 % (45-73); Platelet Count 248 X10*3/uL (160-400); Red Blood Count 4.46 X10*6/uL (4.60-5.80); Red Cell Distribution Width 12.4 % (11.0-16.0); White Blood Count 8.7 X10*3/uL (4.8-10.8)
[2024-05-06 03:24] LABS: Alanine Aminotransferase 12 U/L (0-40); Albumin Level 4.1 g/dL (3.5-5.0); Anion Gap 12 (12-20); Aspartate Amino Transferase 18 U/L (5-37); Bilirubin Total 0.1 mg/dL (0.0-1.0); Blood Urea Nitrogen 12 mg/dL (9-16); Calcium 9.4 mg/dL (8.4-10.2); Carbon Dioxide 27 mmol/L (22-29); Chloride 107 mmol/L (96-108); Creatinine Clr Calc Pharmacy 124.5; Estimated Glomerular Filt Rate > 60; Ethanol < 10 mg/dL; Glucose Random 97 mg/dL (60-115); Potassium 4.4 mmol/L (3.3-5.1); Sodium 142 mmol/L (135-145); Total Protein 7.3 g/dL (6.5-8.0)
[2024-05-06 03:51] LABS: Alkaline Phosphatase 55 U/L (39-117)
[2024-05-06 04:01] VITALS: PULSE 111
[2024-05-06 04:38] LABS: Appearance Urine Clear; Color Urine Yellow; Glucose Urine UA Negative (Negative); Leukocyte Esterase Urine Negative (Negative); Nitrite Urine Negative (Negative); Specific Gravity - Urine 1.025 (1.005-1.025); Urine Blood Negative (Negative); Urine Ketones Negative (Negative); Urine Protein Negative (Neg-Trace)
[2024-05-06 04:51] LABS: Amphetamine Screen Urine Not Detected (Not Detect); Barbiturates, Urine Not Detected (Not Detect); Benzodiazepines Screen Urine Not Detected (Not Detect); Buprenorphine Scr Not Detected (Not Detect); Cannabinoid Screen Urine POSITIVE (Not Detect); Cocaine Screen Urine POSITIVE (Not Detect); Fentanyl, urine Not Detected (Not Detect); Methadone Screen, Urine Not Detected (Not Detect); Opiate Screen Urine Not Detected (Not Detect); Oxycodone Screen Urine Not Detected (Not Detect); Phencyclidine Screen Urine Not Detected (Not Detect)
--- NOTE | 2024-05-06 04:55 | ED_ITS ---
HPI - General Adult General Chief complaint: General Medical Stated complaint: COCAINE USE/HX OF SCHIZOAFFECTIVE DISORDER Time Seen by Provider: 05/06/24 04:55 Source: patient Mode of arrival: ambulatory Limitations: no limitations History of Present Illness ED Provider: Dr. Beba Braden HPI narrative: Patient comes to the emergency room complaining of seeing snakes in his apartment. Patient admits to using cocaine. Patient denies SI or HI Related Data Home Medications ?Medication ?Instructions ?Recorded ?Confirmed divalproex 500 mg tablet,delayed 1,000 mg PO BEDTIME 04/05/24 05/06/24 release propranolol 10 mg tablet 10 mg PO BID PRN anxiety 04/05/24 05/06/24 Previous Rx's ?Medication ?Instructions ?Recorded aripiprazole 400 mg suspension, 400 mg IM Q28D #1 ea 01/24/24 extended rel.intramuscular syringe (Gemini Betancur) benztropine 1 mg tablet 1 mg PO DAILY #0 tabs 04/12/24 paliperidone 6 mg tablet,extended 6 mg PO DAILY #0 tabs 04/12/24 release 24 hr (Invega) Allergies Allergy/AdvReac Type Severity Reaction Status Date / Time No Known Allergies Allergy Verified 05/06/24 02:24 Review of Systems 2 Review of Systems: Constitutional : No Weight loss, No Fever, No Chills, No Night Sweats, No Fatigue, No Malaise ENT/Mouth : No Hearing loss, No Ear Pain, No Nasal Congestion, No Sinus Pain, No Hoarseness, No sore throat, No Rhinorrhea, No Swallowing Difficulty Eyes: No Eye Pain, No Swelling, No Redness, No Foreign Body, No Discharge, No Vision Changes Cardiovascular : No Chest Pain, No SOB, No Dyspnea on Exertion, No Orthopnea, No Edema, No Palpitations Respiratory : No Cough, No Sputum, No Wheezing, No Smoke Exposure, No Dyspnea Gastrointestinal : No Nausea, No Vomiting, No Diarrhea, No Constipation, No abdominal Pain, No Hematochezia, No Melena Genitourinary : no irregular bleeding, No Dysuria, No Urinary Frequency, No Hematuria, No Urinary Incontinence, No Urgency, No Flank Pain, No Urinary Flow Changes, No Hesitancy Musculoskeletal : No joint pain, No Myalgias, No Joint Swelling Skin : No Skin Lesions, No rash Neuro : No Weakness, No Numbness, No Paresthesias, No Loss of Consciousness, No Dizziness, No Headache Psych : No Anxiety/Panic, No Depression, No SI/HI/AH/VH, complaining of visual hallucinations Heme/Lymph: No Bruising, No Bleeding,No Lymphadenopathy Endocrine : No Polyuria, No Polydipsia, No Temperature Intolerance [facility] Past Medical History Medical History Acute psychosis Elevated liver enzymes Adderall use disorder, mild, abuse History of cocaine use History of foot ulcer Schizophrenia Surgical History S/P ear surgery Family History Family History Brother Substance use disorder Bipolar disorder Maternal Grandmother Schizophrenia Paternal Grandmother Mental health disorder Mother Diabetes mellitus Anxiety disorder Maternal Uncle Bipolar disorder Alcoholism Father Essential hypertension Social History Social History Household Members: Family Household Members Other:: mother and her partner Housing: House Alcohol intake: never Patient Tobacco Use Status: Current everyday Tobacco user Tobacco use type: Cigarette Cigarette Packs Per Day: 1 Cigarettes Per Day: 20.0 Smoked in Last 30 Days: Yes e-Cigarette/Vaping Use: Never Used Use of substances other than those prescribed or required for medical reasons: Yes Substance Use Type: Crack/Cocaine and Marijuana Substance Use Frequency: Daily Last Used Substance: Just Prior to Admission Advance Directives: No Advance Directives Information Provided: Yes Do you have a plan to hurt others: No Plan service: No Current occupational status: unemployed Sexual orientation: Don't Know Cognitive needs: No Hearing needs: No Vision needs: Yes Physical Exam ED Vital Signs: Vital Signs - 24 hr 05/06/24 02:06 05/06/24 02:22 05/06/24 04:01 Temperature 97.8 F 97.8 F Pulse Rate 109 H 111 H Pulse Rate [Monitor] 111 H Respiratory Rate 16 27 H Blood Pressure 148/87 H 148/87 H Pulse Oximetry 97 Oxygen Delivery Method Room Air BMI result Body Mass Index 31.0 Const Other: Appearance: Alert. Oriented X3. No acute distress. Eyes: Pupils equal, round and reactive to light. ENT: Pharynx normal. Neck: Normal inspection. Neck supple. No lymph nodes noted. No crepitus CVS: Normal heart rate and rhythm. Pulses normal. Normal S1 and S2 Respiratory: No respiratory distress. Breath sounds normal. No Wheezing. No rales Abdomen: Soft and nontender. No rigidity. No distention. Skin: Skin warm and dry. Normal skin color. Normal skin turgor. Extremities: No lower extremity edema. No Lacerations. No Rash Neuro: Oriented X 3. No motor deficit. No sensory deficit. Moving all extremities. No slurred speech. CN 2 through 12 grossly intact Psych: calm, cooperative Course Reevaluation(s) Reevaluation #1: We are waiting for care team evaluation, patient has history of schizophrenia, history of polysubstance abuse/stimulant abuse Time: 07:53 Medical Decision Making Medical Decision Making [facility] Narrative: My interpretation of labs: No significant abnormality in patient's hematology chemistry, toxicology positive for cocaine and marijuana, ETOH negative Care team consult pending Patient requesting Adderall to make him feel better. At this time, patient's request has been declined Differential Diagnosis Differential Diagnoses: The differential diagnosis associated with the presentation includes (Anxiety, depression, polysubstance abuse, schizophrenia) Lab Data [facility] Lab Attestation statement: I reviewed the patient's lab results. 05/06/24 02:58 05/06/24 02:58 Labs: Lab Results 05/06/24 05/06/24 05/06/24 Range/Units 02:58 04:32 04:59 WBC 8.7 (4.8-10.8) X10*3/uL RBC 4.46 L (4.60-5.80) X10*6/uL Hgb 14.2 (14.0-18.0) g/dl Hct 41.1 L (42.0-52.0) % MCV 92.2 (80.0-98.0) fL MCH 31.8 (27.0-33.0) pg MCHC 34.5 (31.0-36.0) g/dl RDW 12.4 (11.0-16.0) % Plt Count 248 (160-400) X10*3/uL MPV 9.4 (9.4-12.4) fL Immature Gran % (Auto) 0.3 (0.0-0.4) % Neut % (Auto) 77.7 H (45-73) % Lymph % (Auto) 16.0 L (20-40) % [place] % (Auto) 5.5 (2-11) % Eos % (Auto) 0.0 (0-4) % Baso % (Auto) 0.5 (0-2) % Lymph # (Auto) 1.4 (1.2-4.9) X10*3/uL [place] # (Auto) 0.5 (0.1-1.2) X10*3/uL Eos # (Auto) 0.0 (0.0-0.4) X10*3/uL Baso # (Auto) 0.0 (0.0-0.2) X10*3/uL Abs Immat Gran (auto) 0.03 (0.00-0.03) X10*3/uL Absolute Neuts (auto) 6.8 (2.0-8.3) x10*3/uL Absolute Nucleated RBC 0.000 (0.0-0.012) X10*3/uL Nucleated RBC % (auto) 0.0 (0.0-0.2) /100WBC Sodium 142 (135-145) mmol/L Potassium 4.4 D (3.3-5.1) mmol/L Chloride 107 (96-108) mmol/L Carbon Dioxide 27 (22-29) mmol/L Anion Gap 12 (12-20) BUN 12 (9-16) mg/dL Creatinine 1.09 (0.5-1.4) mg/dL Estim Creat Clear Calc 124.5 Estimated GFR > 60 Random Glucose 97 (60-115) mg/dL Calcium 9.4 (8.4-10.2) mg/dL Total Bilirubin 0.1 (0.0-1.0) mg/dL AST 18 (5-37) U/L ALT 12 (0-40) U/L Alkaline Phosphatase 55 (39-117) U/L Total Protein 7.3 (6.5-8.0) g/dL Albumin 4.1 (3.5-5.0) g/dL Urine Color Yellow Urine Appearance Clear Urine pH 7.0 (5.0-9.0) Ur Specific [place] 1.025 (1.005-1.025) Urine Protein Negative (Neg-Trace) mg/dL Urine Glucose (UA) Negative (Negative) mg/dL Urine Ketones Negative (Negative) mg/dL Urine Blood Negative (Negative) Urine Nitrite Negative (Negative) Ur Leukocyte Esterase Negative (Negative) Urine Opiates Screen Not Detected (Not Detect) Ur Buprenorphine Scrn Not Detected (Not Detect) ng/mL Ur Oxycodone Screen Not Detected (Not Detect) ng/mL Urine Methadone Screen Not Detected (Not Detect) ng/mL Urine Fentanyl Screen Not Detected (Not Detect) Ur Barbiturates Screen Not Detected (Not Detect) Valproic Acid 35.8 L (50.0-100.0) mcg/mL Ur Phencyclidine Scrn Not Detected (Not Detect) Ur Amphetamines Screen Not Detected (Not Detect) U Benzodiazepines Scrn Not Detected (Not Detect) Urine Cocaine Screen POSITIVE H (Not Detect) U Marijuana (THC) Screen POSITIVE H (Not Detect) Ethyl Alcohol < 10 mg/dL Discharge Plan Discharge Clinical Impression: Hallucination, visual, Polysubstance abuse Patient Disposition: Still a Patient Prescriptions: No Action Abilify Maintena 400 mg Suspension,Extended Rel Syring 400 mg IM Q28D Qty: 1 0RF Patient Comments: Confirmed dose on 04/10/24 with Samira at [facility] Rx Instructions: Verified by mother [phone] divalproex 500 mg tablet,delayed release (DR/EC) 1,000 mg PO BEDTIME Rx Instructions: takes 500 mg only propranolol 10 mg tablet 10 mg PO BID PRN (Reason: anxiety) benztropine 1 mg Tablet 1 mg PO DAILY Qty: 0 0RF paliperidone [Invega] 6 mg Tablet Extended Release 24 Hr 6 mg PO DAILY Qty: 0 0RF Print Language: Mauritanian
[2024-05-06 05:24] LABS: Valproate 35.8 mcg/mL (50.0-100.0)
--- NOTE | 2024-05-06 07:21 | PC.NURSE ---
Assumed care of patient at 0645, patient appears to be in no apparent distress this am, patient very nervous about the days plans. Pt verbalizes that he does not want to go to [facility] or [facility]. Pt educated that he needs to see care team to be evaled prior to any decisions about dispo are made. Pt is calm and cooperative at this time
--- NOTE | 2024-05-06 09:20 | PHA.MEDREC ---
Pharmacy Consult ? Medication Reconciliation Pharmacy has completed the medication reconciliation. Reviewed med rec done by nursing
--- NOTE | 2024-05-06 12:40 | PC.NURSE ---
Patient consistently asking to be discharged, calling his mom to tell her to tell the CARE team he can go home. Patient reminded he still needs to be evaluated by the CARE team
[2024-05-06 14:46] VITALS: BP 130/79; PULSE 112; RESP 16; TEMP 36.8; O2SAT 99
[2024-05-06] MEDS: Propranolol HCL 10 MG TABLET PO (16:06)
--- NOTE | 2024-05-06 16:11 | ED.GENADULT ---
HPI - General Adult General Chief complaint: General Medical Stated complaint: COCAINE USE/HX OF SCHIZOAFFECTIVE DISORDER Time Seen by Provider: 05/06/24 04:55 Source: patient Mode of arrival: ambulatory Limitations: no limitations Related Data Home Medications ?Medication ?Instructions ?Recorded ?Confirmed divalproex 500 mg tablet,delayed 1,000 mg PO BEDTIME 04/05/24 05/06/24 release propranolol 10 mg tablet 10 mg PO BID PRN anxiety 04/05/24 05/06/24 Previous Rx's ?Medication ?Instructions ?Recorded aripiprazole 400 mg suspension, 400 mg IM Q28D #1 ea 01/24/24 extended rel.intramuscular syringe (Gemini Betancur) benztropine 1 mg tablet 1 mg PO DAILY #0 tabs 04/12/24 paliperidone 6 mg tablet,extended 6 mg PO DAILY #0 tabs 04/12/24 release 24 hr (Invega) Allergies Allergy/AdvReac Type Severity Reaction Status Date / Time No Known Allergies Allergy Verified 05/06/24 02:24 [facility] Past Medical History Medical History Acute psychosis Elevated liver enzymes Adderall use disorder, mild, abuse History of cocaine use History of foot ulcer Schizophrenia Surgical History S/P ear surgery Family History Family History Brother Substance use disorder Bipolar disorder Maternal Grandmother Schizophrenia Paternal Grandmother Mental health disorder Mother Diabetes mellitus Anxiety disorder Maternal Uncle Bipolar disorder Alcoholism Father Essential hypertension Social History Social History Household Members: Family Household Members Other:: mother and her partner Housing: House Alcohol intake: never Patient Tobacco Use Status: Current everyday Tobacco user Tobacco use type: Cigarette Cigarette Packs Per Day: 1 Cigarettes Per Day: 20.0 Smoked in Last 30 Days: Yes e-Cigarette/Vaping Use: Never Used Use of substances other than those prescribed or required for medical reasons: Yes Substance Use Type: Crack/Cocaine and Marijuana Substance Use Frequency: Daily Last Used Substance: Just Prior to Admission Advance Directives: No Advance Directives Information Provided: Yes Do you have a plan to hurt others: No Plan service: No Current occupational status: unemployed Sexual orientation: Don't Know Cognitive needs: No Hearing needs: No Vision needs: Yes Physical Exam ED Vital Signs: Vital Signs - 24 hr 05/06/24 02:06 05/06/24 02:22 05/06/24 04:01 Temperature 97.8 F 97.8 F Pulse Rate 109 H 111 H Pulse Rate [Monitor] 111 H Respiratory Rate 16 27 H Blood Pressure 148/87 H 148/87 H Pulse Oximetry 97 Oxygen Delivery Method Room Air 05/06/24 14:46 Temperature 98.2 F Pulse Rate 112 H Pulse Rate [Monitor] Respiratory Rate 16 Blood Pressure 130/79 Pulse Oximetry 99 Oxygen Delivery Method Room Air BMI result Body Mass Index 31.0 Course Reevaluation(s) Reevaluation #1: seen by crisis cleared for disharge ,no SI Time: 16:11 Medications Administered Generic Name Dose Route Start Last Admin Trade Name Freq PRN Reason Stop Dose Admin Propranolol HCl 10 mg 05/06/24 09:15 05/06/24 16:06 Propranolol Hcl 10 Mg Tablet PO 10 mg BID PRN Administration anxiety Protocol Medical Decision Making Lab Data 05/06/24 02:58 05/06/24 02:58 Labs: Lab Results 05/06/24 05/06/24 05/06/24 Range/Units 02:58 04:32 04:59 WBC 8.7 (4.8-10.8) X10*3/uL RBC 4.46 L (4.60-5.80) X10*6/uL Hgb 14.2 (14.0-18.0) g/dl Hct 41.1 L (42.0-52.0) % MCV 92.2 (80.0-98.0) fL MCH 31.8 (27.0-33.0) pg MCHC 34.5 (31.0-36.0) g/dl RDW 12.4 (11.0-16.0) % Plt Count 248 (160-400) X10*3/uL MPV 9.4 (9.4-12.4) fL Immature Gran % (Auto) 0.3 (0.0-0.4) % Neut % (Auto) 77.7 H (45-73) % Lymph % (Auto) 16.0 L (20-40) % [place] % (Auto) 5.5 (2-11) % Eos % (Auto) 0.0 (0-4) % Baso % (Auto) 0.5 (0-2) % Lymph # (Auto) 1.4 (1.2-4.9) X10*3/uL [place] # (Auto) 0.5 (0.1-1.2) X10*3/uL Eos # (Auto) 0.0 (0.0-0.4) X10*3/uL Baso # (Auto) 0.0 (0.0-0.2) X10*3/uL Abs Immat Gran (auto) 0.03 (0.00-0.03) X10*3/uL Absolute Neuts (auto) 6.8 (2.0-8.3) x10*3/uL Absolute Nucleated RBC 0.000 (0.0-0.012) X10*3/uL Nucleated RBC % (auto) 0.0 (0.0-0.2) /100WBC Sodium 142 (135-145) mmol/L Potassium 4.4 D (3.3-5.1) mmol/L Chloride 107 (96-108) mmol/L Carbon Dioxide 27 (22-29) mmol/L Anion Gap 12 (12-20) BUN 12 (9-16) mg/dL Creatinine 1.09 (0.5-1.4) mg/dL Estim Creat Clear Calc 124.5 Estimated GFR > 60 Random Glucose 97 (60-115) mg/dL Calcium 9.4 (8.4-10.2) mg/dL Total Bilirubin 0.1 (0.0-1.0) mg/dL AST 18 (5-37) U/L ALT 12 (0-40) U/L Alkaline Phosphatase 55 (39-117) U/L Total Protein 7.3 (6.5-8.0) g/dL Albumin 4.1 (3.5-5.0) g/dL Urine Color Yellow Urine Appearance Clear Urine pH 7.0 (5.0-9.0) Ur Specific [place] 1.025 (1.005-1.025) Urine Protein Negative (Neg-Trace) mg/dL Urine Glucose (UA) Negative (Negative) mg/dL Urine Ketones Negative (Negative) mg/dL Urine Blood Negative (Negative) Urine Nitrite Negative (Negative) Ur Leukocyte Esterase Negative (Negative) Urine Opiates Screen Not Detected (Not Detect) Ur Buprenorphine Scrn Not Detected (Not Detect) ng/mL Ur Oxycodone Screen Not Detected (Not Detect) ng/mL Urine Methadone Screen Not Detected (Not Detect) ng/mL Urine Fentanyl Screen Not Detected (Not Detect) Ur Barbiturates Screen Not Detected (Not Detect) Valproic Acid 35.8 L (50.0-100.0) mcg/mL Ur Phencyclidine Scrn Not Detected (Not Detect) Ur Amphetamines Screen Not Detected (Not Detect) U Benzodiazepines Scrn Not Detected (Not Detect) Urine Cocaine Screen POSITIVE H (Not Detect) U Marijuana (THC) Screen POSITIVE H (Not Detect) Ethyl Alcohol < 10 mg/dL Discharge Plan Discharge Clinical Impression: Hallucination, visual, Polysubstance abuse Patient Disposition: Home, Self-Care Instructions: Polysubstance Abuse (ED) Prescriptions: No Action Abilify Maintena 400 mg Suspension,Extended Rel Syring 400 mg IM Q28D Qty: 1 0RF Patient Comments: Confirmed dose on 04/10/24 with Samira at [facility] Rx Instructions: Verified by mother [phone] divalproex 500 mg tablet,delayed release (DR/EC) 1,000 mg PO BEDTIME Rx Instructions: takes 500 mg only propranolol 10 mg tablet 10 mg PO BID PRN (Reason: anxiety) benztropine 1 mg Tablet 1 mg PO DAILY Qty: 0 0RF paliperidone [Invega] 6 mg Tablet Extended Release 24 Hr 6 mg PO DAILY Qty: 0 0RF Referrals: Physician,Unknown J [Primary Care Provider] - 3 days Print Language: Japanese
[2024-05-06 16:22] VITALS: BP 122/90; PULSE 84; RESP 14; TEMP 36.3; O2SAT 98
== END 2024-05-06 16:28 | disposition home or self-care (01) ==
PROVIDERS: Emergency Provider Emergency Medicine
DX: F25.9 Schizoaffective disorder, unspecified (principal); F14.10 Cocaine abuse, uncomplicated; Z79.899 Other long term (current) drug therapy; Z51.81 Encounter for therapeutic drug level monitoring
CPT/HCPCS: 36415; 80053; 80164; 80307; 81003; 85025; 99284; S9485

== ENCOUNTER 2024-05-14 19:54 | Emergency (ER) | payer MEDICARE, MEDICAID, SELFPAY ==
--- NOTE | 2024-05-14 | ECG_ITS ---
Test Reason : COCAINE USE Blood Pressure : */* mmHG Vent. Rate : 130 BPM Atrial Rate : 130 BPM P-R Int : 140 ms QRS Dur : 102 ms QT Int : 324 ms P-R-T Axes : 57 88 44 degrees QTcB Int : 476 ms Sinus tachycardia Otherwise normal ECG When compared with ECG of 04-Apr-2024 23:21, No significant change was found Referred By: Generic ED Physician Electronically Signed By: Juan Giron
[2024-05-14 20:03] VITALS: BP 146/97; BP 162/90; PULSE 128; PULSE 134; RESP 16; TEMP 36.4; O2SAT 96; O2SAT 98; BMI 29.7
--- NOTE | 2024-05-14 20:16 | ED.GENADULT ---
HPI - General Adult General Chief complaint: General Medical Stated complaint: pt did bag of coke, police custudy not restrained Time Seen by Provider: 05/14/24 20:01 History of Present Illness HPI narrative: Patient is a 28-year-old male presents today with having after running from police. Patient was stress passing a neighborhood. [place] was [place]. Patient was found having cocaine on him. Patient also stated that he use large amount of crack cocaine today. Denies any suicidal homicidal ideation. Stated he used the cocaine recreational only. Denies drinking alcohol denies any PCP. Denies any other drugs. Patient is from home. Related Data Home Medications ?Medication ?Instructions ?Recorded ?Confirmed divalproex 500 mg tablet,delayed 1,000 mg PO BEDTIME 04/05/24 05/06/24 release propranolol 10 mg tablet 10 mg PO BID PRN anxiety 04/05/24 05/06/24 Previous Rx's ?Medication ?Instructions ?Recorded aripiprazole 400 mg suspension, 400 mg IM Q28D #1 ea 01/24/24 extended rel.intramuscular syringe (Gemini Betancur) benztropine 1 mg tablet 1 mg PO DAILY #0 tabs 04/12/24 paliperidone 6 mg tablet,extended 6 mg PO DAILY #0 tabs 04/12/24 release 24 hr (Invega) penicillin V potassium 500 mg 500 mg PO TID #30 tabs 05/15/24 tablet Allergies Allergy/AdvReac Type Severity Reaction Status Date / Time No Known Allergies Allergy Verified 05/14/24 20:13 Review of Systems Review of Systems: Positive cocaine use Yes all other systems are reviewed and are negative [facility] Past Medical History Attestation statement: The following information was validated with the patient. Medical History Acute psychosis Elevated liver enzymes Adderall use disorder, mild, abuse History of cocaine use History of foot ulcer Schizophrenia Surgical History S/P ear surgery Family History Family History Brother Substance use disorder Bipolar disorder Maternal Grandmother Schizophrenia Paternal Grandmother Mental health disorder Mother Diabetes mellitus Anxiety disorder Maternal Uncle Bipolar disorder Alcoholism Father Essential hypertension Social History Social History Household Members: Family Household Members Other:: mother and her partner Housing: House Alcohol intake: current Alcohol intake frequency: does not drink Patient Tobacco Use Status: Current everyday Tobacco user Tobacco use type: Cigarette Cigarette Packs Per Day: 1 Cigarettes Per Day: 20.0 e-Cigarette/Vaping Use: Never Used Use of substances other than those prescribed or required for medical reasons: Yes Substance Use Type: Crack/Cocaine Substance Use Frequency: Chronic Longstanding Advance Directives: No Advance Directives Information Provided: No Do you have a plan to hurt others: No Plan service: No Current occupational status: unemployed Sexual orientation: Don't Know Cognitive needs: No Hearing needs: No Vision needs: Yes Physical Exam ED Vital Signs: Vital Signs - 24 hr 05/14/24 20:03 05/14/24 22:57 Temperature 97.6 F 98.1 F Pulse Rate 134 H 115 H Respiratory Rate 16 22 H Blood Pressure 146/97 H 130/75 Pulse Oximetry 96 97 Oxygen Delivery Method Room Air Room Air BMI result Body Mass Index 29.7 Appearance: Alert. Oriented X3. No acute distress. Eyes: Pupils equal, round and reactive to light. ENT: Pharynx normal. Neck: Normal inspection. Neck supple. No lymph nodes noted. No crepitus CVS: Tachycardic. Pulses normal. Normal S1 and S2 Respiratory: No respiratory distress. Breath sounds normal. No Wheezing. No rales Abdomen: Soft and nontender. No rigidity. No distention. good BS x4 Skin: Skin warm and dry. Normal skin color. Normal skin turgor. Extremities: No lower extremity edema. Neurovascular intact to all extremities. No Lacerations. No Rash Neuro: Oriented X 3. No motor deficit. No sensory deficit. Moving all extermities. No slurred speech Medications Administered Discontinued Medications Generic Name Dose Route Start Last Admin Trade Name Freq PRN Reason Stop Dose Admin Diazepam 5 mg 05/14/24 22:05 05/14/24 22:25 Diazepam 10 Mg/2 Ml Cartridge IVPUSH 05/14/24 22:06 5 mg STAT STA Administration Sodium Chloride 1,000 mls @ 999 mls/hr 05/14/24 20:30 05/14/24 21:51 Ns IV 05/14/24 21:30 Infused .Q1H1M ORA Infusion Sodium Chloride 1,000 mls @ 999 mls/hr 05/14/24 20:30 05/14/24 21:52 Ns IV 05/14/24 21:30 Infused .Q1H1M ORA Infusion Medical Decision Making Medical Decision Making [facility] Narrative: 28-year-old male with a history of schizophrenia. Presented today after using large amount of cocaine. Patient denies any suicidal homicidal ideation. Did cocaine for recreation of reasons. Will give IV fluids. My interpretation of patient's EKG showed a sinus rhythm heart rate is 130 VT QRS QTC within normal limits there are signs of LVH noted. When compared to a previous EKG there is no significant changes. Patient given IV fluids. Monitoring. While patient in ED also complaining of coughing some sore throat. Patient COVID flu RSV were negative. Strep was actually positive. Was started on penicillin. A dose of Valium was given for anxiety. Symptomatically feels improved heart rate is down to 115 no distress IV fluids given. Patient to be discharged home CPK was 700 no evidence of rhabdo. Differential Diagnosis Differential Diagnoses: The differential diagnosis associated with the presentation includes Cocaine abuse, dehydration, rhabdo, pharyngitis Admission/Observation Consideration of admission/observation: Escalation of care including admission/observation considered Lab Data [facility] Lab Attestation statement: I reviewed the patient's lab results. 05/14/24 20:32 05/14/24 20:32 Labs: Lab Results 05/14/24 05/14/24 05/14/24 Range/Units 20:32 20:54 21:57 WBC 10.2 (4.8-10.8) X10*3/uL RBC 4.48 L (4.60-5.80) X10*6/uL Hgb 14.1 (14.0-18.0) g/dl Hct 41.7 L (42.0-52.0) % MCV 93.1 (80.0-98.0) fL MCH 31.5 (27.0-33.0) pg MCHC 33.8 (31.0-36.0) g/dl RDW 12.1 (11.0-16.0) % Plt Count 208 (160-400) X10*3/uL MPV 9.9 (9.4-12.4) fL Immature Gran % (Auto) 0.2 (0.0-0.4) % Neut % (Auto) 84.4 H (45-73) % Lymph % (Auto) 8.7 L (20-40) % Beaver % (Auto) 6.5 (2-11) % Eos % (Auto) 0.0 (0-4) % Baso % (Auto) 0.2 (0-2) % Lymph # (Auto) 0.9 L (1.2-4.9) X10*3/uL Beaver # (Auto) 0.7 (0.1-1.2) X10*3/uL Eos # (Auto) 0.0 (0.0-0.4) X10*3/uL Baso # (Auto) 0.0 (0.0-0.2) X10*3/uL Abs Immat Gran (auto) 0.02 (0.00-0.03) X10*3/uL Absolute Neuts (auto) 8.6 H (2.0-8.3) x10*3/uL Absolute Nucleated RBC 0.000 (0.0-0.012) X10*3/uL Nucleated RBC % (auto) 0.0 (0.0-0.2) /100WBC Sodium 139 (135-145) mmol/L Potassium 4.6 (3.3-5.1) mmol/L Chloride 106 (96-108) mmol/L Carbon Dioxide 26 (22-29) mmol/L Anion Gap 12 (12-20) BUN 13 (9-16) mg/dL Creatinine 0.89 (0.5-1.4) mg/dL Estim Creat Clear Calc 149.3 Estimated GFR > 60 Random Glucose 95 (60-115) mg/dL Calcium 8.6 D (8.4-10.2) mg/dL Total Bilirubin 0.3 (0.0-1.0) mg/dL AST 27 (5-37) U/L ALT 18 (0-40) U/L Alkaline Phosphatase 53 (39-117) U/L Total Creatine Kinase 711 H (38-174) U/L Total Protein 7.3 (6.5-8.0) g/dL Albumin 4.2 (3.5-5.0) g/dL Salicylates < 5.0 L (15-30) mg/dL Acetaminophen < 3 (<30) mcg/mL Ethyl Alcohol < 10 mg/dL Influenza Type A (PCR) NEGATIVE (Negative) Influenza Type B (PCR) NEGATIVE (Negative) RSV RNA Qual (PCR) NEGATIVE (Negative) SARS-CoV-2 RNA (RT-PCR) NEGATIVE (Negative) S. pyogenes GrpA LEANNE Positive A (Negative) External Record Review External record reviewed: Outpatient record History of polysubstance abuse Prescription Management Antibiotics prescribed Chronic Conditions Schizophrenia Social Determinants Patient?s care significantly limited by Social Determinants of Health including: Problems related to primary support group Discharge Plan Discharge Clinical Impression: Schizophrenia, Cocaine use disorder, Strep pharyngitis Patient Disposition: Home, Self-Care Instructions: Strep Throat (DC), Cocaine Abuse (ED), Schizophrenia (ED) Additional Instructions: Please go to detox. Please take all your antibiotics. Prescriptions: New penicillin V potassium 500 mg tablet 500 mg PO TID Qty: 30 0RF No Action Abilify Maintena 400 mg Suspension,Extended Rel Syring 400 mg IM Q28D Qty: 1 0RF Patient Comments: Confirmed dose on 04/10/24 with Samira at [facility] Rx Instructions: Verified by mother [phone] divalproex 500 mg tablet,delayed release (DR/EC) 1,000 mg PO BEDTIME Rx Instructions: takes 500 mg only propranolol 10 mg tablet 10 mg PO BID PRN (Reason: anxiety) benztropine 1 mg Tablet 1 mg PO DAILY Qty: 0 0RF paliperidone [Invega] 6 mg Tablet Extended Release 24 Hr 6 mg PO DAILY Qty: 0 0RF Referrals: Physician,None [Primary Care Provider] - 05/17/24 Print Language: Armenian
[2024-05-14 20:37] LABS: Basophils Percent Auto 0.2 % (0-2); Hematocrit 41.7 % (42.0-52.0); Hemoglobin 14.1 g/dl (14.0-18.0); Imm Gran Abs Auto 0.02 X10*3/uL (0.00-0.03); Imm Gran Pct Auto 0.2 % (0.0-0.4); Lymphocytes Absolute Auto 0.9 X10*3/uL (1.2-4.9); Lymphocytes Percent Auto 8.7 % (20-40); MANUAL DIFF FLAG NO; Mean Corpuscular HGB Conc 33.8 g/dl (31.0-36.0); Mean Corpuscular Hemoglobin 31.5 pg (27.0-33.0); Mean Corpuscular Volume 93.1 fL (80.0-98.0); Mean Platelet Volume 9.9 fL (9.4-12.4); Monocytes Absolute Auto 0.7 X10*3/uL (0.1-1.2); Monocytes Percent Auto 6.5 % (2-11); Neutrophils Absolute Auto 8.6 x10*3/uL (2.0-8.3); Neutrophils Percent Auto 84.4 % (45-73); Platelet Count 208 X10*3/uL (160-400); Red Blood Count 4.48 X10*6/uL (4.60-5.80); Red Cell Distribution Width 12.1 % (11.0-16.0); White Blood Count 10.2 X10*3/uL (4.8-10.8)
[2024-05-14] MEDS: 0.9 % Sodium Chloride 1,000 ML 999 ML IV ×2 (20:43)
--- NOTE | 2024-05-14 20:50 | PC.NURSE ---
medicated per mar.
--- NOTE | 2024-05-14 20:50 | PC.NURSE ---
pt tar heat exchanger cleaner to hospital attire, ekg, labs completed. Pt placed on bedside monitor.
[2024-05-14 20:55] LABS: Alanine Aminotransferase 18 U/L (0-40); Albumin Level 4.2 g/dL (3.5-5.0); Alkaline Phosphatase 53 U/L (39-117); Anion Gap 12 (12-20); Aspartate Amino Transferase 27 U/L (5-37); Bilirubin Total 0.3 mg/dL (0.0-1.0); Blood Urea Nitrogen 13 mg/dL (9-16); Calcium 8.6 mg/dL (8.4-10.2); Carbon Dioxide 26 mmol/L (22-29); Chloride 106 mmol/L (96-108); Creatinine Clr Calc Pharmacy 149.3; Estimated Glomerular Filt Rate > 60; Ethanol < 10 mg/dL; Glucose Random 95 mg/dL (60-115); Potassium 4.6 mmol/L (3.3-5.1); Sodium 139 mmol/L (135-145); Total Protein 7.3 g/dL (6.5-8.0)
[2024-05-14 21:26] LABS: Acetaminophen LAB < 3 mcg/mL (<30); Salicylate < 5.0 mg/dL (15-30)
[2024-05-14 22:15] LABS: IDNOW Serial# 6674DD1D; Strep A Nucleic Acid Positive (Negative)
[2024-05-14] MEDS: diazePAM 10 MG/2 ML CARTRIDGE 5 MG IVPUSH (22:25)
[2024-05-14 22:45] LABS: Influenza A PCR NEGATIVE (Negative); Influenza B PCR NEGATIVE (Negative); Resp Syncy Virus RNA Qual PCR NEGATIVE (Negative); SARS COV2 PCR INHOUSE NEGATIVE (Negative)
[2024-05-14 22:57] VITALS: BP 130/75; PULSE 115; RESP 22; TEMP 36.7; O2SAT 97
--- NOTE | 2024-05-15 00:21 | PC.NURSE ---
pt resting in bed no sign of distress or chest pain at this time.
[2024-05-15] MEDS: Penicillin V Potassium 250 MG TABLET 500 MG PO (01:02)
[2024-05-15 01:09] VITALS: BP 135/68; PULSE 112; RESP 20; TEMP 36.4; O2SAT 99
--- NOTE | 2024-05-15 01:09 | PC.NURSE ---
pt medicated per mar.
--- NOTE | 2024-05-15 01:10 | PC.NURSE ---
pt belongings returned.
[2024-05-15 01:12] VITALS: BP 135/68; PULSE 112; RESP 20; TEMP 36.4; O2SAT 99
== END 2024-05-15 01:12 | disposition home or self-care (01) ==
PROVIDERS: Emergency Provider Emergency Medicine Emergency Medical Services
DX: J02.0 Streptococcal pharyngitis (principal); F25.9 Schizoaffective disorder, unspecified; F14.10 Cocaine abuse, uncomplicated; R00.0 Tachycardia, unspecified; R11.0 Nausea; Z51.81 Encounter for therapeutic drug level monitoring; Z79.899 Other long term (current) drug therapy; Z03.818 Encounter for observation for suspected exposure to other biological agents ruled out
CPT/HCPCS: 0241U; 36415; 80053; 80143; 80179; 80307; 82550; 85025; 87651; 93005; 96361; 96374; 99284; 99285; J3360

== ENCOUNTER → 2024-05-14 20:17 | Outpatient (BNV) | payer MEDICARE, MEDICAID, SELFPAY | PROVIDERS: Emergency Provider Emergency Medicine Emergency Medical Services; Visit Provider Internal Medicine Cardiovascular Disease | DX: R00.0 Tachycardia, unspecified (principal) | CPT/HCPCS: 93010 ==

== ENCOUNTER 2024-08-03 00:47 | Emergency (ER) | payer MEDICARE, MEDICAID, SELFPAY ==
--- NOTE | 2024-08-03 00:55 | ED_ITS ---
HPI - Overdose General Chief Complaint: Psychiatric Symptoms Stated Complaint: Polysubstance abuse confirms cocaine Bp220/120 Time Seen by Provider: 08/03/24 00:51 Source: patient and EMS Mode of arrival: EMS Limitations: no limitations History of Present Illness ED Provider: HPI Narrative: Patient's history of schizophrenia cocaine use Adderall abuse was at [facility] 2 days ago today comes after used cocaine and being paranoid denies any hallucinations or delusions patient denied any SI or HI acting vaguely noted to be masturbating in the ER Related Data Home Medications ?Medication ?Instructions ?Recorded ?Confirmed divalproex 500 mg tablet,delayed 1,000 mg PO BEDTIME 04/05/24 08/03/24 release propranolol 10 mg tablet 10 mg PO BID PRN anxiety 04/05/24 08/03/24 benztropine 1 mg tablet 1 mg PO BID 08/03/24 08/03/24 cholecalciferol (vitamin D3) 25 25 mcg PO DAILY 08/03/24 08/03/24 mcg (1,000 unit) tablet omeprazole 20 mg capsule,delayed 20 mg PO DAILY 08/03/24 08/03/24 release trazodone 100 mg tablet 100 mg PO BEDTIME 08/03/24 08/03/24 Previous Rx's ?Medication ?Instructions ?Recorded aripiprazole 400 mg suspension, 400 mg IM Q28D #1 ea 01/24/24 extended rel.intramuscular syringe (Gemini Love) paliperidone 6 mg tablet,extended 6 mg PO DAILY #0 tabs 04/12/24 release 24 hr (Invega) Allergies Allergy/AdvReac Type Severity Reaction Status Date / Time No Known Allergies Allergy Verified 08/03/24 01:03 Review of Systems 2 Review of Systems: Yes all other systems are reviewed and are negative PMFSH Past Medical History Medical History Acute psychosis Elevated liver enzymes Adderall use disorder, mild, abuse History of cocaine use History of foot ulcer Schizophrenia Surgical History S/P ear surgery Family History Family History Brother Substance use disorder Bipolar disorder Maternal Grandmother Schizophrenia Paternal Grandmother Mental health disorder Mother Diabetes mellitus Anxiety disorder Maternal Uncle Bipolar disorder Alcoholism Father Essential hypertension Social History Social History Household Members: Family Household Members Other:: mother and her partner Housing: House Alcohol intake: current Alcohol intake frequency: does not drink Patient Tobacco Use Status: Current everyday Tobacco user Tobacco use type: Cigarette Cigarette Packs Per Day: 1 Cigarettes Per Day: 20.0 e-Cigarette/Vaping Use: Never Used Substance Use Type: Crack/Cocaine Advance Directives: No Advance Directives Information Provided: No Do you have a plan to hurt others: No Plan service: No Current occupational status: unemployed Sexual orientation: Don't Know Cognitive needs: No Hearing needs: No Vision needs: Yes Physical Exam 2 Vital Signs: Vital Signs: Last Vital Signs Temp 98.6 F 08/03/24 01:21 Pulse 99 08/03/24 01:21 Resp 18 08/03/24 01:21 BP 160/80 H 08/03/24 01:21 Pulse Ox 95 08/03/24 01:21 O2 Del Method Room Air 08/03/24 01:21 BMI result Body Mass Index 29.5 Appearance: Alert. Oriented X3. No acute distress. High on cocaine Eyes: PERRLA, No Nystagmus ENT: Pharynx normal. Oral Mucosa moist Neck: Normal inspection. Neck supple. CVS: Normal heart rate and rhythm. Pulses normal. Respiratory: No respiratory distress. Equal air entry bilateral, no wheezing/rales/rhonchi Abdomen: Soft and nontender. Bowel sounds are present, no mass palpable, no CVA tenderness Skin: Skin warm and dry. Normal skin color. Normal skin turgor. Extremities: No lower extremity edema. No calf tenderness Neuro: Oriented X 3. No motor deficit. No sensory deficit.No cerebellar signs , cranial nerves II-XII intact Course Course Course Narrative: Time: 07:21 Date: 08/03/24 Provider: Nayana Davis DO Patient in physician observation for psychiatric evaluation.? No acute events reported overnight. No current complaints. VS stable.? pending CARE team evaluation. Will continue to monitor. Reevaluation(s) Reevaluation #1: Time: 09:56 Date: 08/03/24 Provider: Nayana Davis DO Physician observation ended at 956am. Patient has been cleared for discharge by the CARE team. Will follow up as an outpatient. at baseline, family feels comfortable with DC Medications Administered Discontinued Medications Generic Name Dose Route Start Last Admin Trade Name Bradly PRN Reason Stop Dose Admin Olanzapine 10 mg 08/03/24 03:46 08/03/24 03:57 Olanzapine Odt 10 Mg Tab.Rapdis TRANSLINGU 08/03/24 03:47 10 mg ONCE ONE Administration Trazodone HCl 50 mg 08/03/24 02:51 08/03/24 03:20 Trazodone Hcl 50 Mg Tablet PO 08/03/24 02:52 Not Given ONCE ONE Trazodone HCl 50 mg 08/03/24 03:23 08/03/24 03:26 Trazodone Hcl 50 Mg Tablet PO 08/03/24 03:24 50 mg ONCE ONE Administration Medical Decision Making Medical Decision Making MDM Narrative: Patient's schizophrenia with polysubstance abuse paranoid on arrival will get care team involved Lab Data [facility] Lab Attestation statement: I reviewed the patient's lab results. 08/03/24 01:36 08/03/24 01:36 Labs: Lab Results 08/03/24 08/03/24 Range/Units 01:36 08:05 WBC 7.1 (4.8-10.8) X10*3/uL RBC 4.22 L (4.60-5.80) X10*6/uL Hgb 13.2 L (14.0-18.0) g/dl Hct 37.2 L (42.0-52.0) % MCV 88.2 (80.0-98.0) fL MCH 31.3 (27.0-33.0) pg MCHC 35.5 (31.0-36.0) g/dl RDW 11.9 (11.0-16.0) % Plt Count 197 (160-400) X10*3/uL MPV 9.2 L (9.4-12.4) fL Immature Gran % (Auto) 0.6 H (0.0-0.4) % Neut % (Auto) 63.3 (45-73) % Lymph % (Auto) 24.4 (20-40) % Alexander % (Auto) 10.4 (2-11) % Eos % (Auto) 0.7 (0-4) % Baso % (Auto) 0.6 (0-2) % Lymph # (Auto) 1.7 (1.2-4.9) X10*3/uL Alexander # (Auto) 0.7 (0.1-1.2) X10*3/uL Eos # (Auto) 0.1 (0.0-0.4) X10*3/uL Baso # (Auto) 0.0 (0.0-0.2) X10*3/uL Abs Immat Gran (auto) 0.04 H (0.00-0.03) X10*3/uL Absolute Neuts (auto) 4.5 (2.0-8.3) x10*3/uL Absolute Nucleated RBC 0.000 (0.0-0.012) X10*3/uL Nucleated RBC % (auto) 0.0 (0.0-0.2) /100WBC Sodium 144 (135-145) mmol/L Potassium 3.4 D (3.3-5.1) mmol/L Chloride 109 H (96-108) mmol/L Carbon Dioxide 26 (22-29) mmol/L Anion Gap 12 (12-20) BUN 13 (9-16) mg/dL Creatinine 0.88 (0.5-1.4) mg/dL Estim Creat Clear Calc 136.6 Estimated GFR > 60 Random Glucose 136 H (60-115) mg/dL Calcium 9.1 (8.4-10.2) mg/dL Magnesium 1.6 (1.6-2.6) mg/dL Total Bilirubin 0.2 (0.0-1.0) mg/dL AST 105 H (5-37) U/L ALT 45 H (0-40) U/L Alkaline Phosphatase 65 (39-117) U/L Total Protein 6.7 (6.5-8.0) g/dL Albumin 4.1 (3.5-5.0) g/dL Urine Opiates Screen Not Detected (Not Detect) Ur Buprenorphine Scrn Not Detected (Not Detect) ng/mL Ur Oxycodone Screen Not Detected (Not Detect) ng/mL Urine Methadone Screen Not Detected (Not Detect) ng/mL Urine Fentanyl Screen Not Detected (Not Detect) Ur Barbiturates Screen Not Detected (Not Detect) Ur Phencyclidine Scrn Not Detected (Not Detect) Ur Amphetamines Screen Not Detected (Not Detect) U Benzodiazepines Scrn POSITIVE H (Not Detect) Urine Cocaine Screen POSITIVE H (Not Detect) U Marijuana (THC) Screen POSITIVE H (Not Detect) Ethyl Alcohol < 10 mg/dL Discharge Plan Discharge Clinical Impression: History of cocaine use Drug-induced psychotic disorder Qualifiers: Complication of substance-induced condition: with unspecified complication Q ualified Code(s): F19.959 - Other psychoactive substance use, unspecified with psychoactive substance-induced psychotic disorder, unspecified Patient Disposition: Home, Self-Care Instructions: Cocaine Abuse (ED), Mood Disorders (ED) Additional Instructions: You were seen in our Emergency Department today for treatment of a behavioral health issue. It is important after your visit that you follow up with either your behavioral health provider or a primary care doctor within 7 days.? If you have trouble finding a therapist you can reach out to [address] [phone] [facility] [place] [facility] can be reached 7 days a week 24 hours a day.? Call [phone] to speak with someone.? Return for any worsening symptoms or concerns such as thoughts of self harm or harm to others. Please call 911 if you feel your mental health is worsening.? Prescriptions: No Action Abilify Maintena 400 mg Suspension,Extended Rel Syring 400 mg IM Q28D Qty: 1 0RF Patient Comments: Confirmed dose on 04/10/24 with Samira at [facility] Rx Instructions: Verified by mother [phone] divalproex 500 mg tablet,delayed release (DR/EC) 1,000 mg PO BEDTIME Rx Instructions: per pharmacy takes 1000mg propranolol 10 mg tablet 10 mg PO BID PRN (Reason: anxiety) paliperidone [Invega] 6 mg Tablet Extended Release 24 Hr 6 mg PO DAILY Qty: 0 0RF benztropine 1 mg tablet 1 mg PO BID trazodone 100 mg tablet 100 mg PO BEDTIME omeprazole 20 mg capsule,delayed release(DR/EC) 20 mg PO DAILY cholecalciferol (vitamin D3) 25 mcg (1,000 unit) tablet 25 mcg PO DAILY Interventions: [place]-Suicide Risk Severity Scale Last Done: 08/03/24 06:06 Print Language: Cymro
[2024-08-03 00:59] VITALS: BP 220/120; PULSE 110; O2SAT 98; BMI 29.5
--- NOTE | 2024-08-03 01:09 | ECG_ITS ---
Test Reason : etoh/substance Blood Pressure : */* mmHG Vent. Rate : 113 BPM Atrial Rate : 113 BPM P-R Int : 160 ms QRS Dur : 96 ms QT Int : 340 ms P-R-T Axes : 52 65 59 degrees QTcB Int : 466 ms Sinus tachycardia Possible Left atrial enlargement Borderline ECG When compared with ECG of 14-May-2024 20:17, No significant change was found Referred By: Peter Francis Electronically Signed By: LAURA HERNANDEZ
[2024-08-03 01:21] VITALS: BP 160/80; PULSE 99; RESP 18; TEMP 37; O2SAT 95
[2024-08-03 01:40] LABS: MANUAL DIFF FLAG NO
[2024-08-03 01:41] LABS: Basophils Percent Auto 0.6 % (0-2); Eosinophils Absolute Auto 0.1 X10*3/uL (0.0-0.4); Eosinophils Percent Auto 0.7 % (0-4); Hematocrit 37.2 % (42.0-52.0); Hemoglobin 13.2 g/dl (14.0-18.0); Imm Gran Abs Auto 0.04 X10*3/uL (0.00-0.03); Imm Gran Pct Auto 0.6 % (0.0-0.4); Lymphocytes Absolute Auto 1.7 X10*3/uL (1.2-4.9); Lymphocytes Percent Auto 24.4 % (20-40); Mean Corpuscular HGB Conc 35.5 g/dl (31.0-36.0); Mean Corpuscular Hemoglobin 31.3 pg (27.0-33.0); Mean Corpuscular Volume 88.2 fL (80.0-98.0); Mean Platelet Volume 9.2 fL (9.4-12.4); Monocytes Absolute Auto 0.7 X10*3/uL (0.1-1.2); Monocytes Percent Auto 10.4 % (2-11); Neutrophils Absolute Auto 4.5 x10*3/uL (2.0-8.3); Neutrophils Percent Auto 63.3 % (45-73); Platelet Count 197 X10*3/uL (160-400); Red Blood Count 4.22 X10*6/uL (4.60-5.80); Red Cell Distribution Width 11.9 % (11.0-16.0); White Blood Count 7.1 X10*3/uL (4.8-10.8)
[2024-08-03 02:09] LABS: Alanine Aminotransferase 45 U/L (0-40); Albumin Level 4.1 g/dL (3.5-5.0); Alkaline Phosphatase 65 U/L (39-117); Anion Gap 12 (12-20); Aspartate Amino Transferase 105 U/L (5-37); Bilirubin Total 0.2 mg/dL (0.0-1.0); Blood Urea Nitrogen 13 mg/dL (9-16); Calcium 9.1 mg/dL (8.4-10.2); Carbon Dioxide 26 mmol/L (22-29); Chloride 109 mmol/L (96-108); Creatinine Clr Calc Pharmacy 136.6; Estimated Glomerular Filt Rate > 60; Ethanol < 10 mg/dL; Glucose Random 136 mg/dL (60-115); Magnesium 1.6 mg/dL (1.6-2.6); Potassium 3.4 mmol/L (3.3-5.1); Sodium 144 mmol/L (135-145); Total Protein 6.7 g/dL (6.5-8.0)
--- NOTE | 2024-08-03 02:10 | PC.NURSE ---
pt extremely hyper sexual with female staff continues to call this rn into pt room to whisper needs into rn ear. this rn made md and charge master coordinator aware pt refusing to provide urine sample continues to touch self inappropriately while in presence of female staff members
--- NOTE | 2024-08-03 02:32 | PC.NURSE ---
client wandering on unit making several requests of staff declined to provide urine at this time. patient makes requests for adderall and discharge. asks for toothbrush and toothpaste.
--- NOTE | 2024-08-03 03:21 | PC.NURSE ---
challenging to redirect unpleasant.
[2024-08-03] MEDS: traZODone HCL 50 MG TABLET PO (03:26)
[2024-08-03] MEDS: OLANZapine ODT 10 MG TAB.RAPDIS TRANSLINGU (03:57)
--- NOTE | 2024-08-03 04:13 | PC.NURSE ---
frequent noncompliant behavior, wandering to anothers room and laying down. required security to assist with redirection
--- NOTE | 2024-08-03 04:45 | PC.NURSE ---
client remains noncompliat standing and staring at staff, refusing redirection.
--- NOTE | 2024-08-03 05:23 | PC.NURSE ---
patient contiues seemingly sometimes thought blocking, noncompliant, asking for shower, pen and paper, getting stuck in one spot standing and not following staff direction, silent and motionless. at this time patient adjourned to wait in his own dorrway, then soon thereafter comes back to nurses station asking questions.
--- NOTE | 2024-08-03 05:28 | PC.NURSE ---
'hey can you tunr on the tv (given criteria then stares blankly)
--- NOTE | 2024-08-03 08:08 | PC.NURSE ---
Patients mother called asking for update on patient. Vidya stating that patient was released from a hospital in [place] on tuesday (was there on a [address]) and then came home and bought $1000 worth of cocaine. Per Mom patient then overdosed on cocaine on tuesday and was brought to [facility] from which patient left ama. Patient is followed by [facility] but mom states him living with her is not a good living situation- she does not expect ED to find alternate placement but states patient is not well and has been knocking on door in their condo which has resulted in the PD being called. States he has not slept in days and that he did 2 lines of cocaine last night before he called the PD to bring him to the hospital
[2024-08-03 08:24] LABS: Amphetamine Screen Urine Not Detected (Not Detect); Barbiturates, Urine Not Detected (Not Detect); Benzodiazepines Screen Urine POSITIVE (Not Detect); Buprenorphine Scr Not Detected (Not Detect); Cannabinoid Screen Urine POSITIVE (Not Detect); Cocaine Screen Urine POSITIVE (Not Detect); Fentanyl, urine Not Detected (Not Detect); Methadone Screen, Urine Not Detected (Not Detect); Opiate Screen Urine Not Detected (Not Detect); Oxycodone Screen Urine Not Detected (Not Detect); Phencyclidine Screen Urine Not Detected (Not Detect)
--- NOTE | 2024-08-03 09:35 | PC.NURSE ---
Med rec completed by calling [facility] on [address] in [place] , patient has not picked up invega , per pharmacy invega dose is 234mg monthly
--- NOTE | 2024-08-03 09:58 | MHC.CARE ---
Pt does not meet criteria for IPLOC and will be discharged. Provider in agreement.
[2024-08-03 10:19] VITALS: BP 160/80; PULSE 99; RESP 18; TEMP 37; O2SAT 95
== END 2024-08-03 10:23 | disposition home or self-care (01) ==
PROVIDERS: Emergency Provider Internal Medicine; PCP Internal Medicine
DX: F14.10 Cocaine abuse, uncomplicated (principal); F19.159 Other psychoactive substance abuse with psychoactive substance-induced psychotic disorder, unspecified; F20.9 Schizophrenia, unspecified; F41.9 Anxiety disorder, unspecified; F15.10 Other stimulant abuse, uncomplicated; F17.210 Nicotine dependence, cigarettes, uncomplicated; Z79.899 Other long term (current) drug therapy
CPT/HCPCS: 36415; 80053; 80307; 83735; 85025; 93005; 99285; S9485

== ENCOUNTER → 2024-08-03 01:09 | Outpatient (BNV) | payer MEDICARE, MEDICAID, SELFPAY | PROVIDERS: Emergency Provider Internal Medicine; PCP Internal Medicine; Visit Provider Internal Medicine | DX: R00.0 Tachycardia, unspecified (principal) | CPT/HCPCS: 93010 ==

== ENCOUNTER 2024-08-08 20:02 | Emergency (ER) | payer MEDICARE, MEDICAID, SELFPAY ==
[2024-08-08 20:05] VITALS: BP 190/120; PULSE 114; O2SAT 98
[2024-08-08 20:06] VITALS: BP 131/95; PULSE 115; RESP 16; TEMP 37.2; O2SAT 96; BMI 29.5
--- OUTSIDE RECORDS SUMMARY | 2024-08-08 20:26 | XMS_ITS | Patient Health Record ---
Author Organization [facility] Address [address] [place] [address] Care Team Providers Care Drill Press Hand Name Role Phone PCP, Does not have a Primary Care Provider Unava ilable Reason For Referral No Information Medications Medication SIG (Take, Route, Fr equency, Duration) Notes Start Date End Date Status Clotrimazole 1 % 1 application to aff ected area Externally Twice a day for 28 day(s) Active Vitamin D3 5000 UNIT as directed Orally Once a day for 30 day(s) 01/03/2019 Active Social History Tobacco Use: Social History Observation Description Date Details (start date - stop date) Current Smoker NA - NA Tobacco Use/Smoking Question Answer Notes You are a current smoker How often do you smoke cigarettes? every day How many cigarettes a day do you smoke? 6-10 Problems Problem Type SNOMED Code ICD Code Onset Dates Problem Status W/U Status Risk Notes Problem Vitamin D deficiency (85084036) Vitamin D deficiency, unspecified (E55.9) Active confirmed Plan Of Treatment No Information Insurance Providers Payer Name Payer Address Payer Phone Subscriber Number Group Number Insured Name Patient Relationship to Insured Coverage Start Date Coverage End Date [employer] [place] [address] [place] [phone] [id number] Roberto Barrientos Self - patient is the insured
[2024-08-08 21:50] VITALS: BP 131/80; PULSE 109; RESP 18; TEMP 37.3; O2SAT 97
--- NOTE | 2024-08-08 22:54 | ED.PSYCH ---
HPI - Psych General Chief Complaint: ETOH/Substance Use Stated Complaint: used cocaine 2 hrs ago Time Seen by Provider: 08/08/24 21:08 Source: patient and EMS Mode of arrival: EMS Limitations: no limitations History of Present Illness ED Provider: Dr. Beba Braden HPI Narrative: Patient comes to the emergency room complaining of cocaine abuse. According to EMS, the patient's mother wanted the patient to get checked out. Patient reportedly used cocaine, 150 dollars a proximally in cost. Patient calm, cooperative, denies SI or HI. Patient states that he feels well. Patient just requesting a regular checkup which was requested also by his parents. At this time, patient states that he is a bit anxious, initially patient asked if I can give him a month's worth prescription of Adderall and then patient requested a 1 time dose of Ativan. Related Data Home Medications ?Medication ?Instructions ?Recorded ?Confirmed divalproex 500 mg tablet,delayed 1,000 mg PO BEDTIME 04/05/24 08/03/24 release propranolol 10 mg tablet 10 mg PO BID PRN anxiety 04/05/24 08/03/24 benztropine 1 mg tablet 1 mg PO BID 08/03/24 08/03/24 cholecalciferol (vitamin D3) 25 25 mcg PO DAILY 08/03/24 08/03/24 mcg (1,000 unit) tablet omeprazole 20 mg capsule,delayed 20 mg PO DAILY 08/03/24 08/03/24 release trazodone 100 mg tablet 100 mg PO BEDTIME 08/03/24 08/03/24 Previous Rx's ?Medication ?Instructions ?Recorded aripiprazole 400 mg suspension, 400 mg IM Q28D #1 ea 01/24/24 extended rel.intramuscular syringe (Gemini Betancur) paliperidone 6 mg tablet,extended 6 mg PO DAILY #0 tabs 04/12/24 release 24 hr (Invega) Allergies Allergy/AdvReac Type Severity Reaction Status Date / Time No Known Allergies Allergy Verified 08/08/24 20:08 Review of Systems Review of Systems: Constitutional : No Weight loss, No Fever, No Chills, No Night Sweats, No Fatigue, No Malaise ENT/Mouth : No Hearing loss, No Ear Pain, No Nasal Congestion, No Sinus Pain, No Hoarseness, No sore throat, No Rhinorrhea, No Swallowing Difficulty Eyes: No Eye Pain, No Swelling, No Redness, No Foreign Body, No Discharge, No Vision Changes Cardiovascular : No Chest Pain, No SOB, No Dyspnea on Exertion, No Orthopnea, No Edema, No Palpitations Respiratory : No Cough, No Sputum, No Wheezing, No Smoke Exposure, No Dyspnea Gastrointestinal : No Nausea, No Vomiting, No Diarrhea, No Constipation, No abdominal Pain, No Hematochezia, No Melena Genitourinary : no irregular bleeding, No Dysuria, No Urinary Frequency, No Hematuria, No Urinary Incontinence, No Urgency, No Flank Pain, No Urinary Flow Changes, No Hesitancy Musculoskeletal : No joint pain, No Myalgias, No Joint Swelling Skin : No Skin Lesions, No rash Neuro : No Weakness, No Numbness, No Paresthesias, No Loss of Consciousness, No Dizziness, No Headache Psych : Complaining of anxiety, admits to cocaine abuse, denies SI or HI, denies auditory or visual hallucinations Heme/Lymph: No Bruising, No Bleeding,No Lymphadenopathy Endocrine : No Polyuria, No Polydipsia, No Temperature Intolerance [facility] Past Medical History Medical History Acute psychosis Elevated liver enzymes Adderall use disorder, mild, abuse History of cocaine use History of foot ulcer Schizophrenia Surgical History S/P ear surgery Family History Family History Brother Substance use disorder Bipolar disorder Maternal Grandmother Schizophrenia Paternal Grandmother Mental health disorder Mother Diabetes mellitus Anxiety disorder Maternal Uncle Bipolar disorder Alcoholism Father Essential hypertension Social History Social History Household Members: Family Household Members Other:: mother and her partner Housing: House Alcohol intake: current Alcohol intake frequency: does not drink Patient Tobacco Use Status: Current everyday Tobacco user Tobacco use type: Cigarette Cigarette Packs Per Day: 1 Cigarettes Per Day: 20.0 Smoked in Last 30 Days: No e-Cigarette/Vaping Use: Never Used Use of substances other than those prescribed or required for medical reasons: Yes Substance Use Type: Crack/Cocaine Advance Directives: No Advance Directives Information Provided: Yes service: No Current occupational status: unemployed Sexual orientation: Don't Know Cognitive needs: No Hearing needs: No Vision needs: Yes Physical Exam Vital Signs: Vital Signs: Last Vital Signs Temp 99.2 F 08/08/24 21:50 Pulse 109 H 08/08/24 21:50 Resp 18 08/08/24 21:50 BP 131/80 08/08/24 21:50 Pulse Ox 97 08/08/24 21:50 O2 Del Method Room Air 08/08/24 21:50 BMI result Body Mass Index 29.5 Const: Other: Appearance: Alert. Oriented X3. No acute distress. Eyes: Pupils equal, round and reactive to light. ENT: Pharynx normal. Neck: Normal inspection. Neck supple. No lymph nodes noted. No crepitus CVS: Normal heart rate and rhythm. Pulses normal. Normal S1 and S2 Respiratory: No respiratory distress. Breath sounds normal. No Wheezing. No rales Abdomen: Soft and nontender. No rigidity. No distention. Skin: Skin warm and dry. Normal skin color. Normal skin turgor. Extremities: No lower extremity edema. No Lacerations. No Rash Neuro: Oriented X 3. No motor deficit. No sensory deficit. Moving all extremities. No slurred speech. CN 2 through 12 grossly intact Psych: calm, cooperative, normal affect Course Course Course Narrative: All of patient's labs pending Medical Decision Making Medical Decision Making [facility] Narrative: My interpretation of labs: No significant abnormality in patient's hematology or chemistry, normal LFTs. Urine toxicology positive for PCP, ETOH negative. Patient is awake, alert and oriented x3, calm and cooperative, stable vitals, patient ready for discharge Differential Diagnosis Differential Diagnoses: The differential diagnosis associated with the presentation includes (Polysubstance abuse, anxiety) Lab Data [facility] Lab Attestation statement: I reviewed the patient's lab results. 08/08/24 23:21 08/08/24 23:21 Labs: Lab Results 08/08/24 Range/Units 23:21 WBC 9.9 (4.8-10.8) X10*3/uL RBC 4.51 L (4.60-5.80) X10*6/uL Hgb 14.1 (14.0-18.0) g/dl Hct 40.5 L (42.0-52.0) % MCV 89.8 (80.0-98.0) fL MCH 31.3 (27.0-33.0) pg MCHC 34.8 (31.0-36.0) g/dl RDW 12.2 (11.0-16.0) % Plt Count 273 D (160-400) X10*3/uL MPV 9.0 L (9.4-12.4) fL Immature Gran % (Auto) 0.3 (0.0-0.4) % Neut % (Auto) 83.7 H (45-73) % Lymph % (Auto) 12.2 L (20-40) % Hodgeman % (Auto) 3.6 (2-11) % Eos % (Auto) 0.0 (0-4) % Baso % (Auto) 0.2 (0-2) % Lymph # (Auto) 1.2 (1.2-4.9) X10*3/uL Hodgeman # (Auto) 0.4 (0.1-1.2) X10*3/uL Eos # (Auto) 0.0 (0.0-0.4) X10*3/uL Baso # (Auto) 0.0 (0.0-0.2) X10*3/uL Abs Immat Gran (auto) 0.03 (0.00-0.03) X10*3/uL Absolute Neuts (auto) 8.3 (2.0-8.3) x10*3/uL Absolute Nucleated RBC 0.000 (0.0-0.012) X10*3/uL Nucleated RBC % (auto) 0.0 (0.0-0.2) /100WBC Sodium 144 (135-145) mmol/L Potassium 4.0 (3.3-5.1) mmol/L Chloride 109 H (96-108) mmol/L Carbon Dioxide 24 (22-29) mmol/L Anion Gap 15 (12-20) BUN 13 (9-16) mg/dL Creatinine 0.91 (0.5-1.4) mg/dL Estim Creat Clear Calc 132.1 Estimated GFR > 60 Random Glucose 96 (60-115) mg/dL Calcium 9.4 (8.4-10.2) mg/dL Total Bilirubin 0.2 (0.0-1.0) mg/dL Direct Bilirubin < 0.2 (0.0-0.5) mg/dL AST 28 (5-37) U/L ALT 27 (0-40) U/L Alkaline Phosphatase 63 (39-117) U/L Total Protein 7.3 (6.5-8.0) g/dL Albumin 4.3 (3.5-5.0) g/dL Urine Opiates Screen Not Detected (Not Detect) Ur Buprenorphine Scrn Not Detected (Not Detect) ng/mL Ur Oxycodone Screen Not Detected (Not Detect) ng/mL Urine Methadone Screen Not Detected (Not Detect) ng/mL Urine Fentanyl Screen Not Detected (Not Detect) Ur Barbiturates Screen Not Detected (Not Detect) Ur Phencyclidine Scrn POSITIVE H (Not Detect) Ur Amphetamines Screen Not Detected (Not Detect) U Benzodiazepines Scrn Not Detected (Not Detect) Urine Cocaine Screen Not Detected (Not Detect) U Marijuana (THC) Screen Not Detected (Not Detect) Ethyl Alcohol < 10 mg/dL Discharge Plan Discharge Clinical Impression: PCP abuse Patient Disposition: Home, Self-Care Instructions: Polysubstance Abuse (ED) Additional Instructions: Please follow-up with your primary care physician tomorrow. If you have any worsening or new symptoms, please return to the emergency room or call 911 Prescriptions: No Action Abilify Maintena 400 mg Suspension,Extended Rel Syring 400 mg IM Q28D Qty: 1 0RF Patient Comments: Confirmed dose on 04/10/24 with Samira at [facility] Rx Instructions: Verified by mother [phone] divalproex 500 mg tablet,delayed release (DR/EC) 1,000 mg PO BEDTIME Rx Instructions: per pharmacy takes 1000mg propranolol 10 mg tablet 10 mg PO BID PRN (Reason: anxiety) paliperidone [Invega] 6 mg Tablet Extended Release 24 Hr 6 mg PO DAILY Qty: 0 0RF benztropine 1 mg tablet 1 mg PO BID trazodone 100 mg tablet 100 mg PO BEDTIME omeprazole 20 mg capsule,delayed release(DR/EC) 20 mg PO DAILY cholecalciferol (vitamin D3) 25 mcg (1,000 unit) tablet 25 mcg PO DAILY Print Language: [place]
[2024-08-08 23:26] LABS: MANUAL DIFF FLAG NO
[2024-08-08 23:27] LABS: Basophils Percent Auto 0.2 % (0-2); Hematocrit 40.5 % (42.0-52.0); Hemoglobin 14.1 g/dl (14.0-18.0); Imm Gran Abs Auto 0.03 X10*3/uL (0.00-0.03); Imm Gran Pct Auto 0.3 % (0.0-0.4); Lymphocytes Absolute Auto 1.2 X10*3/uL (1.2-4.9); Lymphocytes Percent Auto 12.2 % (20-40); Mean Corpuscular HGB Conc 34.8 g/dl (31.0-36.0); Mean Corpuscular Hemoglobin 31.3 pg (27.0-33.0); Mean Corpuscular Volume 89.8 fL (80.0-98.0); Monocytes Absolute Auto 0.4 X10*3/uL (0.1-1.2); Monocytes Percent Auto 3.6 % (2-11); Neutrophils Absolute Auto 8.3 x10*3/uL (2.0-8.3); Neutrophils Percent Auto 83.7 % (45-73); Platelet Count 273 X10*3/uL (160-400); Red Blood Count 4.51 X10*6/uL (4.60-5.80); Red Cell Distribution Width 12.2 % (11.0-16.0); White Blood Count 9.9 X10*3/uL (4.8-10.8)
[2024-08-08 23:37] LABS: Amphetamine Screen Urine Not Detected (Not Detect); Barbiturates, Urine Not Detected (Not Detect); Benzodiazepines Screen Urine Not Detected (Not Detect); Buprenorphine Scr Not Detected (Not Detect); Cannabinoid Screen Urine Not Detected (Not Detect); Cocaine Screen Urine Not Detected (Not Detect); Fentanyl, urine Not Detected (Not Detect); Methadone Screen, Urine Not Detected (Not Detect); Opiate Screen Urine Not Detected (Not Detect); Oxycodone Screen Urine Not Detected (Not Detect); Phencyclidine Screen Urine POSITIVE (Not Detect)
[2024-08-08 23:50] LABS: Alanine Aminotransferase 27 U/L (0-40); Albumin Level 4.3 g/dL (3.5-5.0); Alkaline Phosphatase 63 U/L (39-117); Anion Gap 15 (12-20); Aspartate Amino Transferase 28 U/L (5-37); Bilirubin Direct < 0.2 mg/dL (0.0-0.5); Bilirubin Total 0.2 mg/dL (0.0-1.0); Blood Urea Nitrogen 13 mg/dL (9-16); Calcium 9.4 mg/dL (8.4-10.2); Carbon Dioxide 24 mmol/L (22-29); Chloride 109 mmol/L (96-108); Creatinine Clr Calc Pharmacy 132.1; Estimated Glomerular Filt Rate > 60; Ethanol < 10 mg/dL; Glucose Random 96 mg/dL (60-115); Sodium 144 mmol/L (135-145); Total Protein 7.3 g/dL (6.5-8.0)
[2024-08-08 23:54] VITALS: BP 143/88; PULSE 99; RESP 18; TEMP 37.1; O2SAT 96
[2024-08-09 00:08] VITALS: BP 143/88; PULSE 99; RESP 18; TEMP 37.1; O2SAT 96
== END 2024-08-09 00:09 | disposition home or self-care (01) ==
PROVIDERS: Emergency Provider Emergency Medicine; PCP Internal Medicine
DX: F16.10 Hallucinogen abuse, uncomplicated (principal); F14.10 Cocaine abuse, uncomplicated; F20.9 Schizophrenia, unspecified; F17.210 Nicotine dependence, cigarettes, uncomplicated; Z79.899 Other long term (current) drug therapy
CPT/HCPCS: 36415; 80048; 80076; 80307; 85025; 99284